=== PATIENT | male | born 1985 | race Caucasian/White ===

== ENCOUNTER 2017-04-07 08:00 | Outpatient (CLI) | payer MEDICAID ==
[2017-04-07 18:07] LABS: BASOPHILS # (AUTO) 0.1 10^3/uL (0.0-0.1); BASOPHILS % (AUTO) 0.5 %; EOSINOPHILS # (AUTO) 0.3 10^3/uL (0.0-0.7); EOSINOPHILS % (AUTO) 2.5 %; HGB - HEMOGLOBIN 16.8 g/dL (14.0-18.0); LYMPHOCYTES # (AUTO) 3.1 10^3/uL (1.5-3.5); LYMPHOCYTES % (AUTO) 25.5 %; MEAN CORPUSCULAR HEMOGLOBIN 28.8 pg (27.0-31.0); MEAN CORPUSCULAR VOLUME 87.4 fL (80.0-94.0); MEAN PLATELET VOLUME 7.9 fL (7.4-11.4); MONOCYTES % (AUTO) 7.8 %; NEUTROPHILS # (AUTO) 7.8 10^3/uL (1.5-6.6); NEUTROPHILS % (AUTO) 63.7 %; PLT - PLATELET COUNT 328 10^3/uL (130-450); RED BLOOD COUNT 5.82 10^6/uL (4.70-6.10); RED CELL DISTRIBUTION WIDTH 13.1 % (12.0-15.0); WHITE BLOOD COUNT 12.3 x10^3/uL (4.8-10.8)
[2017-04-07 18:35] LABS: ALBUMIN 4.6 g/dL (3.2-5.5); ALBUMIN/GLOBULIN RATIO 1.2 (1.0-2.2); BILIRUBIN,TOTAL 0.6 mg/dL (0.2-1.0); CALCIUM 9.5 mg/dL (8.5-10.3); CREATININE 0.8 mg/dL (0.6-1.2); TOTAL PROTEIN 8.4 g/dL (6.7-8.2)
== END 2017-04-07 08:01 | disposition home or self-care (01) ==
LOC: LAB.F 08:00
PROVIDERS: ATTEND Nurse Practitioner Family
DX: R06.02 Shortness of breath (principal)
CPT/HCPCS: 36415; 80053; 83540; 83880; 84466; 85025

== ENCOUNTER 2017-04-07 14:48 | Outpatient (CLI) | payer MEDICAID ==
--- NOTE | 2017-04-07 16:03 | XRAY Report ---
DATE OF SERVICE: 04/07/2017 TWO VIEW CHEST: 04/07/2017 CLINICAL INDICATION: Shortness of breath. COMPARISON: 12/24/2014. FINDINGS: Frontal and lateral views of the chest demonstrate a normal cardiac silhouette. The lungs are clear. No effusion or pneumothorax is present. IMPRESSION: NORMAL CHEST. TD: 04/07/2017 17:02
== END 2017-04-07 14:49 | disposition home or self-care (01) ==
LOC: DI.S 14:48
PROVIDERS: ATTEND Nurse Practitioner Family
DX: R06.02 Shortness of breath (principal)
CPT/HCPCS: 36415; 71046; 80053; 83540; 83880; 84466; 85025; 93005

== ENCOUNTER 2017-04-16 09:29 | Outpatient (CLI) | payer MEDICAID ==
[2017-04-16] MEDS ORDERED: ALBUTEROL NEB 2.5 MG/3 ML INH ONE (11:00)
== END 2017-04-16 09:30 | disposition home or self-care (01) ==
LOC: RT 09:29
PROVIDERS: ATTEND Nurse Practitioner Family
DX: R06.02 Shortness of breath (principal)
CPT/HCPCS: 94060; J7613

== ENCOUNTER 2017-04-17 14:15 | Outpatient (CLI) | payer MEDICAID ==
[2017-04-17 17:52] LABS: BASOPHILS # (AUTO) 0.1 10^3/uL (0.0-0.1); BASOPHILS % (AUTO) 0.6 %; EOSINOPHILS # (AUTO) 0.4 10^3/uL (0.0-0.7); EOSINOPHILS % (AUTO) 2.5 %; HGB - HEMOGLOBIN 16.2 g/dL (14.0-18.0); LYMPHOCYTES # (AUTO) 4.3 10^3/uL (1.5-3.5); LYMPHOCYTES % (AUTO) 29.7 %; MEAN CORPUSCULAR HEMOGLOBIN 28.9 pg (27.0-31.0); MEAN CORPUSCULAR HGB CONC 33.4 g/dL (32.0-36.0); MEAN CORPUSCULAR VOLUME 86.5 fL (80.0-94.0); MEAN PLATELET VOLUME 8.7 fL (7.4-11.4); MONOCYTES # (AUTO) 1.1 10^3/uL (0.0-1.0); MONOCYTES % (AUTO) 7.6 %; NEUTROPHILS # (AUTO) 8.6 10^3/uL (1.5-6.6); NEUTROPHILS % (AUTO) 59.6 %; PLT - PLATELET COUNT 308 10^3/uL (130-450); RED BLOOD COUNT 5.62 10^6/uL (4.70-6.10); RED CELL DISTRIBUTION WIDTH 13.1 % (12.0-15.0); WHITE BLOOD COUNT 14.5 x10^3/uL (4.8-10.8)
== END 2017-04-17 14:16 | disposition home or self-care (01) ==
LOC: LAB.S 14:15
PROVIDERS: ATTEND Nurse Practitioner Family
DX: R53.82 Chronic fatigue, unspecified (principal); R63.5 Abnormal weight gain
CPT/HCPCS: 36415; 84443; 85025

== ENCOUNTER 2018-04-03 15:22 | Observation (INO) | payer MEDICAID ==
[2018-04-03] MEDS ORDERED: MORPHINE 2 MG/ML CARPUJECT IVP STA ×2 (15:44→18:34)
[2018-04-03] MEDS ORDERED: ONDANSETRON 4 MG/2 ML VIAL IVP STA (15:44)
[2018-04-03] MEDS ORDERED: SODIUM CHLORIDE 0.9% 1,000 ML IV ONE ×2 (15:44→18:17)
[2018-04-03] MEDS ORDERED: ALBUTEROL NEB 2.5 MG/3 ML INH STA (15:45)
--- NOTE | 2018-04-03 15:48 | ED Physician Documentation ---
History of Present Illness - Stated complaint Stated Complaint: AB PX - Chief complaint Chief Complaint: Abd Pain - History obtained from History obtained from: Patient - History of Present Illness Timing: How many weeks ago (several) Pain level max: 8 Pain level now: 8 Improved by: nothing Worsened by: nothing - Additonal information Additional information: Patient is a 33-year-old male who presents to the emergency department with multiple medical problems. The first is increasing abdominal distention over the past several weeks. Also noted yellowing of the skin and eyes. He saw his PCP today who referred him here. The second is a rash to the groin that is been ongoing for several weeks. States it is worsening and he feels that there is pus draining between his legs. Patient does have a history of heavy alcohol use, but states he has cut back over the last year. No fevers. No vomiting, has had diarrhea. No blood. Patient states he is having difficulty urinating and dark urine as well. Review of Systems Ten Systems: 10 systems reviewed and negative Constitutional: denies: Fever, Chills Ears: denies: Ear pain Nose: denies: Rhinorrhea / runny nose, Congestion Throat: denies: Sore throat Cardiac: denies: Chest pain / pressure Respiratory: reports: Wheezing (out of his inhaler). denies: Dyspnea, Cough GI: denies: Nausea, Vomiting, Diarrhea : denies: Dysuria Skin: denies: Rash Musculoskeletal: denies: Neck pain, Back pain Neurologic: denies: Headache PD PAST MEDICAL HISTORY - Past Medical History Past Medical History: Yes Respiratory: Asthma Psych: Anxiety - Past Surgical History Past Surgical History: Yes - Present Medications Home Medications: Ambulatory Orders Medication Instructions Recorded Confirmed LORazepam [Ativan] 0.5 - 1 mg PO Q6H PRN #20 tablet 10/31/15 Nystatin 5 ml PO QID 10 Days ml 10/31/15 Nystatin Cream [Mycostatin Cream] 1 applic TOP BID #1 tube 10/31/15 Ondansetron Odt [Zofran] 4 mg TL Q6H PRN #10 tablet 10/31/15 - Allergies Allergies/Adverse Reactions: Allergies Allergy/AdvReac Type Severity Reaction Status Date / Time No Known Drug Allergies Allergy Verified 12/24/14 15:18 - Living Situation Living Situation: reports: With family Living Arrangement: reports: At home - Social History Does the pt smoke?: Yes Smoking Status: Current every day smoker Does the pt drink ETOH?: Yes Does the pt have substance abuse?: Yes - Immunizations Immunizations are current?: No PD ED PE NORMAL - Vitals Vital signs reviewed: Yes - General General: Alert and oriented X 3, No acute distress - HEENT HEENT: PERRL, Moist mucous membranes, Pharynx benign, Other (scleral icterus) - Neck Neck: Supple, no meningeal sign - Cardiac Cardiac: RRR - Respiratory Respiratory: No respiratory distress, Clear bilaterally - Abdomen Abdomen: Soft, Other (mild diffuse TTP. no peritoneal signs. 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[employer]), Other (erythema and pustules to the groin and perineum) - Back Back: No CVA TTP, No spinal TTP - Derm Derm: Warm and dry - Extremities Extremities: Other (1+ B LE edema) - Neuro Neuro: Alert and oriented X 3 - Psych Psych: Normal mood, Normal affect Results - Vitals Vitals: Vital Signs - 24 hr 04/03/18 04/03/18 04/03/18 15:24 16:01 17:18 Temperature 36.2 C L Heart Rate 118 H 108 H 87 Respiratory 18 11 L 11 L Rate Blood Pressure 161/104 H 166/102 H O2 Saturation 96 99 Oxygen O2 Source Room air - Labs Labs: Laboratory Tests 04/03/18 04/03/18 04/03/18 15:34 15:49 15:49 WBC 16.6 H RBC 3.76 L Hgb 13.7 L Hct 41.2 L MCV 109.7 H MCH 36.4 H MCHC 33.2 RDW 17.4 H Plt Count 352 MPV 7.5 Neut # (Auto) Not Reportable Lymph # (Auto) Not Reportable [place] # (Auto) Not Reportable Eos # (Auto) Not Reportable Baso # (Auto) Not Reportable Absolute Nucleated RBC Not Reportable Total Counted 100 Band Neuts % (Manual) 4 Abnorm Lymph % (Manual) 0 Nucleated RBC % Not Reportable Neutrophils # (Manual) 14.8 H Lymphocytes # (Manual) 1.2 L Monocytes # (Manual) 0.7 Eosinophils # (Manual) 0.0 Basophils # (Manual) 0.0 Differential Comment MANUAL DIFFERENTIAL Manual Slide Review Indicated WBC Morphology NORMAL APPEARANCE Platelet Estimate NORMAL (130-450,000) Platelet Morphology NORMAL APPEARANCE RBC Morph Micro Appear 1+ TARGET CELLS PT INR APTT Sodium 133 L Potassium 3.4 L Chloride 95 L Carbon Dioxide 23 Anion Gap 15.0 H BUN 5 L Creatinine 0.5 L Estimated GFR (MDRD) 189 Glucose 118 H Calcium 8.2 L Iron TIBC % Saturation Transferrin Total Bilirubin 9.6 H AST 311 H ALT 67 H Alkaline Phosphatase 239 H Total Protein 7.7 Albumin 3.0 L Globulin 4.7 H Albumin/Globulin Ratio 0.6 L Lipase 38 Urine Color ORANGE Urine Clarity TURBID Urine pH 6.5 Ur Specific [place] 1.025 Urine Protein 30 H Urine Glucose (UA) 100 H Urine Ketones >=80 H Urine Occult Blood NEGATIVE Urine Nitrite POSITIVE H Urine Bilirubin NEGATIVE Urine Urobilinogen 2 H Ur Leukocyte Esterase NEGATIVE Urine RBC 0-5 Urine WBC 0-3 Ur Squamous Epith Cells NONE SEEN Amorphous Sediment Marked Urine Bacteria None Seen Urine Mucus Marked Strands Ur Microscopic Review INDICATED Urine Culture Comments INDICATED 04/03/18 04/03/18 04/03/18 15:49 15:49 16:57 WBC RBC Hgb Hct MCV MCH MCHC RDW Plt Count MPV Neut # (Auto) Lymph # (Auto) [place] # (Auto) Eos # (Auto) Baso # (Auto) Absolute Nucleated RBC Total Counted Band Neuts % (Manual) Abnorm Lymph % (Manual) Nucleated RBC % Neutrophils # (Manual) Lymphocytes # (Manual) Monocytes # (Manual) Eosinophils # (Manual) Basophils # (Manual) Differential Comment Manual Slide Review WBC Morphology Platelet Estimate Platelet Morphology RBC Morph Micro Appear PT 16.8 H INR 1.5 H APTT 32.3 Sodium Potassium Chloride Carbon Dioxide Anion Gap BUN Creatinine Estimated GFR (MDRD) Glucose Calcium Iron 75 TIBC 193 L % Saturation 39 Transferrin 138 L Total Bilirubin AST ALT Alkaline Phosphatase Total Protein Albumin Globulin Albumin/Globulin Ratio Lipase Urine Color Urine Clarity Urine pH Ur Specific [place] Urine Protein Urine Glucose (UA) Urine Ketones Urine Occult Blood Urine Nitrite Urine Bilirubin Urine Urobilinogen Ur Leukocyte Esterase Urine RBC Urine WBC Ur Squamous Epith Cells Amorphous Sediment Urine Bacteria Urine Mucus Ur Microscopic Review Urine Culture Comments - Rads (name of study) CT abd/pelvis Radiology: Prelim report reviewed, EMP read contemporaneously, See rad report (There is severe hepatic steatosis. Small amount of ascites. No dilated or thick-walled bowel is seen. No evidence of bowel obstruction. No clear evidence of appendicitis. ) abd US Radiology: Prelim report reviewed, EMP read contemporaneously, See rad report (Diffuse hepatic steatosis. No acute sonographic abnormalities. ) PD MEDICAL DECISION MAKING - ED course Complexity details: reviewed results, re-evaluated patient, considered differential, d/w patient, d/w family, d/w health and safety consultant ED course: D/w Dr. Raad ULLOA who recommends supportive care overnight, recheck in am and if improved can follow up in clinic, if worsening, recontact GI for further care recommendations. Patient appears to have severe steatohepatitis on CT scan. Iron studies were sent for possible hematomacrosis. ceruloplasmin was sent for possible Anthony's disease. He also appears to have a significant fungal infection in his groin with secondary infection. Given IV antibiotics and nystatin powder. We will pl josiane the patient in observation for repeat laboratory testing in the morning. Patient is well-appearing, nontoxic. Discussed the case with Dr. Gonzalez, hospitalist who accepts This document was made in part using voice recognition software. While efforts are made to proofread this document, sound alike and grammatical errors may occur. Departure - Departure Disposition: ED Place in Observation Clinical Impression: Hyperbilirubinemia, Transaminitis, Steatohepatitis, Rosa infection of genital region, Secondary infection of skin Condition: Stable Discharge Date/Time: 04/03/18 19:25
[2018-04-03 16:05] LABS: BASOPHILS % (AUTO) 1.5 %; HGB - HEMOGLOBIN 13.7 g/dL (14.0-18.0); LYMPHOCYTES % (AUTO) 6.8 %; MEAN CORPUSCULAR HEMOGLOBIN 36.4 pg (27.0-31.0); MEAN CORPUSCULAR HGB CONC 33.2 g/dL (32.0-36.0); MEAN CORPUSCULAR VOLUME 109.7 fL (80.0-94.0); MEAN PLATELET VOLUME 7.5 fL (7.4-11.4); NEUTROPHILS % (AUTO) 84.7 %; PLT - PLATELET COUNT 352 10^3/uL (130-450); RED BLOOD COUNT 3.76 10^6/uL (4.70-6.10); RED CELL DISTRIBUTION WIDTH 17.4 % (12.0-15.0); WHITE BLOOD COUNT 16.6 x10^3/uL (4.8-10.8)
[2018-04-03] MEDS ORDERED: IOVERSOL 320 100 ML VIAL IVP ONE ×2 (16:05→16:35)
[2018-04-03 16:09] LABS: ABNORMAL LYMPHS % (MANUAL) 0 %
[2018-04-03 16:11] LABS: ALBUMIN/GLOBULIN RATIO 0.6 (1.0-2.2); BILIRUBIN,TOTAL 9.6 mg/dL (0.2-1.0); CALCIUM 8.2 mg/dL (8.5-10.3); CREATININE 0.5 mg/dL (0.6-1.2); TOTAL PROTEIN 7.7 g/dL (6.7-8.2)
[2018-04-03 16:24] LABS: GLUCOSE, URINE (UA) 100 mg/dL (NEGATIVE); KETONES,URINE (UA) >=80 mg/dL (NEGATIVE); LEUKOCYTE ESTERASE, URINE NEGATIVE (NEGATIVE); NITRITE,URINE POSITIVE (NEGATIVE); OCCULT BLOOD,URINE NEGATIVE (NEGATIVE); PH,URINE 6.5 PH (5.0-7.5); PROTEIN,URINE 30 mg/dL (NEGATIVE); UROBILINOGEN,URINE 2 E.U./dL (NORMAL)
[2018-04-03 16:31] LABS: INR 1.5 (0.8-1.2); PT - PROTHROMBIN TIME 16.8 secs (9.9-12.6)
[2018-04-03 16:32] LABS: AMORPHOUS SEDIMENT,UR Marked /LPF; BACTERIA,URINE None Seen /HPF (None Seen); BILIRUBIN,URINE NEGATIVE (NEGATIVE); CLARITY,URINE TURBID (CLEAR); ICTOTEST,URINE NEGATIVE; MUCUS,URINE Marked Strands; RBC,URINE 0-5 /HPF (0-5); SQUAMOUS EPITHELIAL CELL,UR NONE SEEN (<= Few)
[2018-04-03 16:37] LABS: BAND NEUTROPHILS % (MANUAL) 4 %; LYMPHOCYTES # (MANUAL) 1.2 10^3/uL (1.5-3.5); LYMPHOCYTES % (MANUAL) 7 %; MONOCYTES # (MANUAL) 0.7 10^3/uL (0.0-1.0); NEUTROPHILS # (MANUAL) 14.8 10^3/uL (1.5-6.6); NEUTROPHILS % (MANUAL) 85 %
[2018-04-03 16:38] LABS: DIFFERENTIAL COMMENT MANUAL DIFFERENTIAL; PLATELET ESTIMATE, MANUAL NORMAL (130-450,000) (NORMAL); PLATELET MORPHOLOGY NORMAL APPEARANCE (NORMAL)
--- NOTE | 2018-04-03 17:04 | CT Report ---
Reason: abd distention, jaundice, pain Procedure Date: 04/03/2018 Accession Number: [id number] / [id number] Procedure: CT - Abdomen/Pelvis W/ CPT Code: FULL RESULT: EXAM: CT ABDOMEN AND PELVIS EXAM DATE: 04/03/2018 04:23 PM. CLINICAL HISTORY: Abd distention, jaundice, pain. COMPARISONS: None. TECHNIQUE: Routine helical CT imaging was performed through the abdomen and pelvis. IV contrast: OPTIRAY 320 90mL. Enteric contrast: No. Reconstructions: Coronal and sagittal. In accordance with CT protocol optimization, one or more of the following dose reduction techniques were utilized for this exam: automated exposure control, adjustment of mA and/or KV based on patient size, or use of iterative reconstructive technique. FINDINGS: Lung Bases: Unremarkable. Liver: There is severe hepatic steatosis. No focal hepatic lesions are seen. Gallbladder/Bile Ducts: Unremarkable. Spleen: Normal. Pancreas: Normal. Adrenal Glands: Normal. Kidneys: Normal. No masses or hydronephrosis. Peritoneal Cavity/Bowel: No dilated or thick-walled bowel is seen. There are is a small amount of free fluid within the right lower quadrant and pelvis. No intraperitoneal free air. There are mildly enlarged fam hepatis lymph nodes. No enlarged retroperitoneal lymph nodes. The visualized appendix is within normal limits. The distal appendix is obscured by right lower quadrant fluid. Pelvic Organs: Normal. The bladder and visualized pelvic organs are within normal limits. Vasculature: No aneurysms or other significant abnormality. Bones: Patient has undergone internal fixation of right acetabular fracture. No acute bony abnormalities are seen. Other: None. IMPRESSION: 1. There is severe hepatic steatosis. 2. Small amount of ascites. 3. No dilated or thick-walled bowel is seen. No evidence of bowel obstruction. No clear evidence of appendicitis. RADIA
--- NOTE | 2018-04-03 17:18 | Ultrasound Report ---
Reason: abd distention, jaundice, pain Procedure Date: 04/03/2018 Accession Number: [id number] / [id number] Procedure: US - Abdomen Limited CPT Code: FULL RESULT: EXAM: ABDOMEN ULTRASOUND LIMITED, RUQ EXAM DATE: 04/03/2018 05:02 PM. CLINICAL HISTORY: Abd distention, jaundice, pain. COMPARISON: None. TECHNIQUE: Real-time scanning was performed with static images obtained. FINDINGS: Liver: Diffusely increased echogenicity 20.3 cm. Main portal vein flow: Hepatopetal. Gallbladder: No stones, wall thickening, or sonographic Smith's sign. Biliary System: CBD measures 4 mm. No intrahepatic or extrahepatic ductal dilatation. Other: Right kidney measures 10.4 cm without hydronephrosis. IMPRESSION: Diffuse hepatic steatosis. No acute sonographic abnormalities. RADIA
[2018-04-03 17:27] LABS: % IRON SATURATION 39 % (20-50); IRON 75 ug/dL (45-182); TOTAL IRON BINDING CAPACITY 193 ug/dL (250-450); TRANSFERRIN 138 mg/dL (180-329)
[2018-04-03] MEDS ORDERED: NYSTATIN POWDER 15 GM TOP STA (18:10)
[2018-04-03] MEDS ORDERED: AMPICILLIN/SULBACTAM 3 GM in SODIUM CHLORIDE 0.9% MINIBAG 100 ML IV STA (18:17)
[2018-04-03] MEDS ORDERED: ONDANSETRON ODT 4 MG TABLET TL PRN (18:40)
[2018-04-03] MEDS ORDERED: SODIUM CHLORIDE FLUSH 0.9% 10 ML SYRINGE IVP PRN (18:40)
[2018-04-03] MEDS ORDERED: PROCHLORPERAZINE 10 MG/2 ML VIAL IVP PRN (18:40)
[2018-04-03] MEDS ORDERED: ONDANSETRON 4 MG/2 ML VIAL IVP PRN (18:40)
[2018-04-03] MEDS ORDERED: IBUPROFEN 400 MG TABLET PO PRN (18:40)
--- NOTE | 2018-04-03 18:50 | HISTORY & PHYSICAL EXAMINATION ---
Chief Complaint - Chief Complaint Chief Complaint: Increasing abdominal pain, yellow stool, jaundice, and lower groin rash History of Present Illness - Admitted From Admitted From:: Home/ER - History Obtained From Records Reviewed: [facility] and [facility] History obtained from: Dr. Mcgowan, brad, and patient Exam Limitations: None - History of Present Illness HPI Comment/Other: This is a 33-year-old man who went to see his primary care provider today because he had a rash. The symptoms began 3 weeks ago and were over his lower abdomen and groin. He was also having decreased urine output and problems urinating. He said in the last week is probably urinated less than a cup of fluid. He also started vomiting, and he does not know why. He cannot remember when he started vomiting. His abdomen has become distended and painful. His testicles are enlarged. His stools are different and that he is noticing more more mucus and that they are yellow. He is a drinker and drank quite a bit around [place]. He did not go see his doctor because he was worried about legal issues. He does have a history of hepatitis C that was treated in 2007 Noted in his outpatient medical record. But he says he is never had hepatitis C. With Dr. Mcgowan's history he is told that the patient has increasing abdominal pain, increasing abdominal girth, jaundice, diarrhea. For the last 2 days he has not been able to urinate. In the emergency room he is hyponatremic, hypokalemic, a bili of 9.6, AST 311, ALT 67. Alk phos is 239. INR is 1.5. White blood count is elevated at 16.6. His white cell count has been elevated over the last year. His sister has been diagnosed with sarcoidosis. Dr. Mcgowan spoke to Dr. Shankar, [facility] gastroenterology. They would like the patient placed under observation to make sure his liver enzymes are getting any worse. They want him hydrated, and his labs repeated tomorrow. If his labs are worse to recontact them because he may need to be transferred. If his labs are better stable he is probably a candidate for going home and following up with his primary care provider. History - Past Medical History Cardiovascular: reports: None Respiratory: reports: Asthma (Pulmonary function studies done in 2018 FVC is 3.94, FEV1 is 2.94. Ratio is 74%. They are mildly reduced indicating airway obstruction. Following administration of bronchodilators there is no significant response. He has had a CT of the chest looking for sarcoidosis.) Neuro: reports: None Endocrine/Autoimmune: reports: None GI: reports: GERD, Hemorrhoids, Hepatitis (Hepatitis C is noted in his past medical record and the [facility] clinic chart. It said he was treated in 2007. But he denies ever having hepatitis C) : reports: None HEENT: reports: None Psych: reports: Anxiety, Other (social aversion) Musculoskeletal: reports: Fatigue, Other (chronic right hip pain) Derm: reports: None MRSA Hx?: No - Past Surgical History Ortho: reports: Other (Right acetabular fracture with repair in 2008) - Family & Social History Family History Comment/Other: Mother is alive and well and healthy with no major medical issues In her mid 70s. Dad is alive and well with no major medical issues In his mid 70s. He is 1 of 5 siblings. Sister has sarcoidosis. One brother of alcoholic liver disease. 3 children are healthy with no major medical illnesses Living arrangement: At home Living Situation: With family Social History Notes: smokes 1/2 ppd. Drinks a 750 mL bottle of vodka, half of it, once a week. Continue to drink through the holidays. He started drinking in the summer and is continued into the winter. He was off alcohol for a year. He denies any cocaine, heroin, LSD, methamphetamines. Right [facility] taking care of 3 kids. 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 - Substance History Use: Uses substance without health or social issues: Tobacco, Alcohol - POLST Patient has POLST: No Meds/Allgy - Home Medications Home Medications: Ambulatory Orders Medication Instructions Recorded Confirmed LORazepam [Ativan] 0.5 - 1 mg PO Q6H PRN #20 tablet 10/31/15 Ondansetron Odt [Zofran] 4 mg TL Q6H PRN #10 tablet 10/31/15 RX: Nystatin 5 ml PO QID 10 Days ml 10/31/15 RX: Nystatin Cream [Mycostatin 1 applic TOP BID #1 tube 10/31/15 Cream] - Allergies Allergies/Adverse Reactions: Allergies Allergy/AdvReac Type Severity Reaction Status Date / Time No Known Drug Allergies Allergy Verified 12/24/14 15:18 Review of Systems - Constitutional Constitutional: reports: Fatigue, Chills, Malaise, Weakness, Poor appetite, Weight gain. denies: Fever, Diaphoresis, Night sweats - Eyes Eyes: denies: Pain, Irritation, Amaurosis, Blurred vision, Dipolpia - Ears, Nose & Throat Ears, Nose & Throat: denies: Ear pain, Hearing loss, Hearing aids, Nasal congestion, Postnasal drainage - Cardiovascular Cariovascular: reports: Edema, Exertional dyspnea, Decr. exercise tolerance. denies: Irregular heart rate, Palpitations, Chest pain, Lightheadedness, Syncope - Respiratory Respiratory: reports: Wheezing (Uses [id number] Primatene Mist as needed done so in a few weeks). denies: Cough, Sputum production, Snoring, Hemoptysis, Orthopnea, SOB at rest - Gastrointestinal Gastrointestinal: reports: Abdominal pain, Abdominal distention, Diarrhea (Of yellow stool that started about a month and a half ago), Change in bowel habits, Nausea, Vomiting, Reflux/heartburn (Protonix for the last week has not helped), Bloating, Poor appetite. denies: Constipation, Rectal bleeding, Levar blood emesis, Coffee grounds emesis - Genitourinary Genitourinary: reports: Other (Has been urinating less and less over the last week). denies: Dysuria, Frequency, Urgency, Hematuria - Musculoskeletal Musculoskeletal: denies: Muscle pain, Back pain, Muscle aches, Stiffness - Integumentary Integumentary: reports: Rash (Lower abdomen and into perineum), Lesions - Neurological Neurological: reports: General weakness. denies: Focal weakness, Headache, Dizziness, Numbness, Memory problems, Pre-existing deficit, Abnormal gait - Psychiatric Psychiatric: denies: Depression, Anxiety, Suicidal - Endocrine Endocrine: denies: Polyuria, Polydypsia, Polyphagia - Hematologic/Lymphatic Hematologic/Lymphatic: denies: Anemia, Bruising, Petechiae Prior Level of Functionality: Up until a month ago he was completely independent with activities of daily living. He takes care of 3 kids at home. Very active children. Drives, pays bills, etc. Starting a month ago started to slow down, and spends most of his time in a chair right now because of abdominal discomfort, fatigue, and just not feeling well Exam - Vital Signs Reviewed Vital Signs: Yes Vital Signs: Vital Signs x48h Temp Pulse Resp BP Pulse Ox 04/03/18 17:18 87 11 L 04/03/18 16:01 108 H 11 L 166/102 H 99 04/03/18 15:24 36.2 C L 118 H 18 161/104 H 96 - Physical Exam General Appearance: positive: Alert, Mild distress Eyes Bilateral: positive: PERRL, EOMI, Other (Icterus bilaterally) ENT: positive: Dry mucous membranes Neck: positive: No JVD. negative: Stiff neck, Carotid bruit Respiratory: positive: Chest non-tender, Rhonchi. negative: Wheezes, Rales Cardiovascular: positive: Regular rate & rhythm, No murmur. negative: Gallop/S4, Friction rub Peripheral Pulses: positive: 1+ Abdomen: positive: Tenderness, Other (Huge distended abdomen, edematous over his lower abdomen into his testicles and perineum and upper thighs. Skin breakdown into intertriginous folds of groin, perineum is red and macerated. Testicles distended with fluid. Penis is almost disappeared into his folds.) Skin: positive: Warm Extremities: positive: Full ROM, Pedal edema Neurologic/Psychiatric: positive: Oriented x3, CN's nml (2-12), Motor nml, Weakness Conclusion/Plan - Problem List (1) Hepatitis Conclusion/Plan: This gentleman may have alcoholic hepatitis with liver failure.. Hepatitis from another cause such as autoimmune hepatitis, infectious hepatitis (A, B, C) disease. No one else is sick in the family. He is not in any employment that would expose him to toxins. He has been drinking quite a bit. Then there is the hepatitis C positive history and his old medical record that he does not remember. We will have to speak to his primary care provider. Per [facility] gastroenterology request, we have already done hepatitis panel. His abdominal ultrasound shows diffuse hepatic steatosis. Gallbladder is without stones or wall thickening or Smith sign. Common bile duct is 4 mm. Abdominal/pelvic CT has severe hepatic steatosis. No focal hepatic lesions. Gallbladder normal. Spleen is normal and no evidence of portal hypertension. There is a small amount of free fluid within the right lower quadrant and pelvis. No intraperitoneal free air. The urinary bladder and visualized pelvic organs are within normal limits. Small amount of ascites. Plan: Observation stay IV fluids for hydration Control of symptoms of nausea and vomiting with antiemetics Reassess in the morning and speak to [facility] to see if he is a candidate for transfer or to go home (2) Electrolyte and fluid disorder Conclusion/Plan: Hyponatremia, hypokalemia seen in the face of hepatitis. Plan: Simple IV fluids. Repeat BMP in the morning. (3) Alcohol abuse Conclusion/Plan: We will watch for signs of withdrawal. Give a banana bag. Will check urine tox screen to make sure there is no other substances he may not be so forthright about. (4) Cellulitis, perineum Conclusion/Plan: unsasyn day #2. also will add nystain power. - Lab Results Lab results reviewed: Yes Fish Bones: 04/04/18 05:10 04/04/18 05:10 Other Lab Results: Laboratory Tests 04/03/18 04/03/18 04/03/18 15:49 15:49 15:49 WBC 16.6 H Hgb 13.7 L Hct 41.2 L Plt Count 352 INR 1.5 H Sodium 133 L Potassium 3.4 L Chloride 95 L Anion Gap 15.0 H BUN 5 L Creatinine 0.5 L Glucose 118 H Total Bilirubin 9.6 H AST 311 H ALT 67 H Alkaline Phosphatase 239 H Lipase 38 - Diagnostic Imaging Results Diagnostic Imaging Results: positive: Final report reviewed Diagnostic Imaging Results Comments: ABDOMEN ULTRASOUND LIMITED, RUQ EXAM DATE: 04/03/2018 05:02 PM. CLINICAL HISTORY: Abd distention, jaundice, pain. COMPARISON: None. TECHNIQUE: Real-time scanning was performed with static images obtained. FINDINGS: Liver: Diffusely increased echogenicity 20.3 cm. Main portal vein flow: Hepatopetal. Gallbladder: No stones, wall thickening, or sonographic Smith's sign. Biliary System: CBD measures 4 mm. No intrahepatic or extrahepatic ductal dilatation. Other: Right kidney measures 10.4 cm without hydronephrosis. IMPRESSION: Diffuse hepatic steatosis. No acute sonographic abnormalities. CT ABDOMEN AND PELVIS EXAM DATE: 04/03/2018 04:23 PM. CLINICAL HISTORY: Abd distention, jaundice, pain. COMPARISONS: None. TECHNIQUE: Routine helical CT imaging was performed through the abdomen and pelvis. IV contrast: OPTIRAY 320 90mL. Enteric contrast: No. Reconstructions: Coronal and sagittal. In accordance with CT protocol optimization, one or more of the following dose reduction techniques were utilized for this exam: automated exposure control, adjustment of mA and/or KV based on patient size, or use of iterative reconstructive technique. FINDINGS: Lung Bases: Unremarkable. Liver: There is severe hepatic steatosis. No focal hepatic lesions are seen. Gallbladder/Bile Ducts: Unremarkable. Spleen: Normal. Pancreas: Normal. Adrenal Glands: Normal. Kidneys: Normal. No masses or hydronephrosis. Peritoneal Cavity/Bowel: No dilated or thick-walled bowel is seen. There are is a small amount of free fluid within the right lower quadrant and pelvis. No intraperitoneal free air. There are mildly enlarged fam hepatis lymph nodes. No enlarged retroperitoneal lymph nodes. The visualized appendix is within normal limits. The distal appendix is obscured by right lower quadrant fluid. Pelvic Organs: Normal. The bladder and visualized pelvic organs are within normal limits. Vasculature: No aneurysms or other significant abnormality. Bones: Patient has undergone internal fixation of right acetabular fracture. No acute bony abnormalities are seen. Other: None. IMPRESSION: 1. There is severe hepatic steatosis. 2. Small amount of ascites. 3. No dilated or thick-walled bowel is seen. No evidence of bowel obstruction. No clear evidence of appendicitis. Core Measures - Anticipated LOS I expect patient to be DC'd or transferred within 96 hours.: Yes - DVT/VTE - Prophylaxis VTE/DVT Device ordered at admit?: Yes
[2018-04-03] MEDS ORDERED: SODIUM CHLORIDE 0.9% 1,000 ML IV SCH (19:00)
[2018-04-03] MEDS: oxyCODONE 5 MG TABLET PO PRN (20:08)
[2018-04-03] MEDS ORDERED: hydrOXYzine PAMOATE 25 MG CAPSULE PO PRN (20:42)
[2018-04-03] MEDS ORDERED: ALBUTEROL NEB 2.5 MG/3 ML INH PRN (20:42)
[2018-04-03 21:12] LABS: MUDS CUTOFF CONCENTRATIONS CUTOFF CONC BELOW:
[2018-04-03 21:24] LABS: AMPHETAMINE SCREEN,URINE NEGATIVE (NEGATIVE); BENZODIAZEPINES SCREEN, URINE NEGATIVE (NEGATIVE); COCAINE SCREEN URINE NEGATIVE (NEGATIVE); METHADONE SCREEN, URINE NEGATIVE (NEGATIVE); METHAMPHETAMINES SCREEN, URINE NEGATIVE (NEGATIVE); OPIATE SCREEN, URINE POSITIVE (NEGATIVE); OXYCODONE SCREEN, URINE NEGATIVE (NEGATIVE); PROPOXYPHENE SCREEN, URINE NEGATIVE (NEGATIVE); TRICYCLIC ANTIDEPRESSANT,URINE NEGATIVE (NEGATIVE)
[2018-04-03] MEDS: MORPHINE 2 MG/ML CARPUJECT IVP PRN (21:28)
[2018-04-03] MEDS: guaiFENesin/DEXTROMETHORPHAN 10 ML UDC PO PRN (21:29)
[2018-04-04] MEDS ORDERED: SODIUM CHLORIDE 0.9% 1,000 ML IV SCH (01:01)
[2018-04-04] MEDS: SODIUM CHLORIDE FLUSH 0.9% 10 ML SYRINGE IVP SCH ×2 (01:13→09:32)
[2018-04-04] MEDS: guaiFENesin/DEXTROMETHORPHAN 10 ML UDC PO PRN (03:32)
[2018-04-04] MEDS: oxyCODONE 5 MG TABLET PO PRN ×2 (05:29→11:17)
[2018-04-04 05:41] LABS: BASOPHILS % (AUTO) 0.3 %; EOSINOPHILS % (AUTO) 0.4 %; HGB - HEMOGLOBIN 12.7 g/dL (14.0-18.0); LYMPHOCYTES # (AUTO) 1.7 10^3/uL (1.5-3.5); LYMPHOCYTES % (AUTO) 14.7 %; MEAN CORPUSCULAR HEMOGLOBIN 37.6 pg (27.0-31.0); MEAN CORPUSCULAR HGB CONC 33.9 g/dL (32.0-36.0); MEAN PLATELET VOLUME 7.4 fL (7.4-11.4); MONOCYTES # (AUTO) 0.8 10^3/uL (0.0-1.0); MONOCYTES % (AUTO) 6.8 %; NEUTROPHILS # (AUTO) 8.7 10^3/uL (1.5-6.6); NEUTROPHILS % (AUTO) 77.8 %; PLT - PLATELET COUNT 229 10^3/uL (130-450); RED BLOOD COUNT 3.39 10^6/uL (4.70-6.10); RED CELL DISTRIBUTION WIDTH 17.4 % (12.0-15.0); WHITE BLOOD COUNT 11.2 x10^3/uL (4.8-10.8)
[2018-04-04 05:44] LABS: INR 1.5 (0.8-1.2)
[2018-04-04 05:49] LABS: ALBUMIN 2.5 g/dL (3.2-5.5); ALBUMIN/GLOBULIN RATIO 0.6 (1.0-2.2); BILIRUBIN,TOTAL 9.9 mg/dL (0.2-1.0); CALCIUM 7.8 mg/dL (8.5-10.3); CREATININE 0.5 mg/dL (0.6-1.2); TOTAL PROTEIN 6.6 g/dL (6.7-8.2)
[2018-04-04 06:13] LABS: PLATELET ESTIMATE, MANUAL NORMAL (130-450,000) (NORMAL)
[2018-04-04] MEDS ORDERED: PANTOPRAZOLE 40 MG TABLET PO SCH (07:00)
[2018-04-04 07:32] VITALS: BP 129/85
[2018-04-04] MEDS: MORPHINE 2 MG/ML CARPUJECT IVP PRN (08:59)
[2018-04-04] MEDS ORDERED: MULTIVITAMIN 10 ML, THIAMINE INJ 100 MG, FOLIC ACID INJ 1 MG in SODIUM CHLORIDE 0.9% 1,... IV SCH (09:00)
[2018-04-04] MEDS ORDERED: POLYETHYLENE GLYCOL 3350 17 GM PACKET PO SCH (09:00)
--- NOTE | 2018-04-04 12:36 | Discharge Plan ---
Discharge Plan Disposition: Home, Self Care Condition: Stable Prescriptions: oxyCODONE [Roxicodone] 5 mg PO Q4HR PRN #30 tablet PRN Reason: Pain 5 to 7 Amoxicillin 500 mg PO TID #21 capsule Nystatin 1 each PO BID #1 bottle Nystatin Cream [Mycostatin Cream] 1 gm TOP BID #45 tube Diet: Low Sodium (low protein diet) Activity Restrictions: Activity as Tolerated Shower Restrictions: No Driving Restrictions: No Additional Instructions or Follow Up instructions: You were placed in observation in the hospital because you were having diffuse abdominal pain, yellow stools with diarrhea for the last month, had a rash on your perineum/lower abdomen and was just generally miserable. Your primary care provider saw you in the office and then sent you to our hospital. We found you to have liver failure. Liver failure can occur from either toxins (alcohol, medications, or herbs) to the liver, or infection, or inheritable autoimmune diseases. In listening to your history we think you have liver failure from alcohol abuse. A lot of blood tests have been sent off to figure out if there is any other causes of your liver failure. These will take over a week to get back. You did have an ultrasound and a CAT scan while you were in the hospital. The ultrasound and CAT scan both show a very enlarged, inflamed, fatty liver that may be either fatty liver with alcoholic hepatitis or early cirrhosis. In addition to the liver damage, the perineum or the skin between your rectum and testicles is quite inflamed. We think you have fungus as well as a secondary cellulitis. You need to keep this area clean and dry. You must take a bath every day. Dry the skin of this very carefully even if it means using a blow dryer to do it. Put nystatin cream and powder on the testicles and skin. And finished taking antibiotic for skin infection. In addition to the antibiotic and the creams and powders, he wanted something for pain. You felt that it warranted using opioids. As such were giving a small supply of medication. If you need a refill on pain medicine you will need to see your primary care provider for that. [facility] asked us to place you in observation. Give you IV fluids to see how you did overnight. Overnight your liver enzymes are better. Your bilirubin is a little bit higher but [facility] describes this as just "a lag time" before that starts to come down as well. They feel you are safe to go home. However you need to follow-up with them in the next 2-3 weeks. I will send a copy of your face sheet to them. But your primary care provider needs to make that referral[place] hours in the clinic they go to on the [place]. They will have access to all of your records. In the meantime, you are not to drink any alcohol whatsoever: Vodka, wine, beer, hard cider, or even low alcohol drinks. Do not take Tylenol. You should be on a low-sodium, low-protein diet. The [employer] foreman has given you information on that. It will take several weeks for your liver enzymes to get back to normal. But it takes 6 months for your liver to regenerate enough to heal. Please see your primary care provider in the next week. Make sure she refers you to [facility]. No Smoking: If you smoke, Please STOP! Call for help. Follow-up with: Mona Poole ARNP [Primary Care Provider] - Mag Shankar DO [Physician No Access] -
[2018-04-04 12:41] LABS: HEPATITIS A IGM NON-REACTIVE (NON-REACTIVE); HEPATITIS B CORE ANTIBODY IGM NON-REACTIVE (NON-REACTIVE); HEPATITIS B SURFACE ANTIGEN NON-REACTIVE (NON-REACTIVE); HEPATITIS C ANTIBODY NON-REACTIVE (NON-REACTIVE)
--- NOTE | 2018-04-05 19:52 | DISCHARGE SUMMARY ---
Physician: Marquita Gonzalez MD DATE OF ADMISSION: 04/03/2018 DATE OF DISCHARGE: 04/04/2018 DISCHARGE DIAGNOSES 1. Acute alcoholic hepatitis. 2. History of hepatitis C. 3. Electrolyte and fluid disorder. 4. Alcohol abuse. 5. Cellulitis, perineum. DISCHARGE MEDICATIONS 1. Ibuprofen 200 mg every 6 hours as needed for pain, fever, headache. 2. Multivitamin 1 tablet daily. 3. Omeprazole 20 mg daily. 4. Oxycodone 5 mg p.o. q.4 hours p.r.n. pain, #30, new prescription. 5. Amoxicillin 500 mg p.o. b.i.d. #21. 6. Nystatin cream b.i.d. to perineum after washing and drying carefully. 7. Nystatin powder on top of Nystatin cream b.i.d. PRINCIPAL PROCEDURES 1. Abdominal ultrasound with a diffusely increased echogenic liver that is 20 cm. The main portal v ein flow is hepatopetal. Gallbladder was benign. No Smith sign. 2. Abdomen/pelvis CT with severe hepatic steatosis. No focal hepatic lesions. A small amount of as cites. 3. Toxicology positive for opioids and cannabis. He had already received opioids in the ED when thi s became positive. 4. Hepatitis serology for A, B, C are negative. 5. INR is 1.5. 6. Urine culture negative at 24 hours. HOSPITAL COURSE: He is a 33-year-old morbidly obese male. He has a history of hepatitis C noted in the past histories of his medical chart. It says that he was treated in 2007. When asked about that , he says that he has no recollection of ever having hepatitis C or being treated for it. He has bee n drinking half a bottle of vodka over a year now. He had been dry for about a year, but went back t o drinking because of life stressors. He definitely drank too much around David time. Starting in February, he began having diffuse abdominal distention, aching in his right upper quadrant, epigas trium and right side of the belly. Stool started changing color to a less and less dark color to the point that it was yellow this last 2 weeks. He started having yellow diarrhea as well. He went to go see his primary care provider - not so much for these complaints, but because he had a rash in his lower abdomen that was going into his testicles and perineum that was painful and uncomfortable. He also had not urinated for a couple of days and was urinating less and less in spite of drinking more and more. He saw his primary care provider, who saw him and sent him to the ER. In the ER, he was found to hav e acute hepatitis, severe jaundice with a bili of 9. [facility] was contact ed, Dr. Shankar. She felt that he was stable enough to stay in our hospital overnight for observatio n. If he worsened over 24 hours, he would be a candidate for transfer to a higher level of care. If his liver enzymes stayed stable or got slightly better, he could probably be discharged to home. We started an initial workup to find out why he had the acute hepatitis, and we presume it is acute a lcoholic hepatitis. Hep C is negative. CT and ultrasound show severe steatohepatitis. I have expla ined to him that he cannot drink any alcohol at all, not even in cough medicine. No low alcohol beer . No vodka, whiskey, wine, etc. He had quite a bit of discomfort. His belly is quite large, protuberant and distended. Tender diffu sely, but normal bowel sounds. Because of his pain, he wanted to be discharged on opiates, and we di d give him oxycodone, 30 tablets. I explained that if he wants any more pain medicine, he would have to ask his primary care provider. As for the rash in his lower abdomen, he does have a probable fungal rash with punctate white patches over his testicles, perineum, and inner thighs that is superimposed over a thickened, red and swolle n, red skin that extends from the lower pannus into his intertriginous folds, into the testicles, per ineum, into around the anus. There is no necrotizing fasciitis without any fluctuance, tenderness. Just diffusely uncomfortable like "I scalded myself." That was treated with nystatin cream and powde r and IV antibiotics. He was transitioned to amoxicillin for perineal cellulitis in the outpatient s etting. He did receive a banana bag while here. He is encouraged to start a vitamin or at least vit pickard with B12 and folate in the outpatient setting. He is now discharged in stable condition, improved from last night, but still uncomfortable. Liver e nzymes are improved in that AST was 311, is now 227. ALT was 67, now down to 54. Dr. Raad enriquezd that she is not surprised about the bilirubin lagging. He was admitted at 9.6, now at 9.9. Iron was 75, TIBC 193, percent saturation 39, transferrin 138. Mild hyponatremia and hypokalemia noted. Sodium is 131, potassium 3.7. On discharge, his exam is 36.9, pulse 96, respirations 18, blood pressure 129/85, O2 sat 95% on room air. At discharge, his is in the room with two of his young children. They are delightful kids . He is fearful and anxious about going home because he does know what would happen if his liver got worse. He asked for signs and symptoms of what would happen if his liver got worse. I have explain ed to him at length that he could possibly recover from this, but will need to be on a strict low pro tein, low sodium diet. Nutrition Services is providing him with a low protein diet. PHYSICAL EXAMINATION: GENERAL: He is a large, morbidly obese white male. LUNGS: Diminished breath sounds at the bases, but clear, without tachypnea or respiratory distress. HEART: PMI is distant cardiac tones with a regular rate and rhythm, and no murmurs, rubs, or gallops . ABDOMEN: His abdomen is hugely protuberant, firm musculature, hypoactive bowel sounds, diffusely, bu t tender over right upper quadrant and right mid abdomen. No rebound or guarding. EXTREMITIES: The legs have trace edema; they are quite large because of his overall weight and body habitus. VITAL SIGNS: He is discharged at 117 kilograms, 5 feet, 8 inches tall. I have asked him to follow up with his primary care provider, Mona Poole. She will follow up wit h weight loss, counseling for alcohol abuse. His past medical history may need to be corrected as we ll, since it states that he had hepatitis C, treated in 2007, or will need verification where he got that diagnosis. TD: 04/05/2018 14:33
== END 2018-04-04 13:30 | disposition home or self-care (01) ==
LOC: ED 15:22 → OBS 18:40
PROVIDERS: ADMIT Specialist; ATTEND Specialist
DX: K70.11 Alcoholic hepatitis with ascites (principal); F10.10 Alcohol abuse, uncomplicated; Z86.19 Personal history of other infectious and parasitic diseases; L03.315 Cellulitis of perineum; E66.01 Morbid (severe) obesity due to excess calories; E87.1 Hypo-osmolality and hyponatremia; E87.6 Hypokalemia; F17.210 Nicotine dependence, cigarettes, uncomplicated; Z68.39 Body mass index [BMI] 39.0-39.9, adult; D72.829 Elevated white blood cell count, unspecified; R39.198 Other difficulties with micturition; K21.9 Gastro-esophageal reflux disease without esophagitis; F41.9 Anxiety disorder, unspecified; R19.4 Change in bowel habit; J45.909 Unspecified asthma, uncomplicated
CPT/HCPCS: 36415; 74177; 76705; 80053; 80074; 80306; 81001; 82390; 83540; 83690; 84466; 85025; 85610; 85730; 87086; 94640; 96361; 96365; 96367; 96375; 96376; 99283; 99284; A9270; G0378; J3411; Q9967; 81003

== ENCOUNTER 2018-05-18 08:11 | Outpatient (CLI) | payer MEDICAID | END 2018-05-18 08:12 | disposition short-term general hospital (02) | LOC: EMS 08:11 | PROVIDERS: ATTEND Surgery | DX: R10.9 Unspecified abdominal pain (principal) ==

== ENCOUNTER 2018-06-14 15:13 | Inpatient (IN) | payer MEDICAID ==
[2018-06-14] MEDS ORDERED: SODIUM CHLORIDE 0.9% 1,000 ML IV ONE ×2 (16:08→17:19)
[2018-06-14] MEDS ORDERED: AMPICILLIN/SULBACTAM 3 GM in SODIUM CHLORIDE 0.9% MINIBAG 100 ML IV STA (16:08)
[2018-06-14] MEDS ORDERED: CLINDAMYCIN 600 MG/50 ML 50 ML IV ONE (16:08)
--- NOTE | 2018-06-14 16:09 | ED Physician Documentation ---
History of Present Illness - Stated complaint Stated Complaint: SNET BY - Chief complaint Chief Complaint: General - Additonal information Additional information: 33-year-old male presents the emergency department with increasing leg redness, swelling and drainage. The patient has a history of chronic leg edema and recently has had increased redness, wound drainage and pain. The patient was sent by primary care for further evaluation. The patient denies any fevers or recent trauma. No relieving factors. Symptoms are described as severe Review of Systems Constitutional: reports: Fatigue. denies: Fever Eyes: denies: Decreased vision Ears: denies: Ear pain Nose: denies: Congestion Throat: denies: Sore throat Cardiac: reports: Pedal edema. denies: Chest pain / pressure Respiratory: denies: Cough GI: denies: Abdominal Pain : denies: Dysuria Skin: reports: Lesions Musculoskeletal: reports: Extremity swelling. denies: Back pain Neurologic: denies: Generalized weakness, Focal weakness PD PAST MEDICAL HISTORY - Past Medical History Past Medical History: Yes Cardiovascular: None Respiratory: Asthma Neuro: None Endocrine/Autoimmune: None GI: GERD, Hemorrhoids, Hepatitis : None HEENT: None Psych: Anxiety, Other Musculoskeletal: Fatigue, Other Derm: None - Past Surgical History Past Surgical History: Yes Ortho: Other - Present Medications Home Medications: Ambulatory Orders Medication Instructions Recorded Confirmed Amoxicillin 500 mg PO TID #21 capsule 04/04/18 Ibuprofen 200 mg PO Q6H PRN 04/04/18 04/04/18 Ibuprofen [Motrin] 400 mg PO Q4HR PRN tablet 04/04/18 Multivitamin [Multivitamins] 1 tab PO DAILY 04/04/18 04/04/18 Nystatin 1 each PO BID #1 bottle 04/04/18 Nystatin Cream [Mycostatin Cream] 1 gm TOP BID #45 tube 04/04/18 Omeprazole 20 mg PO DAILY PRN 04/04/18 04/04/18 oxyCODONE [Roxicodone] 5 mg PO Q4HR PRN #30 tablet 04/04/18 - Allergies Allergies/Adverse Reactions: Allergies Allergy/AdvReac Type Severity Reaction Status Date / Time acetaminophen Allergy Unknown Verified 06/14/18 15:51 NSAIDS (Non-Steroidal Allergy Unknown Verified 06/14/18 15:51 Anti-Inflamma - Social History Does the pt smoke?: Yes Smoking Status: Current every day smoker Does the pt drink ETOH?: Yes Does the pt have substance abuse?: Yes - Immunizations Immunizations are current?: No - POLST Patient has POLST: No PD ED PE NORMAL - General General: Alert and oriented X 3 - HEENT HEENT: Atraumatic, PERRL, EOMI, Ears normal - Cardiac Cardiac: RRR (Tachycardia), Strong equal pulses - Respiratory Respiratory: No respiratory distress, Clear bilaterally - Abdomen Abdomen: Soft, Non tender - Derm Derm: Other (The patient has acute cellulitis of bilateral lower extremities) - Extremities Extremities: Other (The patient has bilateral leg swelling, the patient has bilateral chronic skin changes, there is bilateral chronic ulcerations with oozing and acute superimposed cellulitis. Normal dorsalis pedis pulse) - Neuro Neuro: Alert and oriented X 3, Normal speech - Psych Psych: Normal affect Results - Vitals Vitals: Vital Signs - 24 hr 06/14/18 06/14/18 15:36 15:51 Temperature 37.1 C Heart Rate 105 H 103 H Respiratory 20 16 Rate Blood Pressure 157/82 H 157/82 H O2 Saturation 97 98 Oxygen O2 Source Room air - Labs Labs: Laboratory Tests 06/14/18 06/14/18 06/14/18 16:23 16:23 16:23 WBC 13.9 H RBC 3.85 L Hgb 12.2 L Hct 35.9 L MCV 93.2 MCH 31.6 H MCHC 33.9 RDW 14.1 Plt Count 157 MPV 7.6 Neut # (Auto) 10.7 H Lymph # (Auto) 1.7 [place] # (Auto) 1.1 H Eos # (Auto) 0.3 Baso # (Auto) 0.1 Absolute Nucleated RBC 0.01 Band Neuts % (Manual) Not Reportable Abnorm Lymph % (Manual) Not Reportable Nucleated RBC % 0.0 Neutrophils # (Manual) Not Reportable Lymphocytes # (Manual) Not Reportable Monocytes # (Manual) Not Reportable Eosinophils # (Manual) Not Reportable Basophils # (Manual) Not Reportable Differential Comment MANUAL=AUTO DIFF Manual Slide Review Indicated Platelet Estimate NORMAL (130-450,000) Platelet Morphology NORMAL APPEARANCE RBC Morph Micro Appear NORMAL APPEARANCE PT 15.8 H INR 1.4 H Sodium 134 L Potassium 3.6 Chloride 97 L Carbon Dioxide 26 Anion Gap 11.0 BUN 21 H Creatinine 1.1 Estimated GFR (MDRD) 76 L Glucose 141 H Lactic Acid Calcium 8.9 Total Bilirubin 2.3 H AST 81 H ALT 63 H Alkaline Phosphatase 171 H Total Creatine Kinase 76 Total Protein 6.8 Albumin 3.0 L Globulin 3.8 Albumin/Globulin Ratio 0.8 L Lipase 43 06/14/18 16:23 WBC RBC Hgb Hct MCV MCH MCHC RDW Plt Count MPV Neut # (Auto) Lymph # (Auto) [place] # (Auto) Eos # (Auto) Baso # (Auto) Absolute Nucleated RBC Band Neuts % (Manual) Abnorm Lymph % (Manual) Nucleated RBC % Neutrophils # (Manual) Lymphocytes # (Manual) Monocytes # (Manual) Eosinophils # (Manual) Basophils # (Manual) Differential Comment Manual Slide Review Platelet Estimate Platelet Morphology RBC Morph Micro Appear PT INR Sodium Potassium Chloride Carbon Dioxide Anion Gap BUN Creatinine Estimated GFR (MDRD) Glucose Lactic Acid 2.5 H Calcium Total Bilirubin AST ALT Alkaline Phosphatase Total Creatine Kinase Total Protein Albumin Globulin Albumin/Globulin Ratio Lipase - Rads (name of study) US duplex Radiology: Final report received, See rad report PD MEDICAL DECISION MAKING - ED course ED course: The patient has an acute bilateral lower leg cellulitis and will require adm ission to the hospital for further management of his acute symptoms. The findings and plan were discussed with the patient who understands and agrees. The case was discussed with the hospitalist Dr. Gonzalez who accepts the patient onto her service Departure - Departure Disposition: [facility] DC/Xfer Clinical Impression: Cellulitis Qualifiers: Site of cellulitis: other site Qualified Code(s): L03.818 - Cellulitis of other sites
[2018-06-14 16:30] LABS: BASOPHILS # (AUTO) 0.1 10^3/uL (0.0-0.1); BASOPHILS % (AUTO) 0.7 %; EOSINOPHILS # (AUTO) 0.3 10^3/uL (0.0-0.7); EOSINOPHILS % (AUTO) 1.9 %; HGB - HEMOGLOBIN 12.2 g/dL (14.0-18.0); LYMPHOCYTES # (AUTO) 1.7 10^3/uL (1.5-3.5); LYMPHOCYTES % (AUTO) 12.1 %; MEAN CORPUSCULAR HEMOGLOBIN 31.6 pg (27.0-31.0); MEAN CORPUSCULAR HGB CONC 33.9 g/dL (32.0-36.0); MEAN CORPUSCULAR VOLUME 93.2 fL (80.0-94.0); MEAN PLATELET VOLUME 7.6 fL (7.4-11.4); MONOCYTES # (AUTO) 1.1 10^3/uL (0.0-1.0); MONOCYTES % (AUTO) 8.1 %; NEUTROPHILS # (AUTO) 10.7 10^3/uL (1.5-6.6); NEUTROPHILS % (AUTO) 77.2 %; PLT - PLATELET COUNT 157 10^3/uL (130-450); RED BLOOD COUNT 3.85 10^6/uL (4.70-6.10); RED CELL DISTRIBUTION WIDTH 14.1 % (12.0-15.0); WHITE BLOOD COUNT 13.9 x10^3/uL (4.8-10.8)
[2018-06-14 16:45] LABS: ALBUMIN/GLOBULIN RATIO 0.8 (1.0-2.2); BILIRUBIN,TOTAL 2.3 mg/dL (0.2-1.0); CALCIUM 8.9 mg/dL (8.5-10.3); CREATININE 1.1 mg/dL (0.6-1.2); TOTAL PROTEIN 6.8 g/dL (6.7-8.2)
[2018-06-14 16:53] LABS: INR 1.4 (0.8-1.2); PT - PROTHROMBIN TIME 15.8 secs (9.9-12.6)
[2018-06-14 17:06] LABS: DIFFERENTIAL COMMENT MANUAL=AUTO DIFF; PLATELET ESTIMATE, MANUAL NORMAL (130-450,000) (NORMAL); PLATELET MORPHOLOGY NORMAL APPEARANCE (NORMAL); RBC MORPHOLOGY (MULTIPLE) NORMAL APPEARANCE (NORMAL)
[2018-06-14] MEDS ORDERED: oxyCODONE 5 MG TABLET PO PRN ×2 (17:31→18:19)
[2018-06-14] MEDS ORDERED: ONDANSETRON 4 MG/2 ML VIAL IVP PRN (17:31)
--- NOTE | 2018-06-14 17:58 | Ultrasound Report ---
Reason: b/l leg swelling Procedure Date: 06/14/2018 Accession Number: [id number] / [id number] Procedure: US - Duplex Ext Veins Bilateral CPT Code: FULL RESULT: EXAM: BILATERAL LOWER EXTREMITY VENOUS ULTRASOUND EXAM DATE: 06/14/2018 04:36 PM. CLINICAL HISTORY: Bilateral leg swelling. Possible DVT. COMPARISON: None. TECHNIQUE: Real-time sonographic vascular imaging was performed by the patient advocate through the lower extremities utilizing both color-flow and Doppler spectral analysis. Multiple employee's representative static images were saved for review. FINDINGS: Right: Common Femoral Vein (CFV): Normal. CFV-GSV Junction: Normal. Profunda Femoral Vein (PFV): Normal. Femoral Vein (FV) Prox: Normal. Femoral Vein (FV) Mid: Normal. Femoral Vein (FV) Dist: Normal. Popliteal Vein: Normal. Posterior Tibial Veins: Normal. Technically limited visibility. Peroneal Veins: Normal. Technically limited visibility. Left: Common Femoral Vein (CFV): Normal. CFV-GSV Junction: Normal. Profunda Femoral Vein (PFV): Normal. Femoral Vein (FV) Prox: Normal. Femoral Vein (FV) Mid: Normal. Femoral Vein (FV) Dist: Normal. Popliteal Vein: Normal. Posterior Tibial Veins: Normal. Technically limited visibility. Peroneal Veins: Normal. Technically limited visibility. Other: No Ramírez cyst. IMPRESSION: 1. No DVT demonstrated in either lower extremity. [facility]
--- NOTE | 2018-06-14 18:01 | HISTORY & PHYSICAL EXAMINATION ---
Chief Complaint - Chief Complaint Chief Complaint: BLE swelling History of Present Illness - Admitted From Admitted From:: [facility] ER - History Obtained From Records Reviewed: Yes History obtained from: Patient and EMR - History of Present Illness HPI Comment/Other: Timmy Castañeda is a 33 year old male who is a poor historian of his health con diNSC. His was present earlier in the ER, but has since left to go to work. He has a PMH significant for alcoholic hepatitis, h/o alcohol abuse, ?history of cirrhosis given the medications he is currently taking. Of note, he was admitted to [facility] 04/03/2018 for acute alcoholic hepa titis. In addition, the patient reports he was recently hospitalized at [facility], but he is unable to tell me why he was admitted, but he knows that it was not related to the problem he is presenting with today. The patient presented to his PCP today with complaints of lower leg edema, erythema and increased pain. His PCP advised him to be evaluated in the ER. He reports he has had bilateral lower extremity edema for the last 3 months. He reports his bilateral lower legs are 'leaking bilirubin' and cannot tell me when the weeping started. 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 He states the redness has been present for the last month and over the last week and a half the redness and pain has increased. He states walking across the room takes his 5x longer than the average person due to the pain. He describes the pain as burning, stabbing, and 'everything in between all at once'. The pain is present at rest and with movement. At home, he is on oxycontin and oxycodone and reports these are not controlling his pain currently. He also endorses swelling in his mouth, difficulty taking deep breaths, and new reddened areas on the palms of his hands with edema of his hands. He denies any new medications, recollections of being bit, or hitting them on anything. He denies CP, N/V/D or dizziness. He presents with sepsis (HR 105, WBC 13.9) with suspected source of infection BLE and lactic acid 2.5. He received IVF, clindamycin and unasyn in the ER. Bilateral duplex negative for DVT. He is being admitted to the hospital for treatment of his BLE cellulitis. Patient wishes to be a full code. History - Past Medical History Cardiovascular: reports: None Respiratory: reports: Asthma Neuro: reports: None Endocrine/Autoimmune: reports: None GI: reports: GERD, Hemorrhoids, Hepatitis : reports: None HEENT: reports: None Psych: reports: Anxiety, Other Musculoskeletal: reports: Fatigue, Other Derm: reports: None MRSA Hx?: No - Past Surgical History Ortho: reports: Other - Family & Social History Family History Comment/Other: Mother is alive and well and healthy with no major medical issues In her mid 70s. Dad is alive and well with no major medical issues In his mid 70s. He is 1 of 5 siblings. Sister has sarcoidosis. One brother of alcoholic liver disease. 3 children are healthy with no major medical illnesses. Has been for 4 years. Living arrangement: At home Living Situation: With family Social History Notes: Stopped smoking Mar 2018. He reports he no longer drinks alcohol and quit earlier this year. Denies marijuana use. 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 - Substance History Use: Uses substance without health or social issues: NONE - POLST Patient has POLST: No Meds/Allgy - Home Medications Home Medications: Ambulatory Orders Medication Instructions Recorded Confirmed Amoxicillin 500 mg PO TID #21 capsule 04/04/18 Ibuprofen 200 mg PO Q6H PRN 04/04/18 04/04/18 Ibuprofen [Motrin] 400 mg PO Q4HR PRN tablet 04/04/18 Multivitamin [Multivitamins] 1 tab PO DAILY 04/04/18 04/04/18 Nystatin 1 each PO BID #1 bottle 04/04/18 Nystatin Cream [Mycostatin Cream] 1 gm TOP BID #45 tube 04/04/18 Omeprazole 20 mg PO DAILY PRN 04/04/18 04/04/18 oxyCODONE [Roxicodone] 5 mg PO Q4HR PRN #30 tablet 04/04/18 - Allergies Allergies/Adverse Reactions: Allergies Allergy/AdvReac Type Severity Reaction Status Date / Time acetaminophen Allergy Unknown Verified 06/14/18 15:51 NSAIDS (Non-Steroidal Allergy Unknown Verified 06/14/18 15:51 Anti-Inflamma Review of Systems - Constitutional Constitutional: reports: Fever, Chills. denies: Diaphoresis - Ears, Nose & Throat Ears, Nose & Throat: reports: Sore throat - Cardiovascular Cariovascular: reports: Palpitations. denies: Chest pain - Respiratory Respiratory: reports: Cough. denies: Wheezing - Gastrointestinal Gastrointestinal: reports: Abdominal pain. denies: Diarrhea, Nausea, Vomiting - Genitourinary Genitourinary: denies: Dysuria, Frequency, Urgency - Musculoskeletal Musculoskeletal: reports: Back pain. denies: Muscle aches - Integumentary Integumentary: reports: Pruritis, Lesions, Pigment changes, Other (lower extremities have been edematous for many months, erythema started last month, and became worse over the last week and a half) - Neurological Neurological: reports: General weakness, Other (decreased sensation in BLE,) - Psychiatric Psychiatric: denies: Depression, Anxiety - All Other Systems All Other Systems: reports: Reviewed and negative Prior Level of Functionality: Ambulates with a walker and cane at home. Able to complete ADLs. Exam - Vital Signs Reviewed Vital Signs: Yes Vital Signs: Vital Signs x48h Temp Pulse Resp BP Pulse Ox 06/14/18 15:51 103 H 16 157/82 H 98 06/14/18 15:36 37.1 C 105 H 20 157/82 H 97 Vital Signs - 24 hr 06/14/18 06/14/18 15:36 15:51 Temperature 37.1 C Heart Rate 105 H 103 H Respiratory 20 16 Rate Blood Pressure 157/82 H 157/82 H O2 Saturation 97 98 - Physical Exam General Appearance: positive: No acute distress, Alert, Other (sitting up on the edge of the bed, able to talk in full sentences on room air.) Eyes Bilateral: positive: Normal inspection, PERRL, EOMI ENT: positive: ENT inspection nml, Pharynx nml, No signs of dehydration Neck: positive: Nml inspection, Trachea midline Respiratory: positive: Chest non-tender, No respiratory distress, Breath sounds nml. negative: Wheezes, Rales Cardiovascular: positive: Regular rate & rhythm, No murmur, No gallop, Tachycardia Peripheral Pulses: positive: 1+ Abdomen: positive: Non-tender, No organomegaly, Nml bowel sounds Skin: positive: Warm, Dry, Other (bilateral lower extremity cellulitis.) Sepsis Event Note (H) - Evaluation Current Stage of Sepsis: Sepsis Possible source of Sepsis: positive: Skin/soft tissue - Sepsis Criteria Sepsis Criteria: Recorded Heart Rate greater than 90 bpm, WBC count greater than 12,000 or less than 4000, Metabolic: lactate > 2 mmol/L Conclusion/Plan - Problem List (1) Sepsis Conclusion/Plan: Patient with tachycardia, elevated white blood cell count with suspected source of infection being his BLE cellulitis with a lactic acid of 2.5. He was given IVF, clindamycin and unasyn in the ER. Plan: - admit to inpatient - telemetry - obtain lactic acid at 2300 - given patient's previous hospitalizations this year will start empiric antibiotic therapy with vancomycin and zosyn - follow-up labs in the AM Qualifiers: Sepsis type: sepsis due to unspecified organism Qualified Code(s): A41.9 - Sepsis, unspecified organism (2) Cellulitis Conclusion/Plan: Bilateral lower extremity. Erythema has been present for the last month, increasing with open sores in at least the last week and a half. Patient denies taking any antibiotics specifically related to his lower extremities recently. Plan: - as per above - place wound care consult Qualifiers: Site of cellulitis: extremity Site of cellulitis of extremity: lower extremity Laterality: unspecified laterality Qualified Code(s): L03.119 - Cellulitis of unspecified part of limb (3) H/O cirrhosis Conclusion/Plan: Questionable history. Will continue home medications of lasix, spironolactone, lactulose - Lab Results Lab results reviewed: Yes Fish Bones: 06/14/18 16:23 06/14/18 16:23 - Diagnostic Imaging Results Diagnostic Imaging Results: positive: Final report reviewed Core Measures - Anticipated LOS I expect patient to be DC'd or transferred within 96 hours.: Yes - DVT/VTE - Prophylaxis VTE/DVT Device ordered at admit?: Yes
[2018-06-14] MEDS ORDERED: methylPREDNISolone SUCCINATE 125 MG/2 ML VIAL IVP SCH (19:00)
[2018-06-14] MEDS ORDERED: VANCOMYCIN INJ 2.5 GM in SODIUM CHLORIDE 0.9% 500 ML IV STA (19:14)
[2018-06-14] MEDS: oxyCODONE 5 MG TABLET PO PRN (19:14)
[2018-06-14] MEDS: SODIUM CHLORIDE FLUSH 0.9% 10 ML SYRINGE IVP SCH ×2 (19:16→23:55)
[2018-06-14] MEDS ORDERED: ceFAZolin 1 GM in SODIUM CHLORIDE 0.9% MINIBAG 100 ML IV SCH (20:00)
[2018-06-14] MEDS: oxyCODONE ER 10 MG TABLET PO SCH (20:23)
[2018-06-14] MEDS: LACTULOSE 10 GM/15 ML BOTTLE PO SCH (20:23)
[2018-06-14] MEDS: rifAXIMin 550 MG TABLET PO SCH (20:23)
[2018-06-14] MEDS ORDERED: VANCOMYCIN INJ 2 GM in SODIUM CHLORIDE 0.9% 500 ML IV SCH (21:00)
[2018-06-14] MEDS: PIPERACILLIN/TAZOBACTAM 3.375 GM in SODIUM CHLORIDE 0.9% MINIBAG 100 ML IV SCH (22:32)
[2018-06-14] MEDS: NYSTATIN POWDER 15 GM TOP SCH (23:39)
[2018-06-15] MEDS: ALBUTEROL NEB 2.5 MG/3 ML INH PRN (00:17)
[2018-06-15] MEDS: oxyCODONE 5 MG TABLET PO PRN ×2 (02:47→20:03)
[2018-06-15] MEDS: LACTULOSE 10 GM/15 ML BOTTLE PO SCH ×3 (06:39→21:22)
[2018-06-15] MEDS: SODIUM CHLORIDE FLUSH 0.9% 10 ML SYRINGE IVP PRN (06:40)
[2018-06-15] MEDS: PIPERACILLIN/TAZOBACTAM 3.375 GM in SODIUM CHLORIDE 0.9% MINIBAG 100 ML IV SCH ×3 (06:40→21:22)
[2018-06-15 07:00] LABS: ALBUMIN 2.9 g/dL (3.2-5.5); ALBUMIN/GLOBULIN RATIO 0.7 (1.0-2.2); BILIRUBIN,TOTAL 2.7 mg/dL (0.2-1.0); CALCIUM 8.7 mg/dL (8.5-10.3); CREATININE 1.2 mg/dL (0.6-1.2); TOTAL PROTEIN 6.8 g/dL (6.7-8.2)
[2018-06-15] MEDS ORDERED: SODIUM CHLORIDE 0.9% 1,000 ML IV ONE (07:38)
[2018-06-15 08:02] LABS: BASOPHILS % (AUTO) 0.6 %; HGB - HEMOGLOBIN 12.7 g/dL (14.0-18.0); LYMPHOCYTES % (AUTO) 4.7 %; MEAN CORPUSCULAR HEMOGLOBIN 32.1 pg (27.0-31.0); MEAN CORPUSCULAR HGB CONC 34.4 g/dL (32.0-36.0); MEAN CORPUSCULAR VOLUME 93.5 fL (80.0-94.0); MEAN PLATELET VOLUME 7.8 fL (7.4-11.4); MONOCYTES % (AUTO) 2.4 %; NEUTROPHILS % (AUTO) 92.3 %; PLT - PLATELET COUNT 152 10^3/uL (130-450); RED BLOOD COUNT 3.94 10^6/uL (4.70-6.10); RED CELL DISTRIBUTION WIDTH 14.7 % (12.0-15.0); WHITE BLOOD COUNT 13.8 x10^3/uL (4.8-10.8)
--- NOTE | 2018-06-15 08:12 | PROVIDER PROGRESS NOTE ---
Subjective - Prog Note Date Prog Note Date: 06/15/18 Prog Note Time: 08:00 - Subjective Subjective: Patient able to get some sleep last night Continues to report pain in lower extremities Lactic acid remains elevated WBC still 13, HR low 100s Current Medications - Current Medications Current Medications: Albuterol () 2.5 mg INH RTQ4H PRN PRN Reason: Wheezing Last Admin: 06/15/18 00:17 Dose: 2.5 mg Albuterol/Ipratropium (Duoneb) 3 ml INH RTQID PRN PRN Reason: Shortness of Air/Wheezing Enoxaparin Sodium (Lovenox) 40 mg SUBQ DAILY [facility] Last Admin: 06/15/18 08:20 Dose: 40 mg Furosemide (Lasix) 20 mg PO DAILY [facility] Last Admin: 06/15/18 08:20 Dose: 20 mg Hydromorphone HCl (Dilaudid Inj Carp) 1 mg IVP Q4H PRN PRN Reason: PAIN Last Admin: 06/15/18 09:43 Dose: 1 mg Piperacillin Sod/Tazobactam (Sod 3.375 gm/ Sodium Chloride) 100 mls @ 200 mls/hr IV Q8HR [facility] Last Infusion: 06/15/18 07:15 Dose: Infused Vancomycin HCl 1.75 gm/ Sodium (Chloride) 500 mls @ 250 mls/hr IV Q12H [facility] Last Admin: 06/15/18 10:53 Dose: 250 mls/hr Lactulose (Lactulose) 30 gm PO TID [facility] Last Admin: 06/15/18 06:39 Dose: 30 gm Magnesium Oxide (Mag Ox) 400 mg PO DAILYWM [facility] Last Admin: 06/15/18 08:20 Dose: 400 mg Nicotine (Nicoderm) 1 patch TOP DAILY [facility] Last Admin: 06/15/18 11:06 Dose: 1 patch Nystatin (Nystop) 1 applic TOP TID [facility] Last Admin: 06/15/18 08:21 Dose: 1 applic Ondansetron HCl (Zofran Inj) 4 mg IVP Q6HR PRN PRN Reason: Nausea / Vomiting Oxycodone HCl (Roxicodone) 10 mg PO Q8HR PRN PRN Reason: Pain 5 to 7 Last Admin: 06/15/18 02:47 Dose: 10 mg Oxycodone HCl (Oxycontin) 10 mg PO DAILY [facility] Last Admin: 06/15/18 08:20 Dose: 10 mg Polyethylene Glycol (Miralax) 17 gm PO DAILY [facility] Last Admin: 06/15/18 09:29 Dose: Not Given Potassium Chloride (Micro-K) 10 meq PO DAILYWM [facility] Last Admin: 06/15/18 08:20 Dose: 10 meq Rifaximin (Xifaxan) 550 mg PO BID [facility] Last Admin: 06/15/18 08:20 Dose: 550 mg Sodium Chloride (Normal Saline Flush 0.9%) 10 ml IVP PRN PRN PRN Reason: NEEDED PER PROVIDER ORDERS Last Admin: 06/15/18 06:40 Dose: 10 ml Sodium Chloride (Normal Saline Flush 0.9%) 10 ml IVP 0100,0900,1700 [facility] Last Admin: 06/15/18 08:21 Dose: Not Given Spironolactone (Aldactone) 50 mg PO DAILY [facility] Last Admin: 06/15/18 08:20 Dose: 50 mg Objective - Vital Signs/Intake & Output Reviewed Vital Signs: Yes Vital Signs: Vital Signs x48h Temp Pulse Pulse Resp BP BP Pulse Ox 06/15/18 08:02 36.7 C 103 H 20 123/66 95 06/15/18 03:26 36.6 C 108 H 22 113/57 L 96 06/15/18 00:18 122 H 18 Intake & Output: Intake & Output 06/12/18 06/13/18 06/14/18 06/15/18 23:59 23:59 23:59 23:59 Intake Total 1950 850 Balance 1950 850 - Objective Comments/Other: General Appearance: positive: No acute distress, Alert, Other (sitting up in the chair eating breakfast) Eyes Bilateral: positive: Normal inspection, PERRL, EOMI ENT: positive: ENT inspection nml, Pharynx nml, No signs of dehydration Neck: positive: Nml inspection, Trachea midline Respiratory: positive: Chest non-tender, No respiratory distress, Breath sounds nml. negative: Wheezes, Rales Cardiovascular: positive: Regular rate & rhythm, No murmur, No gallop, Tachycardia Peripheral Pulses: positive: 1+ Abdomen: positive: Non-tender,Nml bowel sounds Skin: positive: Warm, Dry, Other (bilateral lower extremity erythema has improved in the right leg. Continues to have weeping open areas of skin on both lower legs) - Lab Results Fish Bones: 06/15/18 06:40 06/15/18 06:40 Other Labs: Lab Results x24hrs 06/15/18 06/14/18 06/14/18 Range/Units 06:40 23:00 16:23 WBC (4.8-10.8) x10^3/uL RBC (4.70-6.10) 10^6/uL Hgb (14.0-18.0) g/dL Hct (42.0-52.0) % MCV (80.0-94.0) fL MCH (27.0-31.0) pg MCHC (32.0-36.0) g/dL RDW (12.0-15.0) % Plt Count (130-450) 10^3/uL MPV (7.4-11.4) fL Neut # (Auto) (1.5-6.6) 10^3/uL Lymph # (Auto) (1.5-3.5) 10^3/uL [place] # (Auto) (0.0-1.0) 10^3/uL Eos # (Auto) (0.0-0.7) 10^3/uL Baso # (Auto) (0.0-0.1) 10^3/uL Absolute Nucleated RBC x10^3/uL Band Neuts % (Manual) Abnorm Lymph % (Manual) Nucleated RBC % /100WBC Neutrophils # (Manual) Lymphocytes # (Manual) Monocytes # (Manual) Eosinophils # (Manual) Basophils # (Manual) Differential Comment Manual Slide Review Platelet Estimate (NORMAL) Platelet Morphology (NORMAL) RBC Morph Micro Appear (NORMAL) PT (9.9-12.6) secs INR (0.8-1.2) Sodium 131 L (135-145) mmol/L Potassium 3.9 (3.5-5.0) mmol/L Chloride 97 L (101-111) mmol/L Carbon Dioxide 22 (21-32) mmol/L Anion Gap 12.0 (6-13) BUN 19 (6-20) mg/dL Creatinine 1.2 (0.6-1.2) mg/dL Estimated GFR (MDRD) 69 L (>89) Glucose 292 H (70-100) mg/dL Lactic Acid 2.3 H 2.5 H (0.5-2.2) mmol/L Calcium 8.7 (8.5-10.3) mg/dL Total Bilirubin 2.7 H (0.2-1.0) mg/dL AST 75 H (10-42) IU/L ALT 59 (10-60) IU/L Alkaline Phosphatase 163 H (42-121) IU/L Total Creatine Kinase (22-269) IU/L Total Protein 6.8 (6.7-8.2) g/dL Albumin 2.9 L (3.2-5.5) g/dL Globulin 3.9 (2.1-4.2) g/dL Albumin/Globulin Ratio 0.7 L (1.0-2.2) Lipase (22-51) U/L 06/14/18 06/14/18 06/14/18 Range/Units 16:23 16:23 16:23 WBC 13.9 H (4.8-10.8) x10^3/uL RBC 3.85 L (4.70-6.10) 10^6/uL Hgb 12.2 L (14.0-18.0) g/dL Hct 35.9 L (42.0-52.0) % MCV 93.2 (80.0-94.0) fL MCH 31.6 H (27.0-31.0) pg MCHC 33.9 (32.0-36.0) g/dL RDW 14.1 (12.0-15.0) % Plt Count 157 (130-450) 10^3/uL MPV 7.6 (7.4-11.4) fL Neut # (Auto) 10.7 H (1.5-6.6) 10^3/uL Lymph # (Auto) 1.7 (1.5-3.5) 10^3/uL [place] # (Auto) 1.1 H (0.0-1.0) 10^3/uL Eos # (Auto) 0.3 (0.0-0.7) 10^3/uL Baso # (Auto) 0.1 (0.0-0.1) 10^3/uL Absolute Nucleated RBC 0.01 x10^3/uL Band Neuts % (Manual) Not Reportable Abnorm Lymph % (Manual) Not Reportable Nucleated RBC % 0.0 /100WBC Neutrophils # (Manual) Not Reportable Lymphocytes # (Manual) Not Reportable Monocytes # (Manual) Not Reportable Eosinophils # (Manual) Not Reportable Basophils # (Manual) Not Reportable Differential Comment MANUAL=AUTO DIFF Manual Slide Review Indicated Platelet Estimate NORMAL (130-450,000) (NORMAL) Platelet Morphology NORMAL APPEARANCE (NORMAL) RBC Morph Micro Appear NORMAL APPEARANCE (NORMAL) PT 15.8 H (9.9-12.6) secs INR 1.4 H (0.8-1.2) Sodium 134 L (135-145) mmol/L Potassium 3.6 (3.5-5.0) mmol/L Chloride 97 L (101-111) mmol/L Carbon Dioxide 26 (21-32) mmol/L Anion Gap 11.0 (6-13) BUN 21 H (6-20) mg/dL Creatinine 1.1 (0.6-1.2) mg/dL Estimated GFR (MDRD) 76 L (>89) Glucose 141 H (70-100) mg/dL Lactic Acid (0.5-2.2) mmol/L Calcium 8.9 (8.5-10.3) mg/dL Total Bilirubin 2.3 H (0.2-1.0) mg/dL AST 81 H (10-42) IU/L ALT 63 H (10-60) IU/L Alkaline Phosphatase 171 H (42-121) IU/L Total Creatine Kinase 76 (22-269) IU/L Total Protein 6.8 (6.7-8.2) g/dL Albumin 3.0 L (3.2-5.5) g/dL Globulin 3.8 (2.1-4.2) g/dL Albumin/Globulin Ratio 0.8 L (1.0-2.2) Lipase 43 (22-51) U/L Assessment/Plan - Problem List (1) Sepsis Impression: Patient with tachycardia, elevated white blood cell count with suspected source of infection being his BLE cellulitis with a lactic acid of 2.5. He was given IVF (unsure amount), clindamycin and unasyn in the ER. Follow-up lactic acid 3.4. He continue to be tachycardic in the low 100s with elevated WBC. Plan: - continue telemetry - 1L IVF bolus - repeat lactic acid at noon - continue vanc and zosyn Qualifiers: Sepsis type: sepsis due to unspecified organism Qualified Code(s): A41.9 - Sepsis, unspecified organism (2) Cellulitis Impression: Bilateral lower extremity. Erythema has been present for the last month, increasing with open sores in at least the last week and a half. Patient denies taking any antibiotics specifically related to his lower extremities recently. The erythema on his RLE has improved. He was able to get sleep last night, although still reports pain. Plan: - as per above - PRN IVP dilaudid in addition to home narcotics - wound care consult has been placed Qualifiers: Site of cellulitis: extremity Site of cellulitis of extremity: lower extremity Laterality: unspecified laterality Qualified Code(s): L03.119 - Cellulitis of unspecified part of limb (3) H/O cirrhosis/liver failure Impression: Questionable history. Will continue home medications of lasix, spironolactone, lactulose (4) Tobacco Use Disorder Impression: Patient requesting nicotine patch Plan: - order nicotine patch Qualifiers: Sepsis type: sepsis due to unspecified organism Qualified Code(s): A41.9 - Sepsis, unspecified organism
[2018-06-15] MEDS: oxyCODONE ER 10 MG TABLET PO SCH (08:20)
[2018-06-15] MEDS: POTASSIUM CHLORIDE 10 MEQ CAPSULE PO SCH (08:20)
[2018-06-15] MEDS: MAGNESIUM OXIDE 400 MG TABLET PO SCH (08:20)
[2018-06-15] MEDS: SPIRONOLACTONE 25 MG TABLET PO SCH (08:20)
[2018-06-15] MEDS: ENOXAPARIN 40 MG/0.4 ML SYRINGE SUBQ SCH (08:20)
[2018-06-15] MEDS: rifAXIMin 550 MG TABLET PO SCH ×2 (08:20→21:21)
[2018-06-15] MEDS: FUROSEMIDE 20 MG TABLET PO SCH (08:20)
[2018-06-15] MEDS: SODIUM CHLORIDE FLUSH 0.9% 10 ML SYRINGE IVP SCH ×3 (08:21→23:39)
[2018-06-15] MEDS: NYSTATIN POWDER 15 GM TOP SCH ×3 (08:21→21:23)
[2018-06-15] MEDS ORDERED: VANCOMYCIN INJ 1.75 GM in SODIUM CHLORIDE 0.9% 500 ML IV SCH (09:00)
[2018-06-15 09:09] LABS: ABNORMAL LYMPHS % (MANUAL) 0 %
[2018-06-15 09:10] LABS: BAND NEUTROPHILS % (MANUAL) 1 %; LYMPHOCYTES # (MANUAL) 0.6 10^3/uL (1.5-3.5); LYMPHOCYTES % (MANUAL) 3 %; MONOCYTES # (MANUAL) 0.1 10^3/uL (0.0-1.0); MYELOCYTES % (MANUAL) 1 %; NEUTROPHILS % (MANUAL) 93 %; PLATELET ESTIMATE, MANUAL NORMAL (130-450,000) (NORMAL); PLATELET MORPHOLOGY 1+ LARGE PLATELETS (NORMAL); RBC MORPHOLOGY (MULTIPLE) 1+ POLYCHROMASIA (NORMAL)
[2018-06-15 09:11] LABS: DIFFERENTIAL COMMENT MANUAL DIFFERENTIAL
[2018-06-15] MEDS: POLYETHYLENE GLYCOL 3350 17 GM PACKET PO SCH (09:29)
[2018-06-15] MEDS: HYDROmorphone 1 MG/ML CARPUJECT IVP PRN ×3 (09:43→22:17)
[2018-06-15] MEDS: VANCOMYCIN INJ 1.75 GM in SODIUM CHLORIDE 0.9% 500 ML IV SCH ×2 (10:53→22:15)
[2018-06-15] MEDS ORDERED: VANCOMYCIN 1 GM VIAL ONE (10:54)
[2018-06-15] MEDS: NICOTINE 14 MG PATCH TOP SCH (11:06)
[2018-06-15] MEDS ORDERED: SODIUM CHLORIDE 0.9% 1,000 ML IV SCH (14:00)
[2018-06-15] MEDS ORDERED: HYDROmorphone 1 MG/ML CARPUJECT IVP STA (16:55)
--- NOTE | 2018-06-15 18:20 | Ultrasound Report ---
Reason: BLE cellulitis Procedure Date: 06/15/2018 Accession Number: [id number] / [id number] Procedure: US - Ankle Brachial Index CPT Code: FULL RESULT: EXAM: BILATERAL ANKLE/BRACHIAL INDEX EXAM DATE: 06/15/2018 04:56 PM. CLINICAL HISTORY: Bilateral lower extremity cellulitis. COMPARISON: None. TECHNIQUE: A blood pressure cuff and pulse volume recording Doppler ultrasound was used to evaluate the arterial pressures in the arms and ankle. No images were acquired. FINDINGS: Brachial pressure: Right brachial artery: 124/71 mmHg. Left brachial artery: 132/53 mmHg. Ankle pressures: Right ankle: 132/53 mmHg. Left ankle: 130/45 mmHg. IMPRESSION: 1. Right ankle/brachial index: 1.06. 2. Left ankle/brachial index: 1.05. ANKLE/BRACHIAL INDEX REFERENCE STANDARDS 1.0-1.4: Normal 0.90-0.99: Borderline < 0.9: Abnormal w RADIA
[2018-06-15] MEDS ORDERED: oxyCODONE ER 10 MG TABLET PO SCH (18:45)
[2018-06-15] MEDS: guaiFENesin 600 MG TABLET PO SCH (20:03)
--- NOTE | 2018-06-15 21:30 | MISCELLANEOUS PROVIDER NOTE ---
Miscellaneous Provider Note - - Note: Subjective: Patient able to get some sleep last night, Continues to report pain in lower extremities, Lactic acid remains elevated, WBC still 13, Remains tachycardic, Slightly hypertensive Objective: Vital signs hemodynamically stable afebrile, heart rate of 117 bpm, blood pressure 146/89, respiratory 18, 100% O2 saturation on room air General Appearance: positive: No acute distress, Alert, Cooperative Eyes Bilateral: positive: Normal inspection, PERRL, EOMI ENT: positive: ENT inspection nml, Pharynx nml, No signs of dehydration Neck: positive: Nml inspection, Trachea midline Respiratory: positive: Chest non-tender, No respiratory distress, Breath sounds nml. negative: Wheezes, Rales Cardiovascular: positive: Regular rate & rhythm, No murmur, No gallop, Tachycardia Peripheral Pulses: positive: 1+ Abdomen: positive: Non-tender,Nml bowel sounds Skin: positive: Warm, Dry, Other (bilateral lower extremity erythema has improved in the right leg. Continues to have weeping open areas of skin on both lower legs) Labs: Reviewed lactic acid trending reveals latest lactic acid of 3.2 Assessment 1. Sepsis 2. Bilateral lower extremity cellulitis with open sores 3. Alcohol liver cirrhosis 4. Obesity Plan: Patient to continue with vancomycin and Zosyn however patient continues to be tachycardic with trending lactic acid levels despite IV antibiotics and medical management received 1 L NS bolus, On telemetry and currently receiving medications for liver cirrhosis to include Aldactone and diuretics. Will institute nadolol as this would improve portal hypertension as well as improving tachycardia as it pertains to patient's sepsis. Wound care consultation has been ordered and patient will be followed by the service to see if they may add additional services to improve patients Cellulitis with open sores. Would monitor for underlying causes of sepsis to include bacteremia however the 2 sets of blood cultures are negative growth to date after 1 day. Continue with lactic acid trending. May need transfer to ICU, If patient develops hypotension change in mental status or WBC levels began to rise further, Organ dysfunction ensues or septic shock develops.
[2018-06-15] MEDS: NADOLOL 20 MG TABLET PO SCH (22:26)
[2018-06-16] MEDS: HYDROmorphone 1 MG/ML CARPUJECT IVP PRN ×4 (02:18→17:33)
[2018-06-16] MEDS: SODIUM CHLORIDE FLUSH 0.9% 10 ML SYRINGE IVP PRN ×2 (02:18→06:17)
[2018-06-16] MEDS: IPRATROPIUM/ALBUTEROL 3 ML NEB INH PRN ×2 (02:37→14:59)
[2018-06-16] MEDS ORDERED: MAG HYDROX/AL HYDROX/SIMETH 30 ML UDC PO PRN (03:10)
[2018-06-16] MEDS: oxyCODONE 5 MG TABLET PO PRN ×3 (05:20→22:28)
[2018-06-16] MEDS: ALBUTEROL NEB 2.5 MG/3 ML INH PRN (05:57)
[2018-06-16] MEDS: LACTULOSE 10 GM/15 ML BOTTLE PO SCH ×3 (06:11→21:19)
[2018-06-16] MEDS: PIPERACILLIN/TAZOBACTAM 3.375 GM in SODIUM CHLORIDE 0.9% MINIBAG 100 ML IV SCH ×3 (06:14→21:18)
[2018-06-16] MEDS: NYSTATIN POWDER 15 GM TOP SCH ×3 (06:17→21:18)
[2018-06-16 08:02] LABS: BASOPHILS % (AUTO) 0.4 %; EOSINOPHILS % (AUTO) 0.2 %; HGB - HEMOGLOBIN 11.8 g/dL (14.0-18.0); LYMPHOCYTES % (AUTO) 7.1 %; MEAN CORPUSCULAR HEMOGLOBIN 31.8 pg (27.0-31.0); MEAN CORPUSCULAR HGB CONC 33.8 g/dL (32.0-36.0); MEAN PLATELET VOLUME 7.5 fL (7.4-11.4); MONOCYTES % (AUTO) 8.6 %; NEUTROPHILS % (AUTO) 83.7 %; PLT - PLATELET COUNT 205 10^3/uL (130-450); RED BLOOD COUNT 3.72 10^6/uL (4.70-6.10); RED CELL DISTRIBUTION WIDTH 14.5 % (12.0-15.0); WHITE BLOOD COUNT 20.4 x10^3/uL (4.8-10.8)
[2018-06-16 08:02] LABS: ALBUMIN 2.9 g/dL (3.2-5.5); ALBUMIN/GLOBULIN RATIO 0.8 (1.0-2.2); BILIRUBIN,TOTAL 2.1 mg/dL (0.2-1.0); CALCIUM 8.6 mg/dL (8.5-10.3); CREATININE 0.8 mg/dL (0.6-1.2); TOTAL PROTEIN 6.4 g/dL (6.7-8.2)
--- NOTE | 2018-06-16 08:47 | XRAY Report ---
Reason: sob Procedure Date: 06/16/2018 Accession Number: [id number] / [id number] Procedure: XR - Chest 1 View X-Ray CPT Code: 48518 FULL RESULT: EXAM: CHEST RADIOGRAPHY EXAM DATE: 06/16/2018 08:35 AM. CLINICAL HISTORY: Sob. COMPARISON: CHEST 2 VIEW 04/07/2017 3:02 PM. TECHNIQUE: 1 view. FINDINGS: Lungs/Pleura: No focal opacities evident. No pleural effusion. No pneumothorax. Mediastinum: Within exam limitations, the cardiomediastinal contour is normal. Other: None. IMPRESSION: Normal single view chest. RADIA
[2018-06-16 08:48] LABS: ABNORMAL LYMPHS % (MANUAL) 0 %
[2018-06-16 08:53] LABS: BAND NEUTROPHILS % (MANUAL) 3 %; LYMPHOCYTES # (MANUAL) 1.2 10^3/uL (1.5-3.5); LYMPHOCYTES % (MANUAL) 2 %; METAMYELOCYTES % (MANUAL) 1 %; MONOCYTES # (MANUAL) 0.8 10^3/uL (0.0-1.0); MYELOCYTES % (MANUAL) 2 %; NEUTROPHILS # (MANUAL) 17.7 10^3/uL (1.5-6.6); NEUTROPHILS % (MANUAL) 84 %
[2018-06-16 08:54] LABS: DIFFERENTIAL COMMENT MANUAL DIFFERENTIAL; RBC MORPHOLOGY (MULTIPLE) 3+ ANISOCYTOSIS (NORMAL)
[2018-06-16] MEDS ORDERED: SODIUM CHLORIDE 0.9% 1,000 ML IV SCH ×2 (09:00→12:01)
[2018-06-16] MEDS ORDERED: IOPAMIDOL-300 100 ML VIAL ONE ×2 (09:26→09:40)
[2018-06-16] MEDS: FUROSEMIDE 20 MG TABLET PO SCH (09:52)
[2018-06-16] MEDS: POTASSIUM CHLORIDE 10 MEQ CAPSULE PO SCH (09:52)
[2018-06-16] MEDS: MAGNESIUM OXIDE 400 MG TABLET PO SCH (09:52)
[2018-06-16] MEDS: guaiFENesin 600 MG TABLET PO SCH ×2 (09:52→21:18)
[2018-06-16] MEDS: NICOTINE 14 MG PATCH TOP SCH (09:53)
[2018-06-16] MEDS: FAMOTIDINE 20 MG TABLET PO SCH ×2 (09:53→21:25)
[2018-06-16] MEDS: SPIRONOLACTONE 25 MG TABLET PO SCH (09:53)
[2018-06-16] MEDS: oxyCODONE ER 10 MG TABLET PO SCH (09:53)
[2018-06-16] MEDS: CALCIUM CARBONATE CHEW 500 MG TABLET PO SCH ×2 (09:53→21:18)
[2018-06-16] MEDS: NADOLOL 20 MG TABLET PO SCH (09:53)
[2018-06-16] MEDS: POLYETHYLENE GLYCOL 3350 17 GM PACKET PO SCH (09:54)
[2018-06-16] MEDS: ENOXAPARIN 40 MG/0.4 ML SYRINGE SUBQ SCH (09:54)
[2018-06-16] MEDS: SODIUM CHLORIDE FLUSH 0.9% 10 ML SYRINGE IVP SCH ×2 (10:22→15:43)
[2018-06-16 10:53] LABS: BILIRUBIN,URINE NEGATIVE (NEGATIVE); GLUCOSE, URINE (UA) NEGATIVE (NEGATIVE); KETONES,URINE (UA) TRACE mg/dL (NEGATIVE); LEUKOCYTE ESTERASE, URINE NEGATIVE (NEGATIVE); NITRITE,URINE NEGATIVE (NEGATIVE); OCCULT BLOOD,URINE NEGATIVE (NEGATIVE); PROTEIN,URINE TRACE mg/dL (NEGATIVE); UROBILINOGEN,URINE 0.2 (NORMAL) E.U./dL (NORMAL)
[2018-06-16 10:54] LABS: CLARITY,URINE CLEAR (CLEAR)
[2018-06-16 10:58] LABS: VANCOMYCIN,TROUGH 23.4 ug/mL (10.0-20.0)
[2018-06-16 11:11] LABS: BACTERIA,URINE Rare /HPF (None Seen); CRYSTALS,URINE 3-5 Calcium Oxalate /LPF; RBC,URINE 0-5 /HPF (0-5); SQUAMOUS EPITHELIAL CELL,UR NONE SEEN (<= Few)
--- NOTE | 2018-06-16 12:00 | PROVIDER PROGRESS NOTE ---
Subjective - Prog Note Date Prog Note Date: 06/16/18 - Subjective Pt reports feeling: No change Subjective: pt walked to bathroom and had a bath. Pt reported his both leg had pain for couples of days but does not increase pain today. Pt denies fever, chill, chest pain, shortness of breath. pt denies abdominal pain, or tenderness. I called ID Dr. Arreaga. Dr. Arreaga state we did good job. He recommended continue Zosyn and vancomycin, continue monitor. if pt is hemodynamic unstable, or CT of leg reveals severe deep tissue infection or necrotizing fasciitis, then pt need to be transferred to high level of care. Current Medications - Current Medications Current Medications: Active Medications Al Hydroxide/Mg Hydroxide (Mylanta Plus) 30 ml PO Q4HR PRN PRN Reason: INDIGESTION Albuterol () 2.5 mg INH RTQ4H PRN PRN Reason: Wheezing Last Admin: 06/16/18 05:57 Dose: 2.5 mg Albuterol/Ipratropium (Duoneb) 3 ml INH RTQID PRN PRN Reason: Shortness of Air/Wheezing Last Admin: 06/16/18 14:59 Dose: 3 ml Calcium Carbonate/Glycine (Tums) 500 mg PO BID [facility] Last Admin: 06/16/18 09:53 Dose: 500 mg Enoxaparin Sodium (Lovenox) 40 mg SUBQ DAILY [facility] Last Admin: 06/16/18 09:54 Dose: 40 mg Famotidine (Pepcid) 20 mg PO BID [facility] Last Admin: 06/16/18 09:53 Dose: 20 mg Furosemide (Lasix) 20 mg PO DAILY [facility] Last Admin: 06/16/18 09:52 Dose: 20 mg Guaifenesin (Mucinex) 600 mg PO BID [facility] Last Admin: 06/16/18 09:52 Dose: 600 mg Hydromorphone HCl (Dilaudid Inj Carp) 1 mg IVP Q4H PRN PRN Reason: PAIN Last Admin: 06/16/18 12:21 Dose: 1 mg Piperacillin Sod/Tazobactam (Sod 3.375 gm/ Sodium Chloride) 100 mls @ 200 mls/hr IV Q8HR [facility] Last Infusion: 06/16/18 13:41 Dose: Infused Vancomycin HCl 1 gm/Vancomycin HCl 250 mg/ Sodium Chloride 250 mls @ 166.667 mls/hr IV Q12H [facility] Sodium Chloride (Normal Saline 0.9%) 1,000 mls @ 125 mls/hr IV .Q8H [facility] Stop: 06/16/18 20:00 Last Admin: 06/16/18 13:03 Dose: 125 mls/hr Lactulose (Lactulose) 30 gm PO TID [facility] Last Admin: 06/16/18 13:29 Dose: 30 gm Magnesium Oxide (Mag Ox) 400 mg PO DAILYWM [facility] Last Admin: 06/16/18 09:52 Dose: 400 mg Nadolol (Corgard) 20 mg PO DAILY [facility] Last Admin: 06/16/18 09:53 Dose: 20 mg Nicotine (Nicoderm) 1 patch TOP DAILY [facility] Last Admin: 06/16/18 09:53 Dose: 1 patch Nystatin (Nystop) 1 applic TOP TID [facility] Last Admin: 06/16/18 12:37 Dose: 1 applic Ondansetron HCl (Zofran Inj) 4 mg IVP Q6HR PRN PRN Reason: Nausea / Vomiting Oxycodone HCl (Roxicodone) 10 mg PO Q8HR PRN PRN Reason: Pain 5 to 7 Last Admin: 06/16/18 14:42 Dose: 10 mg Oxycodone HCl (Oxycontin) 10 mg PO DAILY [facility] Last Admin: 06/16/18 09:53 Dose: 10 mg Polyethylene Glycol (Miralax) 17 gm PO DAILY [facility] Last Admin: 06/16/18 09:54 Dose: 17 gm Potassium Chloride (Micro-K) 10 meq PO DAILYWM [facility] Last Admin: 06/16/18 09:52 Dose: 10 meq Sodium Chloride (Normal Saline Flush 0.9%) 10 ml IVP PRN PRN PRN Reason: NEEDED PER PROVIDER ORDERS Last Admin: 06/16/18 06:17 Dose: 10 ml Sodium Chloride (Normal Saline Flush 0.9%) 10 ml IVP 0100,0900,1700 [facility] Last Admin: 06/16/18 10:22 Dose: Not Given Spironolactone (Aldactone) 50 mg PO DAILY [facility] Last Admin: 06/16/18 09:53 Dose: 50 mg Omeprazole 20 mg PO DAILY PRN 04/04/18 Albuterol Sulfate [Albuterol Sulfate Hfa] 2 puffs INH Q4H PRN 06/15/18 Fluticasone 44 Mcg [Flovent] 2 puffs INH BID 06/15/18 Furosemide [Lasix] 20 mg PO DAILY 06/15/18 Lactulose [Constulose] 30 ml PO TID 06/15/18 Metoprolol Tartrate [Lopressor] 25 mg PO BID 06/15/18 Oxycodone HCl 10 mg PO TID PRN 06/15/18 Potassium Chloride [Klor-Con 10] 10 meq PO DAILY 06/15/18 Spironolactone [Aldactone] 50 mg PO DAILY 06/15/18 oxyCODONE ER [OxyCONTIN] 10 mg PO DAILY 06/15/18 Objective - Vital Signs/Intake & Output Reviewed Vital Signs: Yes Vital Signs: Vital Signs x48h Temp Pulse Pulse Resp BP BP Pulse Ox 06/16/18 10:18 36.6 C 114 H 18 117/65 98 06/16/18 09:00 36.4 C L 109 H 18 109/68 99 06/16/18 05:58 110 H 18 06/16/18 04:54 36.6 C 112 H 20 142/86 H 100 Intake & Output: Intake & Output 06/13/18 06/14/18 06/15/18 06/16/18 23:59 23:59 23:59 23:59 Intake Total 1950 3460 2660 Balance 1950 3460 2660 - Objective General Appearance: positive: No acute distress, Alert. negative: Lethargic Eyes Bilateral: positive: Normal inspection, PERRL, No lid inflammation, Conjunctivae nml ENT: positive: ENT inspection nml, Pharynx nml, No signs of dehydration. negative: Purulent nasal drainage, Pharyngeal erythema, Oral lesions Neck: positive: Nml inspection, Thyroid nml, No JVD, Trachea midline. negative: Thyromegaly, Lymphadenopathy (R), Lymphadenopathy (L), Stiff neck, Swelling/bruising, Tracheal deviation Respiratory: positive: Chest non-tender, No respiratory distress, Breath sounds nml. negative: Wheezes, Rales, Rhonchi Cardiovascular: positive: Regular rate & rhythm, No murmur, No gallop. negative: Irregularly irregular, Extrasystoles, Tachycardia, Bradycardia, JVD present, Systolic murmur, Diastolic murmur Peripheral Pulses: 2+ Radial (R), 2+ Radial (L), 2+ Dorsalis pedis (R), 2+ Dorsalis pedis (L) Abdomen: positive: Non-tender, No organomegaly, Nml bowel sounds, No distention. negative: Tenderness, Guarding, Rebound Back: positive: Nml inspection. negative: CVA tenderness (R), CVA tenderness (L) Skin: positive: Warm, Dry, Skin rash, Decubitus Extremities: positive: Pedal edema, Calf tenderness. negative: Non-tender, Nml appearance, Joint swelling, Aletha's sign/cords Neurologic/Psychiatric: positive: Oriented x3, Motor nml, Sensation nml, Mood/affect nml. negative: Weakness, Sensory loss, Facial droop, Slurred/abnml speech, Depressed mood/affect - Lab Results Fish Bones: 06/16/18 Unknown 06/16/18 07:40 Other Labs: Lab Results x24hrs 06/16/18 06/16/18 06/16/18 Range/Units Unknown 10:41 10:41 WBC 20.4 H (4.8-10.8) x10^3/uL RBC 3.72 L (4.70-6.10) 10^6/uL Hgb 11.8 L (14.0-18.0) g/dL Hct 35.0 L (42.0-52.0) % MCV 94.0 (80.0-94.0) fL MCH 31.8 H (27.0-31.0) pg MCHC 33.8 (32.0-36.0) g/dL RDW 14.5 (12.0-15.0) % Plt Count 205 (130-450) 10^3/uL MPV 7.5 (7.4-11.4) fL Neut # (Auto) Not Reportable Lymph # (Auto) Not Reportable [place] # (Auto) Not Reportable Eos # (Auto) Not Reportable Baso # (Auto) Not Reportable Absolute Nucleated RBC Not Reportable Total Counted 100 Band Neuts % (Manual) 3 (0 - 10) % Reactive Lymphs % (Man) 4 % Abnorm Lymph % (Manual) 0 % Metamyelocytes % 1 H ( - 0) % Myelocytes % 2 H ( - 0) % Nucleated RBC % Not Reportable Neutrophils # (Manual) 17.7 H (1.5-6.6) 10^3/uL Lymphocytes # (Manual) 1.2 L (1.5-3.5) 10^3/uL Monocytes # (Manual) 0.8 (0.0-1.0) 10^3/uL Eosinophils # (Manual) 0.0 (0-0.7) 10^3/uL Basophils # (Manual) 0.0 (0-0.1) 10^3/uL Differential Comment MANUAL DIFFERENTIAL Manual Slide Review Indicated RBC Morph Micro Appear 3+ ANISOCYTOSIS (NORMAL) Sodium (135-145) mmol/L Potassium (3.5-5.0) mmol/L Chloride (101-111) mmol/L Carbon Dioxide (21-32) mmol/L Anion Gap (6-13) BUN (6-20) mg/dL Creatinine (0.6-1.2) mg/dL Estimated GFR (MDRD) (>89) Glucose (70-100) mg/dL Lactic Acid 3.2 H* (0.5-2.2) mmol/L Calcium (8.5-10.3) mg/dL Total Bilirubin (0.2-1.0) mg/dL AST (10-42) IU/L ALT (10-60) IU/L Alkaline Phosphatase (42-121) IU/L Total Protein (6.7-8.2) g/dL Albumin (3.2-5.5) g/dL Globulin (2.1-4.2) g/dL Albumin/Globulin Ratio (1.0-2.2) Urine Color Urine Clarity (CLEAR) Urine pH (5.0-7.5) PH Ur Specific [place] (1.002-1.030) Urine Protein (NEGATIVE) mg/dL Urine Glucose (UA) (NEGATIVE) mg/dL Urine Ketones (NEGATIVE) mg/dL Urine Occult Blood (NEGATIVE) Urine Nitrite (NEGATIVE) Urine Bilirubin (NEGATIVE) Urine Urobilinogen (NORMAL) E.U./dL Ur Leukocyte Esterase (NEGATIVE) Urine RBC (0-5) /HPF Urine WBC (0-3) /HPF Ur Squamous Epith Cells (<= Few) Urine Crystals /LPF Urine Bacteria (None Seen) /HPF Urine Culture Comments Last Dose Date UNK Last Dose Time UNK Vancomycin Trough 23.4 H (10.0-20.0) ug/mL 06/16/18 06/16/18 06/16/18 Range/Units 10:38 07:40 07:40 WBC (4.8-10.8) x10^3/uL RBC (4.70-6.10) 10^6/uL Hgb (14.0-18.0) g/dL Hct (42.0-52.0) % MCV (80.0-94.0) fL MCH (27.0-31.0) pg MCHC (32.0-36.0) g/dL RDW (12.0-15.0) % Plt Count (130-450) 10^3/uL MPV (7.4-11.4) fL Neut # (Auto) Lymph # (Auto) [place] # (Auto) Eos # (Auto) Baso # (Auto) Absolute Nucleated RBC Total Counted Band Neuts % (Manual) (0 - 10) % Reactive Lymphs % (Man) % Abnorm Lymph % (Manual) % Metamyelocytes % ( - 0) % Myelocytes % ( - 0) % Nucleated RBC % Neutrophils # (Manual) (1.5-6.6) 10^3/uL Lymphocytes # (Manual) (1.5-3.5) 10^3/uL Monocytes # (Manual) (0.0-1.0) 10^3/uL Eosinophils # (Manual) (0-0.7) 10^3/uL Basophils # (Manual) (0-0.1) 10^3/uL Differential Comment Manual Slide Review RBC Morph Micro Appear (NORMAL) Sodium 134 L (135-145) mmol/L Potassium 3.8 (3.5-5.0) mmol/L Chloride 103 (101-111) mmol/L Carbon Dioxide 22 (21-32) mmol/L Anion Gap 9.0 (6-13) BUN 18 (6-20) mg/dL Creatinine 0.8 (0.6-1.2) mg/dL Estimated GFR (MDRD) 110 (>89) Glucose 186 H (70-100) mg/dL Lactic Acid 3.0 H* (0.5-2.2) mmol/L Calcium 8.6 (8.5-10.3) mg/dL Total Bilirubin 2.1 H (0.2-1.0) mg/dL AST 75 H (10-42) IU/L ALT 63 H (10-60) IU/L Alkaline Phosphatase 156 H (42-121) IU/L Total Protein 6.4 L (6.7-8.2) g/dL Albumin 2.9 L (3.2-5.5) g/dL Globulin 3.5 (2.1-4.2) g/dL Albumin/Globulin Ratio 0.8 L (1.0-2.2) Urine Color DARK YELLOW Urine Clarity CLEAR (CLEAR) Urine pH 6.0 (5.0-7.5) PH Ur Specific [place] >=1.030 H (1.002-1.030) Urine Protein TRACE (NEGATIVE) mg/dL Urine Glucose (UA) NEGATIVE (NEGATIVE) mg/dL Urine Ketones TRACE (NEGATIVE) mg/dL Urine Occult Blood NEGATIVE (NEGATIVE) Urine Nitrite NEGATIVE (NEGATIVE) Urine Bilirubin NEGATIVE (NEGATIVE) Urine Urobilinogen 0.2 (NORMAL) (NORMAL) E.U./dL Ur Leukocyte Esterase NEGATIVE (NEGATIVE) Urine RBC 0-5 (0-5) /HPF Urine WBC 0-3 (0-3) /HPF Ur Squamous Epith Cells NONE SEEN (<= Few) Urine Crystals 3-5 Calcium Oxalate /LPF Urine Bacteria Rare (None Seen) /HPF Urine Culture Comments NOT INDICATED Last Dose Date Last Dose Time Vancomycin Trough (10.0-20.0) ug/mL 06/16/18 06/15/18 06/15/18 Range/Units 00:50 20:12 13:00 WBC (4.8-10.8) x10^3/uL RBC (4.70-6.10) 10^6/uL Hgb (14.0-18.0) g/dL Hct (42.0-52.0) % MCV (80.0-94.0) fL MCH (27.0-31.0) pg MCHC (32.0-36.0) g/dL RDW (12.0-15.0) % Plt Count (130-450) 10^3/uL MPV (7.4-11.4) fL Neut # (Auto) Lymph # (Auto) [place] # (Auto) Eos # (Auto) Baso # (Auto) Absolute Nucleated RBC Total Counted Band Neuts % (Manual) (0 - 10) % Reactive Lymphs % (Man) % Abnorm Lymph % (Manual) % Metamyelocytes % ( - 0) % Myelocytes % ( - 0) % Nucleated RBC % Neutrophils # (Manual) (1.5-6.6) 10^3/uL Lymphocytes # (Manual) (1.5-3.5) 10^3/uL Monocytes # (Manual) (0.0-1.0) 10^3/uL Eosinophils # (Manual) (0-0.7) 10^3/uL Basophils # (Manual) (0-0.1) 10^3/uL Differential Comment Manual Slide Review RBC Morph Micro Appear (NORMAL) Sodium (135-145) mmol/L Potassium (3.5-5.0) mmol/L Chloride (101-111) mmol/L Carbon Dioxide (21-32) mmol/L Anion Gap (6-13) BUN (6-20) mg/dL Creatinine (0.6-1.2) mg/dL Estimated GFR (MDRD) (>89) Glucose (70-100) mg/dL Lactic Acid 3.1 H* 3.2 H* 2.5 H (0.5-2.2) mmol/L Calcium (8.5-10.3) mg/dL Total Bilirubin (0.2-1.0) mg/dL AST (10-42) IU/L ALT (10-60) IU/L Alkaline Phosphatase (42-121) IU/L Total Protein (6.7-8.2) g/dL Albumin (3.2-5.5) g/dL Globulin (2.1-4.2) g/dL Albumin/Globulin Ratio (1.0-2.2) Urine Color Urine Clarity (CLEAR) Urine pH (5.0-7.5) PH Ur Specific [place] (1.002-1.030) Urine Protein (NEGATIVE) mg/dL Urine Glucose (UA) (NEGATIVE) mg/dL Urine Ketones (NEGATIVE) mg/dL Urine Occult Blood (NEGATIVE) Urine Nitrite (NEGATIVE) Urine Bilirubin (NEGATIVE) Urine Urobilinogen (NORMAL) E.U./dL Ur Leukocyte Esterase (NEGATIVE) Urine RBC (0-5) /HPF Urine WBC (0-3) /HPF Ur Squamous Epith Cells (<= Few) Urine Crystals /LPF Urine Bacteria (None Seen) /HPF Urine Culture Comments Last Dose Date Last Dose Time Vancomycin Trough (10.0-20.0) ug/mL ABX Reporting Has patient been on IV antibiotics over the past 48 hours?: Yes Sepsis Event Note (H) - Evaluation Current Stage of Sepsis: Sepsis Possible source of Sepsis: positive: Skin/soft tissue - Sepsis Criteria Sepsis Criteria: Recorded Heart Rate greater than 90 bpm, WBC count greater than 12,000 or less than 4000, Metabolic: lactate > 2 mmol/L Assessment/Plan - Problem List (1) Cellulitis Impression: (1) Sepsis Impression: pt continue to have elevated lactic acid, and WBC elevated to 20.4. pt continue complaint of leg pain but denies dramatical increase of pain. pt denies fever, chill. pt state he had drainage at his lower extremities wound but now there is no drainage now. pt also state he did see improvement in his lower extremities infection. called ID at , followup recommends, and continue Zosyn and vancomyin order wound culture order of CT of lower extremities, r/o severe infection or necrotizing fasciitis continue lactic acid monitor appreciate IVF of NS continue pain control continue lab, increase vital monitor (2) Cellulitis Impression: - as per above order wound culture order of CT of lower extremities, r/o severe infection or necrotizing fasciitis continue lactic acid monitor appreciate IVF of NS continue pain control continue lab, increase vital monitor (3) H/O cirrhosis/liver failure Impression: Will continue home medications of lasix, spironolactone, lactulose (4) Tobacco Use Disorder Impression: advise pt quit tobacco smoking Plan: - order nicotine patch Qualifiers: Site of cellulitis: extremity Site of cellulitis of extremity: lower extremity Laterality: unspecified laterality Qualified Code(s): L03.119 - Cellulitis of unspecified part of limb
[2018-06-16] MEDS: IOPAMIDOL-300 100 ML VIAL IVP ONE (14:15)
--- NOTE | 2018-06-16 14:57 | CT Report ---
Reason: severe infection/necrotizing fasciitis/dvt Procedure Date: 06/16/2018 Accession Number: [id number] / [id number] Procedure: CT - LOWER EXTREMITY W - LT CPT Code: FULL RESULT: EXAM: CT ANGIOGRAM LEFT LOWER EXTREMITY WITH CONTRAST EXAM DATE: 06/16/2018 12:56 PM. CLINICAL HISTORY: Severe infection/necrotizing fasciitis/dvt. COMPARISONS: Doppler ultrasound 06/14/[address] abdomen and pelvis 04/03/2018. TECHNIQUE: Routine helical CT angiogram imaging was performed through the abdomen, pelvis, and lower extremity in the arterial phase. IV contrast: ISOVUE 300: 100 mL. Enteric contrast: No. Reconstructions: Coronal, sagittal, and 3D MIP reconstructions. In accordance with CT protocol optimization, one or more of the following dose reduction techniques were utilized for this exam: automated exposure control, adjustment of mA and/or KV based on patient size, or use of iterative reconstructive technique. FINDINGS: Vasculature: Normal. No aneurysm, dissection, or significant atherosclerotic disease of the abdominal aorta. The visualized mesenteric and solid organ vascular structures are also within normal limits. Three-vessel runoff to the level of the tibiotalar joints bilaterally. Lung Bases: Atelectasis or scar in the lung bases. A few small cystic foci/pneumatoceles. Abdominal Solid Organs: Hepatic steatosis. The spleen, pancreas, adrenal glands, gallbladder and kidneys are normal in size and demonstrate no masses or abnormal enhancement. Peritoneal Cavity: Stomach diffusely distended with ingested materials.. No free fluid, free air, or acute inflammatory process. Musculature: Moderate fatty atrophy in the right gluteus melvin muscle. Mild fatty atrophy in the bilateral gluteus minimus and medius muscles. Limited evaluation for muscle edema on CT. Bones: Streak artifact from fixation hardware at the right acetabulum. Subacute healing nondisplaced fracture of right posterior 10th rib. Mild to moderate degenerative disk and facet changes in the lumbar spine. Mild degenerative changes at the sacroiliac joints and bilateral hips. Small to moderate bilateral hip joint effusions. Minimal tri-compartmental degenerative changes at the bilateral knees. Minimal bilateral knee joint effusions. Subacute or old ununited fracture fragment at the dorsal and lateral aspect of the left anterior process of the calcaneus. Fracture margins are sclerotic. Other: Mild to moderate subcutaneous edema over the posterior and lateral aspects of the abdomen and pelvis, more prominent on the left. Mild to moderate circumferential subcutaneous edema in the bilateral lower legs and feet with skin thickening. No focal drainable fluid collection visualized. No evidence of subcutaneous emphysema. IMPRESSION: 1. Mild to moderate subcutaneous edema versus cellulitis at the bilateral lower extremities and feet. 2. No evidence of focal fluid collection/abscess. 3. No evidence of subcutaneous emphysema. 4. Normal CT appearance of the arterial vasculature from the abdominal aorta through the three-vessel runoffs in the bilateral lower extremities. 5. Hepatic steatosis. 6. Healing subacute to chronic right posterior 10th rib fracture. 7. Degenerative changes in the lower lumbar spine, bony pelvis, and to a lesser extent knees . [facility]
--- NOTE | 2018-06-16 14:59 | CT Report ---
Reason: severe infection/necrotizing fasciitis/dvt Procedure Date: 06/16/2018 Accession Number: [id number] / [id number] Procedure: CT - LOWER EXTREMITY W - RT CPT Code: FULL RESULT: EXAM: CT ANGIOGRAM LEFT LOWER EXTREMITY WITH CONTRAST EXAM DATE: 06/16/2018 12:56 PM. CLINICAL HISTORY: Severe infection/necrotizing fasciitis/dvt. COMPARISONS: Doppler ultrasound 06/14/[address] abdomen and pelvis 04/03/2018. TECHNIQUE: Routine helical CT angiogram imaging was performed through the abdomen, pelvis, and lower extremity in the arterial phase. IV contrast: ISOVUE 300 100mL. Enteric contrast: No. Reconstructions: Coronal, sagittal, and 3D MIP reconstructions. In accordance with CT protocol optimization, one or more of the following dose reduction techniques were utilized for this exam: automated exposure control, adjustment of mA and/or KV based on patient size, or use of iterative reconstructive technique. FINDINGS: Vasculature: Normal. No aneurysm, dissection, or significant atherosclerotic disease of the abdominal aorta. The visualized mesenteric and solid organ vascular structures are also within normal limits. 3 vessel runoff to the level of the tibiotalar joints bilaterally. Lung Bases: Atelectasis or scar in the lung bases. A few small cystic foci/pneumatoceles. Abdominal Solid Organs: Hepatic steatosis. The Spleen, pancreas, adrenal glands, gallbladder and kidneys are normal in size and demonstrate no masses or abnormal enhancement. Peritoneal Cavity: Stomach diffusely distended with ingested materials.. No free fluid, free air, or acute inflammatory process. Musculature: Moderate fatty atrophy in the right gluteus melvin muscle. Mild fatty atrophy in the bilateral gluteus minimus and medius muscles. Limited evaluation for muscle edema on CT. Bones: Streak artifact from fixation hardware at the right acetabulum. Subacute healing nondisplaced fracture right posterior 10th rib. Mild to moderate degenerative disk and facet changes in the lumbar spine. Mild degenerative changes at the sacroiliac joints and bilateral hips. Small to moderate bilateral hip joint effusions. Minimal tri-compartment degenerative changes of the bilateral knees. Minimal bilateral knee joint effusions. Subacute or old ununited fracture fragment at the dorsal and lateral aspect left anterior process of the calcaneus. Fracture margins are sclerotic. Other: Mild to moderate subcutaneous edema over the posterior and lateral aspects abdomen and pelvis, more prominent on the left. Mild to moderate circumferential subcutaneous edema in the bilateral lower legs and feet with skin thickening. No focal drainable fluid collection visualized. No evidence of subcutaneous emphysema. IMPRESSION: 1. Mild to moderate subcutaneous edema versus cellulitis at the bilateral lower extremities and feet. 2. No evidence of focal fluid collection/abscess. 3. No evidence of subcutaneous emphysema. 4. Normal CT appearance of the arterial vasculature from the abdominal aorta through the three-vessel runoffs in the bilateral lower extremities. 5. Hepatic steatosis. 6. Healing subacute to chronic right posterior 10th rib fracture. 7. Degenerative changes lower lumbar spine, bony pelvis, and to lesser extent knees. [facility]
[2018-06-16] MEDS: VANCOMYCIN INJ 1 GM, VANCOMYCIN INJ 250 MG in SODIUM CHLORIDE 0.9% 250 ML IV SCH (15:42)
[2018-06-17] MEDS: CYCLOBENZAPRINE 10 MG TABLET PO PRN ×2 (00:18→11:19)
[2018-06-17] MEDS: SODIUM CHLORIDE FLUSH 0.9% 10 ML SYRINGE IVP SCH ×3 (00:34→17:30)
[2018-06-17] MEDS: SODIUM CHLORIDE FLUSH 0.9% 10 ML SYRINGE IVP PRN ×2 (03:44→16:00)
[2018-06-17] MEDS: HYDROmorphone 1 MG/ML CARPUJECT IVP PRN ×3 (03:44→21:08)
[2018-06-17] MEDS: VANCOMYCIN INJ 1 GM, VANCOMYCIN INJ 250 MG in SODIUM CHLORIDE 0.9% 250 ML IV SCH (04:04)
[2018-06-17] MEDS: ALBUTEROL NEB 2.5 MG/3 ML INH PRN (04:05)
[2018-06-17 05:48] LABS: BASOPHILS # (AUTO) 0.2 10^3/uL (0.0-0.1); BASOPHILS % (AUTO) 1.3 %; EOSINOPHILS # (AUTO) 0.2 10^3/uL (0.0-0.7); EOSINOPHILS % (AUTO) 1.3 %; LYMPHOCYTES % (AUTO) 21.7 %; MEAN CORPUSCULAR HEMOGLOBIN 31.5 pg (27.0-31.0); MEAN CORPUSCULAR HGB CONC 32.4 g/dL (32.0-36.0); MEAN CORPUSCULAR VOLUME 97.2 fL (80.0-94.0); MEAN PLATELET VOLUME 7.3 fL (7.4-11.4); MONOCYTES # (AUTO) 1.4 10^3/uL (0.0-1.0); NEUTROPHILS # (AUTO) 9.1 10^3/uL (1.5-6.6); NEUTROPHILS % (AUTO) 65.7 %; PLT - PLATELET COUNT 191 10^3/uL (130-450); RED CELL DISTRIBUTION WIDTH 14.6 % (12.0-15.0); WHITE BLOOD COUNT 13.9 x10^3/uL (4.8-10.8)
[2018-06-17 06:00] LABS: ALBUMIN 2.6 g/dL (3.2-5.5); ALBUMIN/GLOBULIN RATIO 0.8 (1.0-2.2); BILIRUBIN,TOTAL 1.6 mg/dL (0.2-1.0); CALCIUM 8.4 mg/dL (8.5-10.3); CREATININE 0.9 mg/dL (0.6-1.2); TOTAL PROTEIN 5.9 g/dL (6.7-8.2)
[2018-06-17] MEDS: PIPERACILLIN/TAZOBACTAM 3.375 GM in SODIUM CHLORIDE 0.9% MINIBAG 100 ML IV SCH ×3 (06:22→21:14)
[2018-06-17] MEDS: LACTULOSE 10 GM/15 ML BOTTLE PO SCH ×3 (06:24→21:03)
[2018-06-17] MEDS: NYSTATIN POWDER 15 GM TOP SCH ×3 (06:27→21:06)
[2018-06-17] MEDS: oxyCODONE 5 MG TABLET PO PRN ×2 (06:49→18:37)
[2018-06-17] MEDS: POLYETHYLENE GLYCOL 3350 17 GM PACKET PO SCH (07:40)
[2018-06-17] MEDS ORDERED: POTASSIUM CHLORIDE 20 MEQ TABLET PO ONE (07:54)
[2018-06-17] MEDS: POTASSIUM CHLORIDE 10 MEQ CAPSULE PO SCH (08:22)
[2018-06-17] MEDS: SPIRONOLACTONE 25 MG TABLET PO SCH (08:22)
[2018-06-17] MEDS: NADOLOL 20 MG TABLET PO SCH (08:22)
[2018-06-17] MEDS: guaiFENesin 600 MG TABLET PO SCH ×2 (08:22→21:03)
[2018-06-17] MEDS: FAMOTIDINE 20 MG TABLET PO SCH ×2 (08:22→21:03)
[2018-06-17] MEDS: CALCIUM CARBONATE CHEW 500 MG TABLET PO SCH ×2 (08:22→21:03)
[2018-06-17] MEDS: oxyCODONE ER 10 MG TABLET PO SCH (08:22)
[2018-06-17] MEDS: ENOXAPARIN 40 MG/0.4 ML SYRINGE SUBQ SCH (08:23)
[2018-06-17] MEDS: FUROSEMIDE 20 MG TABLET PO SCH (08:23)
[2018-06-17] MEDS: MAGNESIUM OXIDE 400 MG TABLET PO SCH (08:23)
[2018-06-17] MEDS: NICOTINE 14 MG PATCH TOP SCH (08:23)
[2018-06-17] MEDS ORDERED: MIN OIL/DIMETHICON/COCONUT OIL 92 GM TUBE TOP PRN (10:48)
--- NOTE | 2018-06-17 11:44 | PROVIDER PROGRESS NOTE ---
Subjective - Prog Note Date Prog Note Date: 06/17/18 - Subjective Pt reports feeling: Improved Subjective: pt report he had a good sleep on last night and felt better. He report his leg pain is reduced. Swelling and erythema also reduced. Pt denies fever, chill, CP. Current Medications - Current Medications Current Medications: Active Medications Al Hydroxide/Mg Hydroxide (Mylanta Plus) 30 ml PO Q4HR PRN PRN Reason: INDIGESTION Albuterol () 2.5 mg INH RTQ4H PRN PRN Reason: Wheezing Last Admin: 06/17/18 04:05 Dose: 2.5 mg Albuterol/Ipratropium (Duoneb) 3 ml INH RTQID PRN PRN Reason: Shortness of Air/Wheezing Last Admin: 06/16/18 14:59 Dose: 3 ml Calcium Carbonate/Glycine (Tums) 500 mg PO BID [facility] Last Admin: 06/17/18 08:22 Dose: 500 mg Cyclobenzaprine HCl (Flexeril) 10 mg PO TID PRN PRN Reason: Spasms Last Admin: 06/17/18 11:19 Dose: 10 mg Enoxaparin Sodium (Lovenox) 40 mg SUBQ DAILY [facility] Last Admin: 06/17/18 08:23 Dose: 40 mg Famotidine (Pepcid) 20 mg PO BID [facility] Last Admin: 06/17/18 08:22 Dose: 20 mg Furosemide (Lasix) 20 mg PO DAILY [facility] Last Admin: 06/17/18 08:23 Dose: 20 mg Guaifenesin (Mucinex) 600 mg PO BID [facility] Last Admin: 06/17/18 08:22 Dose: 600 mg Hydromorphone HCl (Dilaudid Inj Carp) 1 mg IVP Q4H PRN PRN Reason: PAIN Last Admin: 06/17/18 03:44 Dose: 1 mg Piperacillin Sod/Tazobactam (Sod 3.375 gm/ Sodium Chloride) 100 mls @ 200 mls/hr IV Q8HR [facility] Last Infusion: 06/17/18 07:31 Dose: Infused Vancomycin HCl 1 gm/Vancomycin HCl 250 mg/ Sodium Chloride 250 mls @ 166.667 mls/hr IV Q12H [facility] Last Infusion: 06/17/18 05:56 Dose: Infused Lactulose (Lactulose) 30 gm PO TID [facility] Last Admin: 06/17/18 06:24 Dose: 30 gm Magnesium Oxide (Mag Ox) 400 mg PO DAILYWM [facility] Last Admin: 06/17/18 08:23 Dose: 400 mg Mineral Oil (Cavilon) 1 applic TOP PRN PRN PRN Reason: Skin Care Nadolol (Corgard) 20 mg PO DAILY [facility] Last Admin: 06/17/18 08:22 Dose: 20 mg Nicotine (Nicoderm) 1 patch TOP DAILY [facility] Last Admin: 06/17/18 08:23 Dose: 1 patch Nystatin (Nystop) 1 applic TOP TID [facility] Last Admin: 06/17/18 06:27 Dose: 1 applic Ondansetron HCl (Zofran Inj) 4 mg IVP Q6HR PRN PRN Reason: Nausea / Vomiting Oxycodone HCl (Roxicodone) 10 mg PO Q8HR PRN PRN Reason: Pain 5 to 7 Last Admin: 06/17/18 06:49 Dose: 10 mg Oxycodone HCl (Oxycontin) 10 mg PO DAILY [facility] Last Admin: 06/17/18 08:22 Dose: 10 mg Polyethylene Glycol (Miralax) 17 gm PO DAILY [facility] Last Admin: 06/17/18 07:40 Dose: Not Given Potassium Chloride (Micro-K) 10 meq PO DAILYWM [facility] Last Admin: 06/17/18 08:22 Dose: 10 meq Sodium Chloride (Normal Saline Flush 0.9%) 10 ml IVP PRN PRN PRN Reason: NEEDED PER PROVIDER ORDERS Last Admin: 06/17/18 03:44 Dose: 10 ml Sodium Chloride (Normal Saline Flush 0.9%) 10 ml IVP 0100,0900,1700 [facility] Last Admin: 06/17/18 07:40 Dose: 10 ml Spironolactone (Aldactone) 50 mg PO DAILY [facility] Last Admin: 06/17/18 08:22 Dose: 50 mg Omeprazole 20 mg PO DAILY PRN 04/04/18 Albuterol Sulfate [Albuterol Sulfate Hfa] 2 puffs INH Q4H PRN 06/15/18 Fluticasone 44 Mcg [Flovent] 2 puffs INH BID 06/15/18 Furosemide [Lasix] 20 mg PO DAILY 06/15/18 Lactulose [Constulose] 30 ml PO TID 06/15/18 Metoprolol Tartrate [Lopressor] 25 mg PO BID 06/15/18 Oxycodone HCl 10 mg PO TID PRN 06/15/18 Potassium Chloride [Klor-Con 10] 10 meq PO DAILY 06/15/18 Spironolactone [Aldactone] 50 mg PO DAILY 06/15/18 oxyCODONE ER [OxyCONTIN] 10 mg PO DAILY 06/15/18 Objective - Vital Signs/Intake & Output Reviewed Vital Signs: Yes Vital Signs: Vital Signs x48h Temp Pulse Pulse Resp BP BP Pulse Ox 06/17/18 08:30 36.7 C 96 22 114/62 98 06/17/18 04:06 107 H 18 06/17/18 04:05 36.8 C 106 H 24 136/84 H 98 Intake & Output: Intake & Output 06/14/18 06/15/18 06/16/18 06/17/18 23:59 23:59 23:59 23:59 Intake Total 1950 3460 5550.000 1450 Output Total 2075 325 Balance 1950 3460 3475.000 1125 - Objective General Appearance: positive: No acute distress, Alert. negative: Lethargic Eyes Bilateral: positive: Normal inspection, PERRL, No lid inflammation, Conjunctivae nml ENT: positive: ENT inspection nml, Pharynx nml, No signs of dehydration. neg ative: Purulent nasal drainage, Pharyngeal erythema, Oral lesions Neck: positive: Nml inspection, Thyroid nml, No JVD, Trachea midline. negative: Thyromegaly, Lymphadenopathy (R), Lymphadenopathy (L), Stiff neck, Swelling/bruising, Tracheal deviation Respiratory: positive: Chest non-tender, No respiratory distress, Breath sounds nml. negative: Wheezes, Rales, Rhonchi Cardiovascular: positive: Regular rate & rhythm, No murmur, No gallop. negative: Irregularly irregular, Extrasystoles, Tachycardia, Bradycardia, JVD present, Systolic murmur, Diastolic murmur Peripheral Pulses: 2+ Radial (R), 2+ Radial (L), 2+ Dorsalis pedis (R), 2+ Dorsalis pedis (L) Abdomen: positive: Non-tender, No organomegaly, Nml bowel sounds, No distention. negative: Tenderness, Guarding, Rebound Back: positive: Nml inspection. negative: CVA tenderness (R), CVA tenderness (L) Skin: positive: Warm, Dry, Skin rash, Decubitus. negative: Cyanosis, Diaphoresis, Pallor Extremities: positive: Full ROM. negative: Calf tenderness, Joint swelling, Aletha's sign/cords Neurologic/Psychiatric: positive: Oriented x3, Motor nml, Sensation nml, Mood/affect nml. negative: Weakness, Sensory loss, Facial droop, Slurred/abnml speech, Depressed mood/affect - Lab Results Fish Bones: 06/17/18 05:40 06/17/18 05:40 Other Labs: Lab Results x24hrs 06/17/18 06/17/18 06/17/18 Range/Units 08:10 05:40 05:40 WBC 13.9 H (4.8-10.8) x10^3/uL RBC 3.80 L (4.70-6.10) 10^6/uL Hgb 12.0 L (14.0-18.0) g/dL Hct 36.9 L (42.0-52.0) % MCV 97.2 H (80.0-94.0) fL MCH 31.5 H (27.0-31.0) pg MCHC 32.4 (32.0-36.0) g/dL RDW 14.6 (12.0-15.0) % Plt Count 191 (130-450) 10^3/uL MPV 7.3 L (7.4-11.4) fL Neut # (Auto) 9.1 H (1.5-6.6) 10^3/uL Lymph # (Auto) 3.0 (1.5-3.5) 10^3/uL Perry # (Auto) 1.4 H (0.0-1.0) 10^3/uL Eos # (Auto) 0.2 (0.0-0.7) 10^3/uL Baso # (Auto) 0.2 H (0.0-0.1) 10^3/uL Absolute Nucleated RBC 0.00 x10^3/uL Nucleated RBC % 0.0 /100WBC D-Dimer (200.0-255.0) ng/mL Sodium 137 (135-145) mmol/L Potassium 3.3 L (3.5-5.0) mmol/L Chloride 105 (101-111) mmol/L Carbon Dioxide 23 (21-32) mmol/L Anion Gap 9.0 (6-13) BUN 12 (6-20) mg/dL Creatinine 0.9 (0.6-1.2) mg/dL Estimated GFR (MDRD) 96 (>89) Glucose 168 H (70-100) mg/dL Lactic Acid 1.4 (0.5-2.2) mmol/L Calcium 8.4 L (8.5-10.3) mg/dL Total Bilirubin 1.6 H (0.2-1.0) mg/dL AST 90 H (10-42) IU/L ALT 71 H (10-60) IU/L Alkaline Phosphatase 152 H (42-121) IU/L Total Protein 5.9 L (6.7-8.2) g/dL Albumin 2.6 L (3.2-5.5) g/dL Globulin 3.3 (2.1-4.2) g/dL Albumin/Globulin Ratio 0.8 L (1.0-2.2) 06/16/18 06/16/18 Range/Units 14:50 11:34 WBC (4.8-10.8) x10^3/uL RBC (4.70-6.10) 10^6/uL Hgb (14.0-18.0) g/dL Hct (42.0-52.0) % MCV (80.0-94.0) fL MCH (27.0-31.0) pg MCHC (32.0-36.0) g/dL RDW (12.0-15.0) % Plt Count (130-450) 10^3/uL MPV (7.4-11.4) fL Neut # (Auto) (1.5-6.6) 10^3/uL Lymph # (Auto) (1.5-3.5) 10^3/uL Perry # (Auto) (0.0-1.0) 10^3/uL Eos # (Auto) (0.0-0.7) 10^3/uL Baso # (Auto) (0.0-0.1) 10^3/uL Absolute Nucleated RBC x10^3/uL Nucleated RBC % /100WBC D-Dimer 592.9 H (200.0-255.0) ng/mL Sodium (135-145) mmol/L Potassium (3.5-5.0) mmol/L Chloride (101-111) mmol/L Carbon Dioxide (21-32) mmol/L Anion Gap (6-13) BUN (6-20) mg/dL Creatinine (0.6-1.2) mg/dL Estimated GFR (MDRD) (>89) Glucose (70-100) mg/dL Lactic Acid 1.7 (0.5-2.2) mmol/L Calcium (8.5-10.3) mg/dL Total Bilirubin (0.2-1.0) mg/dL AST (10-42) IU/L ALT (10-60) IU/L Alkaline Phosphatase (42-121) IU/L Total Protein (6.7-8.2) g/dL Albumin (3.2-5.5) g/dL Globulin (2.1-4.2) g/dL Albumin/Globulin Ratio (1.0-2.2) ABX Reporting Has patient been on IV antibiotics over the past 48 hours?: Yes Sepsis Event Note (H) - Evaluation Current Stage of Sepsis: Sepsis Possible source of Sepsis: positive: Skin/soft tissue - Sepsis Criteria Sepsis Criteria: Recorded Heart Rate greater than 90 bpm, WBC count greater than 12,000 or less than 4000, Metabolic: lactate > 2 mmol/L Assessment/Plan - Problem List (1) Sepsis Impression: 06/17 great improved. lactic acid continue down to the normal 1.4, WBC is significantly down to 13.9 from 20.4. pt's pain is reduced, erythema and sw elling are also reduced. continue Zosyn and Vancomycin continue lab and vital monitor continue pain control pt continue to have elevated lactic acid, and WBC elevated to 20.4. pt continue complaint of leg pain but denies dramatical increase of pain. pt denies fever, chill. pt state he had drainage at his lower extremities wound but now there is no drainage now. pt also state he did see improvement in his lower extremities infection. called ID at , followup recommends, and continue Zosyn and vancomyin order wound culture order of CT of lower extremities, r/o severe infection or necrotizing fasciitis continue lactic acid monitor appreciate IVF of NS continue pain control continue lab, increase vital monitor (2) Cellulitis Impression: 06/17, great improved, continue above treatment - as per above order wound culture order of CT of lower extremities, r/o severe infection or necrotizing fasciitis continue lactic acid monitor appreciate IVF of NS continue pain control continue lab, increase vital monitor (3) H/O cirrhosis/liver failure Impression: 06/17 stable, continue home meds Lasix and Spironolactone, Lactulose Will continue home medications of lasix, spironolactone, lactulose (4) Tobacco Use Disorder Impression: advise pt quit tobacco smoking Plan: - order nicotine patch Qualifiers: Sepsis type: sepsis due to unspecified organism Qualified Code(s): A41.9 - Sepsis, unspecified organism
[2018-06-17] MEDS ORDERED: VANCOMYCIN INJ 1 GM, VANCOMYCIN INJ 250 MG in SODIUM CHLORIDE 0.9% 250 ML IV SCH (23:00)
[2018-06-18] MEDS: SODIUM CHLORIDE FLUSH 0.9% 10 ML SYRINGE IVP SCH ×3 (01:46→16:50)
[2018-06-18] MEDS: HYDROmorphone 1 MG/ML CARPUJECT IVP PRN (03:08)
[2018-06-18] MEDS: SODIUM CHLORIDE FLUSH 0.9% 10 ML SYRINGE IVP PRN (03:08)
[2018-06-18] MEDS: oxyCODONE 5 MG TABLET PO PRN ×3 (05:20→22:40)
[2018-06-18] MEDS: LACTULOSE 10 GM/15 ML BOTTLE PO SCH (05:25)
[2018-06-18] MEDS: NYSTATIN POWDER 15 GM TOP SCH ×3 (05:40→21:46)
[2018-06-18] MEDS: PIPERACILLIN/TAZOBACTAM 3.375 GM in SODIUM CHLORIDE 0.9% MINIBAG 100 ML IV SCH ×3 (05:40→21:44)
[2018-06-18 05:47] LABS: BASOPHILS # (AUTO) 0.1 10^3/uL (0.0-0.1); BASOPHILS % (AUTO) 0.7 %; EOSINOPHILS # (AUTO) 0.4 10^3/uL (0.0-0.7); EOSINOPHILS % (AUTO) 2.5 %; HGB - HEMOGLOBIN 12.5 g/dL (14.0-18.0); LYMPHOCYTES # (AUTO) 2.7 10^3/uL (1.5-3.5); LYMPHOCYTES % (AUTO) 19.2 %; MEAN CORPUSCULAR HEMOGLOBIN 32.1 pg (27.0-31.0); MEAN CORPUSCULAR VOLUME 94.3 fL (80.0-94.0); MEAN PLATELET VOLUME 7.2 fL (7.4-11.4); MONOCYTES # (AUTO) 1.4 10^3/uL (0.0-1.0); NEUTROPHILS # (AUTO) 9.7 10^3/uL (1.5-6.6); NEUTROPHILS % (AUTO) 67.6 %; PLT - PLATELET COUNT 201 10^3/uL (130-450); RED BLOOD COUNT 3.89 10^6/uL (4.70-6.10); RED CELL DISTRIBUTION WIDTH 14.6 % (12.0-15.0); WHITE BLOOD COUNT 14.3 x10^3/uL (4.8-10.8)
[2018-06-18 05:58] LABS: ALBUMIN 2.8 g/dL (3.2-5.5); ALBUMIN/GLOBULIN RATIO 0.8 (1.0-2.2); BILIRUBIN,TOTAL 1.9 mg/dL (0.2-1.0); CALCIUM 8.9 mg/dL (8.5-10.3); CREATININE 1.1 mg/dL (0.6-1.2); MAGNESIUM 1.3 mg/dL (1.7-2.8); TOTAL PROTEIN 6.3 g/dL (6.7-8.2)
[2018-06-18] MEDS ORDERED: SODIUM CHLORIDE 0.9% 1,000 ML IV SCH (08:00)
[2018-06-18] MEDS: POLYETHYLENE GLYCOL 3350 17 GM PACKET PO SCH (08:15)
[2018-06-18] MEDS: MAGNESIUM OXIDE 400 MG TABLET PO SCH (08:37)
[2018-06-18] MEDS: SPIRONOLACTONE 25 MG TABLET PO SCH (08:37)
[2018-06-18] MEDS: CYCLOBENZAPRINE 10 MG TABLET PO PRN ×2 (08:38→17:15)
[2018-06-18] MEDS: guaiFENesin 600 MG TABLET PO SCH ×2 (08:38→20:43)
[2018-06-18] MEDS: oxyCODONE ER 10 MG TABLET PO SCH (08:38)
[2018-06-18] MEDS: CALCIUM CARBONATE CHEW 500 MG TABLET PO SCH ×2 (08:38→20:43)
[2018-06-18] MEDS: POTASSIUM CHLORIDE 10 MEQ CAPSULE PO SCH (08:38)
[2018-06-18] MEDS: FAMOTIDINE 20 MG TABLET PO SCH ×2 (08:39→20:43)
[2018-06-18] MEDS: NADOLOL 20 MG TABLET PO SCH (08:39)
[2018-06-18] MEDS: ENOXAPARIN 40 MG/0.4 ML SYRINGE SUBQ SCH (08:39)
[2018-06-18] MEDS: NICOTINE 14 MG PATCH TOP SCH (08:40)
[2018-06-18] MEDS: VANCOMYCIN INJ 1 GM, VANCOMYCIN INJ 250 MG in SODIUM CHLORIDE 0.9% 250 ML IV SCH (10:13)
--- NOTE | 2018-06-18 13:00 | PROVIDER PROGRESS NOTE ---
Subjective - Prog Note Date Prog Note Date: 06/18/18 - Subjective Pt reports feeling: Worse Subjective: pt report he did not think he is worsening. he report the leg pain is better. But erythema is more than yesterday, still tenderness and warm. pt's WBC e levated slightly. Current Medications - Current Medications Current Medications: Active Medications Al Hydroxide/Mg Hydroxide (Mylanta Plus) 30 ml PO Q4HR PRN PRN Reason: INDIGESTION Albuterol () 2.5 mg INH RTQ4H PRN PRN Reason: Wheezing Last Admin: 06/17/18 04:05 Dose: 2.5 mg Albuterol/Ipratropium (Duoneb) 3 ml INH RTQID PRN PRN Reason: Shortness of Air/Wheezing Last Admin: 06/16/18 14:59 Dose: 3 ml Calcium Carbonate/Glycine (Tums) 500 mg PO BID [facility] Last Admin: 06/18/18 08:38 Dose: 500 mg Cyclobenzaprine HCl (Flexeril) 10 mg PO TID PRN PRN Reason: Spasms Last Admin: 06/18/18 08:38 Dose: 10 mg Enoxaparin Sodium (Lovenox) 40 mg SUBQ DAILY [facility] Last Admin: 06/18/18 08:39 Dose: 40 mg Famotidine (Pepcid) 20 mg PO BID [facility] Last Admin: 06/18/18 08:39 Dose: 20 mg Guaifenesin (Mucinex) 600 mg PO BID [facility] Last Admin: 06/18/18 08:38 Dose: 600 mg Hydromorphone HCl (Dilaudid Inj Carp) 1 mg IVP Q4H PRN PRN Reason: PAIN Last Admin: 06/18/18 03:08 Dose: 1 mg Piperacillin Sod/Tazobactam (Sod 3.375 gm/ Sodium Chloride) 100 mls @ 25 mls/hr IV Q8HR [facility] Last Infusion: 06/18/18 07:03 Dose: 0 mls/hr Sodium Chloride (Normal Saline 0.9%) 1,000 mls @ 100 mls/hr IV .Q10H [facility] Stop: 06/18/18 17:59 Last Admin: 06/18/18 08:15 Dose: 100 mls/hr Daptomycin 1,000 mg/ Sodium (Chloride) 100 mls @ 200 mls/hr IV DAILY [facility] Last Admin: 06/18/18 13:36 Dose: 200 mls/hr Lactulose (Lactulose) 30 gm PO TID [facility] Last Admin: 06/18/18 05:25 Dose: 30 gm Magnesium Oxide (Mag Ox) 400 mg PO DAILYWM [facility] Last Admin: 06/18/18 08:37 Dose: 400 mg Mineral Oil (Cavilon) 1 applic TOP PRN PRN PRN Reason: Skin Care Nadolol (Corgard) 20 mg PO DAILY [facility] Last Admin: 06/18/18 08:39 Dose: 20 mg Nicotine (Nicoderm) 1 patch TOP DAILY [facility] Last Admin: 06/18/18 08:40 Dose: 1 patch Nystatin (Nystop) 1 applic TOP TID [facility] Last Admin: 06/18/18 05:40 Dose: 1 applic Ondansetron HCl (Zofran Inj) 4 mg IVP Q6HR PRN PRN Reason: Nausea / Vomiting Oxycodone HCl (Roxicodone) 10 mg PO Q8HR PRN PRN Reason: Pain 5 to 7 Last Admin: 06/18/18 05:20 Dose: 10 mg Oxycodone HCl (Oxycontin) 10 mg PO DAILY [facility] Last Admin: 06/18/18 08:38 Dose: 10 mg Polyethylene Glycol (Miralax) 17 gm PO DAILY [facility] Last Admin: 06/18/18 08:15 Dose: Not Given Potassium Chloride (Micro-K) 10 meq PO DAILYWM [facility] Last Admin: 06/18/18 08:38 Dose: 10 meq Sodium Chloride (Normal Saline Flush 0.9%) 10 ml IVP PRN PRN PRN Reason: NEEDED PER PROVIDER ORDERS Last Admin: 06/18/18 03:08 Dose: 10 ml Sodium Chloride (Normal Saline Flush 0.9%) 10 ml IVP 0100,0900,1700 [facility] Last Admin: 06/18/18 10:04 Dose: Not Given Spironolactone (Aldactone) 50 mg PO DAILY [facility] Last Admin: 06/18/18 08:37 Dose: 50 mg Omeprazole 20 mg PO DAILY PRN 04/04/18 Albuterol Sulfate [Albuterol Sulfate Hfa] 2 puffs INH Q4H PRN 06/15/18 Fluticasone 44 Mcg [Flovent] 2 puffs INH BID 06/15/18 Furosemide [Lasix] 20 mg PO DAILY 06/15/18 Lactulose [Constulose] 30 ml PO TID 06/15/18 Metoprolol Tartrate [Lopressor] 25 mg PO BID 06/15/18 Oxycodone HCl 10 mg PO TID PRN 06/15/18 Potassium Chloride [Klor-Con 10] 10 meq PO DAILY 06/15/18 Spironolactone [Aldactone] 50 mg PO DAILY 06/15/18 oxyCODONE ER [OxyCONTIN] 10 mg PO DAILY 06/15/18 Objective - Vital Signs/Intake & Output Reviewed Vital Signs: Yes Vital Signs: Vital Signs x48h Temp Pulse Resp BP Pulse Ox 06/18/18 08:10 36.9 C 99 18 122/73 99 Intake & Output: Intake & Output 06/15/18 06/16/18 06/17/18 06/18/18 23:59 23:59 23:59 23:59 Intake Total 3460 5550.000 2500 1023.333 Output Total 2075 3375 Balance 3460 3475.000 -875 1023.333 - Objective General Appearance: positive: No acute distress, Alert. negative: Lethargic Eyes Bilateral: positive: Normal inspection, PERRL, No lid inflammation, Conjunctivae nml ENT: positive: ENT inspection nml, Pharynx nml, No signs of dehydration. negative: Purulent nasal drainage, Pharyngeal erythema, Oral lesions Neck: positive: Nml inspection, Thyroid nml, No JVD, Trachea midline. negative: Thyromegaly, Lymphadenopathy (R), Lymphadenopathy (L), Stiff neck, Swelling/bruising, Tracheal deviation Respiratory: positive: Chest non-tender, No respiratory distress, Breath sounds nml. negative: Wheezes, Rales, Rhonchi Cardiovascular: positive: Regular rate & rhythm, No murmur, No gallop. negative: Irregularly irregular, Extrasystoles, Tachycardia, Bradycardia, JVD present, Systolic murmur, Diastolic murmur Peripheral Pulses: 2+ Radial (R), 2+ Radial (L), 2+ Dorsalis pedis (R), 2+ Dorsalis pedis (L) Abdomen: positive: Non-tender, No organomegaly, Nml bowel sounds, No distention. negative: Tenderness, Guarding, Rebound Back: positive: Nml inspection. negative: CVA tenderness (R), CVA tenderness (L) Skin: positive: Warm, Dry, Skin rash. negative: Cyanosis, Diaphoresis, Pallor Extremities: negative: Calf tenderness, Joint swelling, Aletha's sign/cords Neurologic/Psychiatric: positive: Oriented x3, Sensation nml, Mood/affect nml. negative: Weakness, Sensory loss, Facial droop, Slurred/abnml speech, Depressed mood/affect - Lab Results Fish Bones: 06/18/18 05:30 06/18/18 05:30 Other Labs: Lab Results x24hrs 06/18/18 06/18/18 06/17/18 Range/Units 05:30 05:30 16:40 WBC 14.3 H (4.8-10.8) x10^3/uL RBC 3.89 L (4.70-6.10) 10^6/uL Hgb 12.5 L (14.0-18.0) g/dL Hct 36.6 L (42.0-52.0) % MCV 94.3 H (80.0-94.0) fL MCH 32.1 H (27.0-31.0) pg MCHC 34.0 (32.0-36.0) g/dL RDW 14.6 (12.0-15.0) % Plt Count 201 (130-450) 10^3/uL MPV 7.2 L (7.4-11.4) fL Neut # (Auto) 9.7 H (1.5-6.6) 10^3/uL Lymph # (Auto) 2.7 (1.5-3.5) 10^3/uL R[place]els # (Auto) 1.4 H (0.0-1.0) 10^3/uL Eos # (Auto) 0.4 (0.0-0.7) 10^3/uL Baso # (Auto) 0.1 (0.0-0.1) 10^3/uL Absolute Nucleated RBC 0.02 x10^3/uL Nucleated RBC % 0.1 /100WBC Sodium 133 L (135-145) mmol/L Potassium 3.9 (3.5-5.0) mmol/L Chloride 100 L (101-111) mmol/L Carbon Dioxide 24 (21-32) mmol/L Anion Gap 9.0 (6-13) BUN 10 (6-20) mg/dL Creatinine 1.1 (0.6-1.2) mg/dL Estimated GFR (MDRD) 76 L (>89) Glucose 98 (70-100) mg/dL Calcium 8.9 (8.5-10.3) mg/dL Magnesium 1.3 L (1.7-2.8) mg/dL Total Bilirubin 1.9 H (0.2-1.0) mg/dL AST 83 H (10-42) IU/L ALT 69 H (10-60) IU/L Alkaline Phosphatase 156 H (42-121) IU/L Total Protein 6.3 L (6.7-8.2) g/dL Albumin 2.8 L (3.2-5.5) g/dL Globulin 3.5 (2.1-4.2) g/dL Albumin/Globulin Ratio 0.8 L (1.0-2.2) Last Dose Date 06/17/18 Last Dose Time 0556 Vancomycin Trough 23.0 H (10.0-20.0) ug/mL ABX Reporting Has patient been on IV antibiotics over the past 48 hours?: Yes Sepsis Event Note (H) - Evaluation Current Stage of Sepsis: Sepsis Possible source of Sepsis: positive: Skin/soft tissue - Sepsis Criteria Sepsis Criteria: Recorded Heart Rate greater than 90 bpm, WBC count greater than 12,000 or less than 4000, Metabolic: lactate > 2 mmol/L Assessment/Plan - Problem List (1) Sepsis Impression: 06/18 clinically pt is not improved comparing with yesterday. Pharmacy report Vancomycin did not give pt because slight elevated therapeutic Vancomycin through. Pharmacy recommend Daptomycin now instead of Vancomycin continue zosyne wound culture is pending 06/17 great improved. lactic acid continue down to the normal 1.4, WBC is signif icantly down to 13.9 from 20.4. pt's pain is reduced, erythema and swelling are also reduced. continue Zosyn and Vancomycin continue lab and vital monitor continue pain control pt continue to have elevated lactic acid, and WBC elevated to 20.4. pt continue complaint of leg pain but denies dramatical increase of pain. pt denies fever, chill. pt state he had drainage at his lower extremities wound but now there is no drainage now. pt also state he did see improvement in his lower extremities infection. called ID at , followup recommends, and continue Zosyn and vancomyin order wound culture order of CT of lower extremities, r/o severe infection or necrotizing fasciitis continue lactic acid monitor appreciate IVF of NS continue pain control continue lab, increase vital monitor (2) Cellulitis Impression: 06/18 start Daptomycin and continue Zosyn to treat pt 06/17, great improved, continue above treatment - as per above order wound culture order of CT of lower extremities, r/o severe infection or necrotizing fasciitis continue lactic acid monitor appreciate IVF of NS continue pain control continue lab, increase vital monitor (3) H/O cirrhosis/liver failure Impression: 06/17 stable, continue home meds Lasix and Spironolactone, Lactulose Will continue home medications of lasix, spironolactone, lactulose (4) Tobacco Use Disorder Impression: advise pt quit tobacco smoking Plan: - order nicotine patch Qualifiers: Sepsis type: sepsis due to unspecified organism Qualified Code(s): A41.9 - Sepsis, unspecified organism
[2018-06-18] MEDS: DAPTOMYCIN IV SCH (13:36)
[2018-06-18] MEDS: SODIUM CHLORIDE 0.9% IV SCH (13:36)
[2018-06-18] MEDS ORDERED: LACTULOSE 10 GM /15 ML UDC PO SCH (14:45)
[2018-06-18 16:20] LABS: VANCOMYCIN,TROUGH 34.4 ug/mL (10.0-20.0)
[2018-06-18] MEDS: IPRATROPIUM/ALBUTEROL 3 ML NEB INH PRN (16:24)
[2018-06-18] MEDS: MULTIVITAMIN W/MINERALS TABLET PO SCH (17:15)
[2018-06-18] MEDS: LACTULOSE 10 GM /15 ML UDC PO SCH (21:42)
[2018-06-19] MEDS: SODIUM CHLORIDE FLUSH 0.9% 10 ML SYRINGE IVP SCH ×3 (01:47→19:02)
[2018-06-19] MEDS: ALBUTEROL NEB 2.5 MG/3 ML INH PRN (02:15)
[2018-06-19] MEDS: PIPERACILLIN/TAZOBACTAM 3.375 GM in SODIUM CHLORIDE 0.9% MINIBAG 100 ML IV SCH (05:34)
[2018-06-19] MEDS: BENZOCAINE/MENTHOL LOZENGE MM PRN ×2 (05:52→08:41)
[2018-06-19] MEDS: LACTULOSE 10 GM /15 ML UDC PO SCH (05:52)
[2018-06-19] MEDS: NYSTATIN POWDER 15 GM TOP SCH (05:57)
[2018-06-19 06:14] LABS: ALBUMIN 2.6 g/dL (3.2-5.5); ALBUMIN/GLOBULIN RATIO 0.8 (1.0-2.2); BILIRUBIN,TOTAL 1.7 mg/dL (0.2-1.0); CALCIUM 8.4 mg/dL (8.5-10.3); TOTAL PROTEIN 5.9 g/dL (6.7-8.2)
[2018-06-19 06:20] LABS: BASOPHILS # (AUTO) 0.2 10^3/uL (0.0-0.1); BASOPHILS % (AUTO) 1.2 %; EOSINOPHILS # (AUTO) 0.4 10^3/uL (0.0-0.7); HGB - HEMOGLOBIN 12.8 g/dL (14.0-18.0); LYMPHOCYTES # (AUTO) 2.4 10^3/uL (1.5-3.5); MEAN CORPUSCULAR HEMOGLOBIN 31.6 pg (27.0-31.0); MEAN CORPUSCULAR HGB CONC 34.1 g/dL (32.0-36.0); MEAN CORPUSCULAR VOLUME 92.5 fL (80.0-94.0); MEAN PLATELET VOLUME 7.5 fL (7.4-11.4); MONOCYTES # (AUTO) 1.7 10^3/uL (0.0-1.0); MONOCYTES % (AUTO) 11.5 %; NEUTROPHILS # (AUTO) 9.7 10^3/uL (1.5-6.6); NEUTROPHILS % (AUTO) 67.3 %; PLT - PLATELET COUNT 187 10^3/uL (130-450); RED BLOOD COUNT 4.05 10^6/uL (4.70-6.10); RED CELL DISTRIBUTION WIDTH 14.7 % (12.0-15.0); WHITE BLOOD COUNT 14.4 x10^3/uL (4.8-10.8)
[2018-06-19] MEDS: oxyCODONE 5 MG TABLET PO PRN ×2 (06:40→16:04)
[2018-06-19] MEDS: POLYETHYLENE GLYCOL 3350 17 GM PACKET PO SCH (07:50)
[2018-06-19] MEDS ORDERED: MAGNESIUM SULFATE 2 GRAM 2 GM/50 ML BAG IV ONE (08:00)
[2018-06-19] MEDS ORDERED: SODIUM CHLORIDE 0.9% 100ML 100 ML IV ONE (08:39)
[2018-06-19] MEDS: SPIRONOLACTONE 25 MG TABLET PO SCH (08:41)
[2018-06-19] MEDS: oxyCODONE ER 10 MG TABLET PO SCH (08:42)
[2018-06-19] MEDS: NADOLOL 20 MG TABLET PO SCH (08:42)
[2018-06-19] MEDS: NICOTINE 14 MG PATCH TOP SCH (08:42)
[2018-06-19] MEDS: CALCIUM CARBONATE CHEW 500 MG TABLET PO SCH ×2 (08:42→21:10)
[2018-06-19] MEDS: MAGNESIUM OXIDE 400 MG TABLET PO SCH (08:42)
[2018-06-19] MEDS: MULTIVITAMIN W/MINERALS TABLET PO SCH (08:42)
[2018-06-19] MEDS: ENOXAPARIN 40 MG/0.4 ML SYRINGE SUBQ SCH (08:42)
[2018-06-19] MEDS: guaiFENesin 600 MG TABLET PO SCH ×2 (08:42→21:10)
[2018-06-19] MEDS: FAMOTIDINE 20 MG TABLET PO SCH ×2 (08:42→21:10)
[2018-06-19] MEDS: ASCORBIC ACID CHEW 500 MG TABLET PO SCH (08:42)
[2018-06-19] MEDS: SODIUM CHLORIDE 0.9% 500 ML IV PRN (08:43)
[2018-06-19] MEDS: POTASSIUM CHLORIDE 10 MEQ CAPSULE PO SCH (08:46)
[2018-06-19] MEDS: CYCLOBENZAPRINE 10 MG TABLET PO PRN ×3 (10:09→21:10)
[2018-06-19] MEDS: DAPTOMYCIN IV SCH (10:09)
[2018-06-19] MEDS: SODIUM CHLORIDE 0.9% IV SCH (10:09)
--- NOTE | 2018-06-19 11:39 | PROVIDER PROGRESS NOTE ---
Subjective - Prog Note Date Prog Note Date: 06/19/18 - Subjective Pt reports feeling: Improved Subjective: today clinically pt is slightly improving, erythema is reduced, swelling is slight reduced. pt denies fever, chill, chest pain, and shortness of breath. Current Medications - Current Medications Current Medications: Active Medications Al Hydroxide/Mg Hydroxide (Mylanta Plus) 30 ml PO Q4HR PRN PRN Reason: INDIGESTION Albuterol () 2.5 mg INH RTQ4H PRN PRN Reason: Wheezing Last Admin: 06/19/18 02:15 Dose: 2.5 mg Albuterol/Ipratropium (Duoneb) 3 ml INH RTQID PRN PRN Reason: Shortness of Air/Wheezing Last Admin: 06/18/18 16:24 Dose: 3 ml Ascorbic Acid (Vitamin C) 500 mg PO DAILY [facility] Last Admin: 06/19/18 08:42 Dose: 500 mg Calcium Carbonate/Glycine (Tums) 500 mg PO BID [facility] Last Admin: 06/19/18 08:42 Dose: 500 mg Cyclobenzaprine HCl (Flexeril) 10 mg PO TID PRN PRN Reason: Spasms Last Admin: 06/19/18 10:09 Dose: 10 mg Enoxaparin Sodium (Lovenox) 40 mg SUBQ DAILY [facility] Last Admin: 06/19/18 08:42 Dose: 40 mg Famotidine (Pepcid) 20 mg PO BID [facility] Last Admin: 06/19/18 08:42 Dose: 20 mg Guaifenesin (Mucinex) 600 mg PO BID [facility] Last Admin: 06/19/18 08:42 Dose: 600 mg Hydromorphone HCl (Dilaudid Inj Carp) 1 mg IVP Q4H PRN PRN Reason: PAIN Last Admin: 06/18/18 03:08 Dose: 1 mg Daptomycin 1,000 mg/ Sodium (Chloride) 100 mls @ 200 mls/hr IV DAILY [facility] Last Infusion: 06/19/18 10:39 Dose: Infused Sodium Chloride (Normal Saline 0.9%) 500 mls @ 0 mls/hr IV Q24H PRN PRN Reason: TKO RATE Last Admin: 06/19/18 08:43 Dose: 25 mls/hr Piperacillin Sod/Tazobactam (Sod 4.5 gm/ Sodium Chloride) 100 mls @ 200 mls/hr IV Q6H [facility] Lactulose (Enulose) 30 gm PO TID [facility] Last Admin: 06/19/18 05:52 Dose: 30 gm Magnesium Oxide (Mag Ox) 400 mg PO DAILYWM [facility] Last Admin: 06/19/18 08:42 Dose: 400 mg Mineral Oil (Cavilon) 1 applic TOP PRN PRN PRN Reason: Skin Care Multivitamins/Minerals (Theragran M) 1 tab PO DAILYWM [facility] Last Admin: 06/19/18 08:42 Dose: 1 tab Nadolol (Corgard) 20 mg PO DAILY [facility] Last Admin: 06/19/18 08:42 Dose: 20 mg Nicotine (Nicoderm) 1 patch TOP DAILY [facility] Last Admin: 06/19/18 08:42 Dose: 1 patch Nystatin (Nystop) 1 applic TOP TID [facility] Last Admin: 06/19/18 05:57 Dose: 1 applic Ondansetron HCl (Zofran Inj) 4 mg IVP Q6HR PRN PRN Reason: Nausea / Vomiting Oxycodone HCl (Roxicodone) 10 mg PO Q8HR PRN PRN Reason: Pain 5 to 7 Last Admin: 06/19/18 06:40 Dose: 10 mg Oxycodone HCl (Oxycontin) 10 mg PO DAILY [facility] Last Admin: 06/19/18 08:42 Dose: 10 mg Polyethylene Glycol (Miralax) 17 gm PO DAILY [facility] Last Admin: 06/19/18 07:50 Dose: Not Given Potassium Chloride (Micro-K) 10 meq PO DAILYWM [facility] Last Admin: 06/19/18 08:46 Dose: 10 meq Sodium Chloride (Normal Saline Flush 0.9%) 10 ml IVP PRN PRN PRN Reason: NEEDED PER PROVIDER ORDERS Last Admin: 06/18/18 03:08 Dose: 10 ml Sodium Chloride (Normal Saline Flush 0.9%) 10 ml IVP 0100,0900,1700 [facility] Last Admin: 06/19/18 08:43 Dose: 10 ml Spironolactone (Aldactone) 50 mg PO DAILY [facility] Last Admin: 06/19/18 08:41 Dose: 50 mg Throat Lozenges (Cepacol) 1 lozenge MM Q2HR PRN PRN Reason: Throat pain Last Admin: 06/19/18 08:41 Dose: 1 lozenge Zinc Sulfate () 220 mg PO DAILY [facility] Omeprazole 20 mg PO DAILY PRN 04/04/18 Albuterol Sulfate [Albuterol Sulfate Hfa] 2 puffs INH Q4H PRN 06/15/18 Fluticasone 44 Mcg [Flovent] 2 puffs INH BID 06/15/18 Furosemide [Lasix] 20 mg PO DAILY 06/15/18 Lactulose [Constulose] 30 ml PO TID 06/15/18 Metoprolol Tartrate [Lopressor] 25 mg PO BID 06/15/18 Oxycodone HCl 10 mg PO TID PRN 06/15/18 Potassium Chloride [Klor-Con 10] 10 meq PO DAILY 06/15/18 Spironolactone [Aldactone] 50 mg PO DAILY 06/15/18 oxyCODONE ER [OxyCONTIN] 10 mg PO DAILY 06/15/18 Objective - Vital Signs/Intake & Output Reviewed Vital Signs: Yes Vital Signs: Vital Signs x48h Temp Pulse Resp BP Pulse Ox 06/19/18 07:54 37.2 C 101 H 16 129/73 96 Intake & Output: Intake & Output 06/16/18 06/17/18 06/18/18 06/19/18 23:59 23:59 23:59 23:59 Intake Total 5550.000 2500 3043.333 2350 Output Total 2075 3375 Balance 3475.000 -875 3043.333 2350 - Objective General Appearance: positive: No acute distress, Alert. negative: Lethargic Eyes Bilateral: positive: Normal inspection, PERRL, No lid inflammation, Conjunctivae nml ENT: positive: ENT inspection nml, Pharynx nml, No signs of dehydration. negative: Purulent nasal drainage, Pharyngeal erythema, Oral lesions Neck: positive: Nml inspection, Thyroid nml, No JVD, Trachea midline. negative: Thyromegaly, Lymphadenopathy (R), Lymphadenopathy (L), Stiff neck, Swelling/bruising, Tracheal deviation Respiratory: positive: Chest non-tender, No respiratory distress, Breath sounds nml. negative: Wheezes, Rales, Rhonchi Cardiovascular: positive: Regular rate & rhythm, No murmur, No gallop. negative: Irregularly irregular, Extrasystoles, Tachycardia, Bradycardia, JVD present, Systolic murmur, Diastolic murmur Peripheral Pulses: 2+ Radial (R), 2+ Radial (L), 2+ Dorsalis pedis (R), 2+ Dorsalis pedis (L) Abdomen: positive: Non-tender, No organomegaly, Nml bowel sounds, No distention. negative: Tenderness, Guarding, Rebound Back: positive: Nml inspection. negative: CVA tenderness (R), CVA tenderness (L) Skin: positive: Warm, Dry, Skin rash. negative: Cyanosis, Diaphoresis, Pallor Extremities: negative: Calf tenderness, Joint swelling, Aletha's sign/cords Neurologic/Psychiatric: positive: Oriented x3, Sensation nml, Mood/affect nml. negative: Weakness, Sensory loss, Facial droop, Slurred/abnml speech, Depressed mood/affect - Lab Results Fish Bones: 06/19/18 05:38 06/19/18 05:38 Other Labs: Lab Results x24hrs 06/19/18 06/19/18 06/18/18 Range/Units 05:38 05:38 15:35 WBC 14.4 H (4.8-10.8) x10^3/uL RBC 4.05 L (4.70-6.10) 10^6/uL Hgb 12.8 L (14.0-18.0) g/dL Hct 37.5 L (42.0-52.0) % MCV 92.5 (80.0-94.0) fL MCH 31.6 H (27.0-31.0) pg MCHC 34.1 (32.0-36.0) g/dL RDW 14.7 (12.0-15.0) % Plt Count 187 (130-450) 10^3/uL MPV 7.5 (7.4-11.4) fL Neut # (Auto) 9.7 H (1.5-6.6) 10^3/uL Lymph # (Auto) 2.4 (1.5-3.5) 10^3/uL [place] # (Auto) 1.7 H (0.0-1.0) 10^3/uL Eos # (Auto) 0.4 (0.0-0.7) 10^3/uL Baso # (Auto) 0.2 H (0.0-0.1) 10^3/uL Absolute Nucleated RBC 0.02 x10^3/uL Nucleated RBC % 0.1 /100WBC Sodium 135 (135-145) mmol/L Potassium 4.0 (3.5-5.0) mmol/L Chloride 102 (101-111) mmol/L Carbon Dioxide 23 (21-32) mmol/L Anion Gap 10.0 (6-13) BUN 12 (6-20) mg/dL Creatinine 1.0 (0.6-1.2) mg/dL Estimated GFR (MDRD) 85 L (>89) Glucose 88 (70-100) mg/dL Calcium 8.4 L (8.5-10.3) mg/dL Total Bilirubin 1.7 H (0.2-1.0) mg/dL AST 66 H (10-42) IU/L ALT 50 (10-60) IU/L Alkaline Phosphatase 132 H (42-121) IU/L Total Protein 5.9 L (6.7-8.2) g/dL Albumin 2.6 L (3.2-5.5) g/dL Globulin 3.3 (2.1-4.2) g/dL Albumin/Globulin Ratio 0.8 L (1.0-2.2) Last Dose Date 06/18/18 Last Dose Time 1159 Vancomycin Trough 34.4 H* (10.0-20.0) ug/mL ABX Reporting Has patient been on IV antibiotics over the past 48 hours?: Yes Sepsis Event Note (H) - Evaluation Current Stage of Sepsis: Sepsis Possible source of Sepsis: positive: Skin/soft tissue - Sepsis Criteria Sepsis Criteria: Recorded Heart Rate greater than 90 bpm, WBC count greater than 12,000 or less than 4000, Metabolic: lactate > 2 mmol/L Assessment/Plan - Problem List (1) Sepsis Impression: 06/19 pt's WBC is still at 14, but clinically pt has some improvement. pt has no fever, chill. blood culture was negative continue treatment for underline infection with antibiotics 06/18 clinically pt is not improved comparing with yesterday. Pharmacy report Vancomycin did not give pt because slight elevated therapeutic Vancomycin through. Pharmacy recommend Daptomycin now instead of Vancomycin continue zosyne wound culture is pending 06/17 great improved. lactic acid continue down to the normal 1.4, WBC is significantly down to 13.9 from 20.4. pt's pain is reduced, erythema and swelling are also reduced. continue Zosyn and Vancomycin continue lab and vital monitor continue pain control pt continue to have elevated lactic acid, and WBC elevated to 20.4. pt continue complaint of leg pain but denies dramatical increase of pain. pt denies fever, chill. pt state he had drainage at his lower extremities wound but now there is no drainage now. pt also state he did see improvement in his lower extremities infection. called ID at , followup recommends, and continue Zosyn and vancomyin order wound culture order of CT of lower extremities, r/o severe infection or necrotizing fasciitis continue lactic acid monitor appreciate IVF of NS continue pain control continue lab, increase vital monitor (2) Cellulitis Impression: 06/19 wound culture reveals MRSA, and lots of yeast. Sensitive study reviewed continue Zosyn and cubicin, check CK for side effect of Cubicin Nystatin TOP for yeast Wound care and consult, followup 06/18 start Daptomycin and continue Zosyn to treat pt 06/17, great improved, continue above treatment - as per above order wound culture order of CT of lower extremities, r/o severe infection or necrotizing fasciitis continue lactic acid monitor appreciate IVF of NS continue pain control continue lab, increase vital monitor (3) H/O cirrhosis/liver failure Impression: 06/17 stable, continue home meds Lasix and Spironolactone, Lactulose Will continue home medications of lasix, spironolactone, lactulose (4) Tobacco Use Disorder Impression: advise pt quit tobacco smoking Plan: - order nicotine patch Qualifiers: Sepsis type: sepsis due to unspecified organism Qualified Code(s): A41.9 - Sepsis, unspecified organism
[2018-06-19] MEDS: PIPERACILLIN/TAZOBACTAM 4.5 GM in SODIUM CHLORIDE 0.9% MINIBAG 100 ML IV SCH ×2 (12:43→19:02)
[2018-06-19] MEDS: LACTULOSE 10 GM/15 ML BOTTLE PO SCH ×2 (13:32→21:11)
[2018-06-19] MEDS: ZINC SULFATE 220 MG CAPSULE PO SCH (19:03)
[2018-06-19] MEDS: NYSTATIN CREAM 15 GM TUBE TOP SCH (21:09)
[2018-06-20] MEDS: PIPERACILLIN/TAZOBACTAM 4.5 GM in SODIUM CHLORIDE 0.9% MINIBAG 100 ML IV SCH ×4 (00:28→18:00)
[2018-06-20] MEDS: BENZOCAINE/MENTHOL LOZENGE MM PRN ×2 (00:28→05:39)
[2018-06-20] MEDS: oxyCODONE 5 MG TABLET PO PRN ×3 (00:29→21:13)
[2018-06-20] MEDS: SODIUM CHLORIDE FLUSH 0.9% 10 ML SYRINGE IVP SCH ×3 (00:32→18:01)
[2018-06-20] MEDS: ALBUTEROL NEB 2.5 MG/3 ML INH PRN (04:50)
[2018-06-20] MEDS: SODIUM CHLORIDE 0.9% 500 ML IV PRN (05:36)
[2018-06-20] MEDS: LACTULOSE 10 GM/15 ML BOTTLE PO SCH ×3 (05:39→21:16)
[2018-06-20 05:48] LABS: BASOPHILS # (AUTO) 0.1 10^3/uL (0.0-0.1); BASOPHILS % (AUTO) 0.9 %; EOSINOPHILS # (AUTO) 0.4 10^3/uL (0.0-0.7); EOSINOPHILS % (AUTO) 2.9 %; HGB - HEMOGLOBIN 13.8 g/dL (14.0-18.0); LYMPHOCYTES # (AUTO) 2.3 10^3/uL (1.5-3.5); LYMPHOCYTES % (AUTO) 16.7 %; MEAN CORPUSCULAR HEMOGLOBIN 31.6 pg (27.0-31.0); MEAN CORPUSCULAR HGB CONC 33.5 g/dL (32.0-36.0); MEAN CORPUSCULAR VOLUME 94.5 fL (80.0-94.0); MONOCYTES # (AUTO) 1.6 10^3/uL (0.0-1.0); MONOCYTES % (AUTO) 11.4 %; NEUTROPHILS # (AUTO) 9.5 10^3/uL (1.5-6.6); NEUTROPHILS % (AUTO) 68.1 %; PLT - PLATELET COUNT 216 10^3/uL (130-450); RED BLOOD COUNT 4.35 10^6/uL (4.70-6.10); RED CELL DISTRIBUTION WIDTH 14.7 % (12.0-15.0)
[2018-06-20 05:54] LABS: ALBUMIN 2.9 g/dL (3.2-5.5); ALBUMIN/GLOBULIN RATIO 0.8 (1.0-2.2); BILIRUBIN,TOTAL 1.8 mg/dL (0.2-1.0); CALCIUM 9.1 mg/dL (8.5-10.3); CREATININE 1.1 mg/dL (0.6-1.2); MAGNESIUM 1.9 mg/dL (1.7-2.8); TOTAL PROTEIN 6.6 g/dL (6.7-8.2)
[2018-06-20] MEDS: POLYETHYLENE GLYCOL 3350 17 GM PACKET PO SCH (07:38)
[2018-06-20] MEDS ORDERED: SODIUM CHLORIDE 0.9% 1,000 ML IV SCH (08:00)
[2018-06-20] MEDS: SODIUM CHLORIDE 0.9% IV SCH (09:30)
[2018-06-20] MEDS: DAPTOMYCIN IV SCH (09:30)
[2018-06-20] MEDS: NADOLOL 20 MG TABLET PO SCH (09:31)
[2018-06-20] MEDS: MAGNESIUM OXIDE 400 MG TABLET PO SCH (09:31)
[2018-06-20] MEDS: CALCIUM CARBONATE CHEW 500 MG TABLET PO SCH ×2 (09:31→21:12)
[2018-06-20] MEDS: NICOTINE 14 MG PATCH TOP SCH (09:31)
[2018-06-20] MEDS: oxyCODONE ER 10 MG TABLET PO SCH (09:31)
[2018-06-20] MEDS: POTASSIUM CHLORIDE 10 MEQ CAPSULE PO SCH (09:31)
[2018-06-20] MEDS: SPIRONOLACTONE 25 MG TABLET PO SCH (09:31)
[2018-06-20] MEDS: ENOXAPARIN 40 MG/0.4 ML SYRINGE SUBQ SCH (09:31)
[2018-06-20] MEDS: FAMOTIDINE 20 MG TABLET PO SCH ×2 (09:32→21:12)
[2018-06-20] MEDS: MULTIVITAMIN W/MINERALS TABLET PO SCH (09:32)
[2018-06-20] MEDS: guaiFENesin 600 MG TABLET PO SCH ×2 (09:32→21:13)
[2018-06-20] MEDS: ASCORBIC ACID CHEW 500 MG TABLET PO SCH (09:32)
[2018-06-20] MEDS: NYSTATIN CREAM 15 GM TUBE TOP SCH ×2 (09:32→21:13)
[2018-06-20] MEDS: ZINC SULFATE 220 MG CAPSULE PO SCH (09:32)
[2018-06-20] MEDS: CYCLOBENZAPRINE 10 MG TABLET PO PRN (16:12)
--- NOTE | 2018-06-20 16:28 | PROVIDER PROGRESS NOTE ---
Subjective - Prog Note Date Prog Note Date: 06/20/18 - Subjective Pt reports feeling: No change Subjective: I called [facility] ID Dr Choi. she recommend, according to wound culture study and sensitivity study, pt can be d/c with oral Clindamycin for two weeks, and follow with wound care. pt told me today he had infection on his bilateral lower extremities for more than 6 months. [employer] reveals [place] [id number] from 03/2017. pt had a chronic lower extremities infection. Current Medications - Current Medications Current Medications: Active Medications Al Hydroxide/Mg Hydroxide (Mylanta Plus) 30 ml PO Q4HR PRN PRN Reason: INDIGESTION Albuterol () 2.5 mg INH RTQ4H PRN PRN Reason: Wheezing Last Admin: 06/20/18 04:50 Dose: 2.5 mg Albuterol/Ipratropium (Duoneb) 3 ml INH RTQID PRN PRN Reason: Shortness of Air/Wheezing Last Admin: 06/18/18 16:24 Dose: 3 ml Ascorbic Acid (Vitamin C) 500 mg PO DAILY [facility] Last Admin: 06/20/18 09:32 Dose: 500 mg Calcium Carbonate/Glycine (Tums) 500 mg PO BID [facility] Last Admin: 06/20/18 09:31 Dose: 500 mg Cyclobenzaprine HCl (Flexeril) 10 mg PO TID PRN PRN Reason: Spasms Last Admin: 06/20/18 16:12 Dose: 10 mg Enoxaparin Sodium (Lovenox) 40 mg SUBQ DAILY [facility] Last Admin: 06/20/18 09:31 Dose: 40 mg Famotidine (Pepcid) 20 mg PO BID [facility] Last Admin: 06/20/18 09:32 Dose: 20 mg Guaifenesin (Mucinex) 600 mg PO BID [facility] Last Admin: 06/20/18 09:32 Dose: 600 mg Hydromorphone HCl (Dilaudid Inj Carp) 1 mg IVP Q4H PRN PRN Reason: PAIN Last Admin: 06/18/18 03:08 Dose: 1 mg Daptomycin 1,000 mg/ Sodium (Chloride) 100 mls @ 200 mls/hr IV DAILY [facility] Last Infusion: 06/20/18 10:38 Dose: Infused Sodium Chloride (Normal Saline 0.9%) 500 mls @ 0 mls/hr IV Q24H PRN PRN Reason: TKO RATE Last Infusion: 06/20/18 10:57 Dose: Infused Piperacillin Sod/Tazobactam (Sod 4.5 gm/ Sodium Chloride) 100 mls @ 200 mls/hr IV Q6H [facility] Last Infusion: 06/20/18 12:42 Dose: Infused Sodium Chloride (Normal Saline 0.9%) 1,000 mls @ 100 mls/hr IV .Q10H [facility] Stop: 06/20/18 17:59 Last Admin: 06/20/18 09:31 Dose: 100 mls/hr Lactulose (Lactulose) 30 gm PO TID [facility] Last Admin: 06/20/18 13:18 Dose: 30 gm Magnesium Oxide (Mag Ox) 400 mg PO DAILYWM [facility] Last Admin: 06/20/18 09:31 Dose: 400 mg Mineral Oil (Cavilon) 1 applic TOP PRN PRN PRN Reason: Skin Care Multivitamins/Minerals (Theragran M) 1 tab PO DAILYWM [facility] Last Admin: 06/20/18 09:32 Dose: 1 tab Nadolol (Corgard) 20 mg PO DAILY [facility] Last Admin: 06/20/18 09:31 Dose: 20 mg Nicotine (Nicoderm) 1 patch TOP DAILY [facility] Last Admin: 06/20/18 09:31 Dose: 1 patch Nystatin (Mycostatin Cream) 1 applic TOP BID [facility] Last Admin: 06/20/18 09:32 Dose: 1 applic Ondansetron HCl (Zofran Inj) 4 mg IVP Q6HR PRN PRN Reason: Nausea / Vomiting Oxycodone HCl (Roxicodone) 10 mg PO Q8HR PRN PRN Reason: Pain 5 to 7 Last Admin: 06/20/18 11:58 Dose: 10 mg Oxycodone HCl (Oxycontin) 10 mg PO DAILY [facility] Last Admin: 06/20/18 09:31 Dose: 10 mg Polyethylene Glycol (Miralax) 17 gm PO DAILY [facility] Last Admin: 06/20/18 07:38 Dose: Not Given Potassium Chloride (Micro-K) 10 meq PO DAILYWM [facility] Last Admin: 06/20/18 09:31 Dose: 10 meq Sodium Chloride (Normal Saline Flush 0.9%) 10 ml IVP PRN PRN PRN Reason: NEEDED PER PROVIDER ORDERS Last Admin: 06/18/18 03:08 Dose: 10 ml Sodium Chloride (Normal Saline Flush 0.9%) 10 ml IVP 0100,0900,1700 [facility] Last Admin: 06/20/18 09:32 Dose: 10 ml Spironolactone (Aldactone) 50 mg PO DAILY [facility] Last Admin: 06/20/18 09:31 Dose: 50 mg Throat Lozenges (Cepacol) 1 lozenge MM Q2HR PRN PRN Reason: Throat pain Last Admin: 06/20/18 05:39 Dose: 1 lozenge Zinc Sulfate () 220 mg PO DAILY [facility] Last Admin: 06/20/18 09:32 Dose: 220 mg Omeprazole 20 mg PO DAILY PRN 04/04/18 Albuterol Sulfate [Albuterol Sulfate Hfa] 2 puffs INH Q4H PRN 06/15/18 Fluticasone 44 Mcg [Flovent] 2 puffs INH BID 06/15/18 Furosemide [Lasix] 20 mg PO DAILY 06/15/18 Lactulose [Constulose] 30 ml PO TID 06/15/18 Metoprolol Tartrate [Lopressor] 25 mg PO BID 06/15/18 Oxycodone HCl 10 mg PO TID PRN 06/15/18 Potassium Chloride [Klor-Con 10] 10 meq PO DAILY 06/15/18 Spironolactone [Aldactone] 50 mg PO DAILY 06/15/18 oxyCODONE ER [OxyCONTIN] 10 mg PO DAILY 06/15/18 Objective - Vital Signs/Intake & Output Reviewed Vital Signs: Yes Vital Signs: Vital Signs x48h Temp Pulse Pulse Resp BP Pulse Ox 06/20/18 15:36 36.9 C 94 18 105/63 96 06/20/18 12:50 102 H 18 Intake & Output: Intake & Output 06/17/18 06/18/18 06/19/18 06/20/18 23:59 23:59 23:59 23:59 Intake Total 2500 3043.333 3627.917 1755.083 Output Total 3375 Balance -875 3043.333 3627.917 1755.083 - Objective General Appearance: positive: No acute distress, Alert. negative: Lethargic Eyes Bilateral: positive: Normal inspection, PERRL, No lid inflammation, Conjunctivae nml ENT: positive: ENT inspection nml, Pharynx nml. negative: Purulent nasal drainage, Pharyngeal erythema Neck: positive: Nml inspection, Thyroid nml, No JVD, Trachea midline. negative: Thyromegaly, Lymphadenopathy (R), Lymphadenopathy (L), Stiff neck, Swelling/bruising, Tracheal deviation Respiratory: positive: Chest non-tender, No respiratory distress, Breath sounds nml. negative: Wheezes, Rales, Rhonchi Cardiovascular: positive: Regular rate & rhythm, No murmur, No gallop. negative: Irregularly irregular, Extrasystoles, Tachycardia, Bradycardia, JVD present, Systolic murmur, Diastolic murmur Peripheral Pulses: 2+ Radial (R), 2+ Radial (L), 2+ Dorsalis pedis (R), 2+ Dorsalis pedis (L) Abdomen: positive: Non-tender, No organomegaly, Nml bowel sounds, No distention. negative: Tenderness, Guarding, Rebound Back: positive: Nml inspection. negative: CVA tenderness (R), CVA tenderness (L) Skin: positive: Warm, Dry, Skin rash. negative: Cyanosis, Diaphoresis, Pallor Extremities: positive: Non-tender. negative: Calf tenderness, Aletha's sign/cords Neurologic/Psychiatric: positive: Oriented x3, Motor nml, Sensation nml, Mood/affect nml. negative: Weakness, Sensory loss, Facial droop, Slurred/abnml speech, Depressed mood/affect - Lab Results Fish Bones: 06/20/18 05:00 06/20/18 05:00 Other Labs: Lab Results x24hrs 06/20/18 06/20/18 06/20/18 Range/Units 05:00 05:00 05:00 WBC (4.8-10.8) x10^3/uL RBC (4.70-6.10) 10^6/uL Hgb (14.0-18.0) g/dL Hct (42.0-52.0) % MCV (80.0-94.0) fL MCH (27.0-31.0) pg MCHC (32.0-36.0) g/dL RDW (12.0-15.0) % Plt Count (130-450) 10^3/uL MPV (7.4-11.4) fL Neut # (Auto) (1.5-6.6) 10^3/uL Lymph # (Auto) (1.5-3.5) 10^3/uL [place] # (Auto) (0.0-1.0) 10^3/uL Eos # (Auto) (0.0-0.7) 10^3/uL Baso # (Auto) (0.0-0.1) 10^3/uL Absolute Nucleated RBC x10^3/uL Nucleated RBC % /100WBC ESR 57 H (0-15) mm/Hr Sodium (135-145) mmol/L Potassium (3.5-5.0) mmol/L Chloride (101-111) mmol/L Carbon Dioxide (21-32) mmol/L Anion Gap (6-13) BUN (6-20) mg/dL Creatinine (0.6-1.2) mg/dL Estimated GFR (MDRD) (>89) Glucose (70-100) mg/dL Calcium (8.5-10.3) mg/dL Magnesium (1.7-2.8) mg/dL Total Bilirubin (0.2-1.0) mg/dL AST (10-42) IU/L ALT (10-60) IU/L Alkaline Phosphatase (42-121) IU/L Total Creatine Kinase 20 L (22-269) IU/L C-Reactive Protein 4.7 H (0-1.0) mg/dL Total Protein (6.7-8.2) g/dL Albumin (3.2-5.5) g/dL Globulin (2.1-4.2) g/dL Albumin/Globulin Ratio (1.0-2.2) 06/20/18 06/20/18 Range/Units 05:00 05:00 WBC 14.0 H (4.8-10.8) x10^3/uL RBC 4.35 L (4.70-6.10) 10^6/uL Hgb 13.8 L (14.0-18.0) g/dL Hct 41.1 L (42.0-52.0) % MCV 94.5 H (80.0-94.0) fL MCH 31.6 H (27.0-31.0) pg MCHC 33.5 (32.0-36.0) g/dL RDW 14.7 (12.0-15.0) % Plt Count 216 (130-450) 10^3/uL MPV 7.0 L (7.4-11.4) fL Neut # (Auto) 9.5 H (1.5-6.6) 10^3/uL Lymph # (Auto) 2.3 (1.5-3.5) 10^3/uL [place] # (Auto) 1.6 H (0.0-1.0) 10^3/uL Eos # (Auto) 0.4 (0.0-0.7) 10^3/uL Baso # (Auto) 0.1 (0.0-0.1) 10^3/uL Absolute Nucleated RBC 0.03 x10^3/uL Nucleated RBC % 0.2 /100WBC ESR (0-15) mm/Hr Sodium 136 (135-145) mmol/L Potassium 4.4 (3.5-5.0) mmol/L Chloride 101 (101-111) mmol/L Carbon Dioxide 25 (21-32) mmol/L Anion Gap 10.0 (6-13) BUN 13 (6-20) mg/dL Creatinine 1.1 (0.6-1.2) mg/dL Estimated GFR (MDRD) 76 L (>89) Glucose 96 (70-100) mg/dL Calcium 9.1 (8.5-10.3) mg/dL Magnesium 1.9 (1.7-2.8) mg/dL Total Bilirubin 1.8 H (0.2-1.0) mg/dL AST 68 H (10-42) IU/L ALT 46 (10-60) IU/L Alkaline Phosphatase 154 H (42-121) IU/L Total Creatine Kinase (22-269) IU/L C-Reactive Protein (0-1.0) mg/dL Total Protein 6.6 L (6.7-8.2) g/dL Albumin 2.9 L (3.2-5.5) g/dL Globulin 3.7 (2.1-4.2) g/dL Albumin/Globulin Ratio 0.8 L (1.0-2.2) ABX Reporting Has patient been on IV antibiotics over the past 48 hours?: Yes Sepsis Event Note (H) - Evaluation Current Stage of Sepsis: Sepsis Possible source of Sepsis: positive: Skin/soft tissue - Sepsis Criteria Sepsis Criteria: Recorded Heart Rate greater than 90 bpm, WBC count greater than 12,000 or less than 4000, Metabolic: lactate > 2 mmol/L Assessment/Plan - Problem List (1) Sepsis Impression: 06/20 pt has no fever, chill, pt's blood culture is negative. pt's wound culture and sensitivity study was reviewed. I called ID of , Dr. Choi, she recommend pt can be switch to oral Clindamycin to home on tomorrow, followup wound care. pt had chronic lower extremities infection 06/19 pt's WBC is still at 14, but clinically pt has some improvement. pt has no fever, chill. blood culture was negative continue treatment for underline infection with antibiotics 06/18 clinically pt is not improved comparing with yesterday. Pharmacy report Vancomycin did not give pt because slight elevated therapeutic Vancomycin through. Pharmacy recommend Daptomycin now instead of Vancomycin continue zosyne wound culture is pending 06/17 great improved. lactic acid continue down to the normal 1.4, WBC is significantly down to 13.9 from 20.4. pt's pain is reduced, erythema and swellin g are also reduced. continue Zosyn and Vancomycin continue lab and vital monitor continue pain control pt continue to have elevated lactic acid, and WBC elevated to 20.4. pt continue complaint of leg pain but denies dramatical increase of pain. pt denies fever, chill. pt state he had drainage at his lower extremities wound but now there is no drainage now. pt also state he did see improvement in his lower extremities infection. called ID at , followup recommends, and continue Zosyn and vancomyin order wound culture order of CT of lower extremities, r/o severe infection or necrotizing fasciitis continue lactic acid monitor appreciate IVF of NS continue pain control continue lab, increase vital monitor (2) Cellulitis Impression: 06/20 will switch oral Clindamycin for d/c and followup [facility] wound clinic care 06/19 wound culture reveals MRSA, and lots of yeast. Sensitive study reviewed continue Zosyn and cubicin, check CK for side effect of Cubicin Nystatin TOP for yeast Wound care and consult, followup 06/18 start Daptomycin and continue Zosyn to treat pt 06/17, great improved, continue above treatment - as per above order wound culture order of CT of lower extremities, r/o severe infection or necrotizing fasciitis continue lactic acid monitor appreciate IVF of NS continue pain control continue lab, increase vital monitor (3) venous stasis pt can walk easily. it is great improvement. pt clinic present bilateral erythema, swelling, warm. it was chronic and more than 6 months per pt report. VISHAL of both lower extremities is around 1. Rise legs to help venous blood return pt can walk easily. it is great improvement. and encourage pt walk (4) H/O cirrhosis/liver failure Impression: 06/17 stable, continue home meds Lasix and Spironolactone, Lactulose Will continue home medications of lasix, spironolactone, lactulose (5) Tobacco Use Disorder Impression: advise pt quit tobacco smoking Plan: - order nicotine patch Qualifiers: Sepsis type: sepsis due to unspecified organism Qualified Code(s): A41.9 - Sepsis, unspecified organism
[2018-06-21] MEDS: PIPERACILLIN/TAZOBACTAM 4.5 GM in SODIUM CHLORIDE 0.9% MINIBAG 100 ML IV SCH ×2 (00:03→06:09)
[2018-06-21] MEDS: CYCLOBENZAPRINE 10 MG TABLET PO PRN (00:55)
[2018-06-21] MEDS: BENZOCAINE/MENTHOL LOZENGE MM PRN (01:02)
[2018-06-21] MEDS: ALBUTEROL NEB 2.5 MG/3 ML INH PRN (01:07)
[2018-06-21] MEDS: SODIUM CHLORIDE FLUSH 0.9% 10 ML SYRINGE IVP SCH ×2 (01:21→07:25)
[2018-06-21] MEDS: LACTULOSE 10 GM/15 ML BOTTLE PO SCH (06:10)
[2018-06-21] MEDS: oxyCODONE 5 MG TABLET PO PRN (06:25)
[2018-06-21 06:26] LABS: BASOPHILS # (AUTO) 0.2 10^3/uL (0.0-0.1); BASOPHILS % (AUTO) 1.4 %; EOSINOPHILS # (AUTO) 0.5 10^3/uL (0.0-0.7); EOSINOPHILS % (AUTO) 3.5 %; HGB - HEMOGLOBIN 13.3 g/dL (14.0-18.0); LYMPHOCYTES # (AUTO) 2.3 10^3/uL (1.5-3.5); LYMPHOCYTES % (AUTO) 17.2 %; MEAN CORPUSCULAR HEMOGLOBIN 31.4 pg (27.0-31.0); MEAN CORPUSCULAR HGB CONC 32.8 g/dL (32.0-36.0); MEAN CORPUSCULAR VOLUME 95.9 fL (80.0-94.0); MEAN PLATELET VOLUME 7.4 fL (7.4-11.4); MONOCYTES # (AUTO) 1.9 10^3/uL (0.0-1.0); MONOCYTES % (AUTO) 13.6 %; NEUTROPHILS # (AUTO) 8.8 10^3/uL (1.5-6.6); NEUTROPHILS % (AUTO) 64.3 %; PLT - PLATELET COUNT 216 10^3/uL (130-450); RED BLOOD COUNT 4.23 10^6/uL (4.70-6.10); RED CELL DISTRIBUTION WIDTH 14.9 % (12.0-15.0); WHITE BLOOD COUNT 13.7 x10^3/uL (4.8-10.8)
[2018-06-21 06:41] LABS: ALBUMIN 2.8 g/dL (3.2-5.5); ALBUMIN/GLOBULIN RATIO 0.8 (1.0-2.2); CALCIUM 8.8 mg/dL (8.5-10.3); CREATININE 1.1 mg/dL (0.6-1.2); TOTAL PROTEIN 6.5 g/dL (6.7-8.2)
[2018-06-21] MEDS: POLYETHYLENE GLYCOL 3350 17 GM PACKET PO SCH (07:24)
[2018-06-21 07:31] LABS: HB2 TOTAL 14.4 g/dL; HEMOGLOBIN A1C 0.57 g/dL; HEMOGLOBIN A1C % 5.8 % (4.6-6.2)
[2018-06-21] MEDS ORDERED: CLINDAMYCIN 150 MG CAPSULE PO SCH (08:00)
[2018-06-21 08:59] VITALS: BP 123/71
[2018-06-21] MEDS: NICOTINE 14 MG PATCH TOP SCH (09:20)
[2018-06-21] MEDS: NADOLOL 20 MG TABLET PO SCH (09:20)
[2018-06-21] MEDS: ENOXAPARIN 40 MG/0.4 ML SYRINGE SUBQ SCH (09:20)
[2018-06-21] MEDS: MULTIVITAMIN W/MINERALS TABLET PO SCH (09:20)
[2018-06-21] MEDS: MAGNESIUM OXIDE 400 MG TABLET PO SCH (09:20)
[2018-06-21] MEDS: oxyCODONE ER 10 MG TABLET PO SCH (09:20)
[2018-06-21] MEDS: FAMOTIDINE 20 MG TABLET PO SCH (09:20)
[2018-06-21] MEDS: POTASSIUM CHLORIDE 10 MEQ CAPSULE PO SCH (09:21)
[2018-06-21] MEDS: ZINC SULFATE 220 MG CAPSULE PO SCH (09:21)
[2018-06-21] MEDS: guaiFENesin 600 MG TABLET PO SCH (09:21)
[2018-06-21] MEDS: CALCIUM CARBONATE CHEW 500 MG TABLET PO SCH (09:21)
[2018-06-21] MEDS: NYSTATIN CREAM 15 GM TUBE TOP SCH (09:21)
[2018-06-21] MEDS: SPIRONOLACTONE 25 MG TABLET PO SCH (09:21)
[2018-06-21] MEDS: ASCORBIC ACID CHEW 500 MG TABLET PO SCH (09:21)
[2018-06-21] MEDS: SODIUM CHLORIDE 0.9% IV SCH (10:18)
[2018-06-21] MEDS: DAPTOMYCIN IV SCH (10:18)
--- NOTE | 2018-06-21 10:59 | Discharge Plan ---
Discharge Plan Disposition: Home, Self Care Condition: Poor Prescriptions: Clindamycin [Cleocin] 450 mg PO Q6HR #168 capsule Nystatin Cream [Mycostatin Cream] 1 gm TOP ONCE #1 tube Saccharomyces Boulardii [Florastor] 250 mg PO BID #28 capsule Diet: Regular Activity Restrictions: Activity as Tolerated Shower Restrictions: No (fall precaution) Instruction Topics: MRSA Infec, Clindamycin capsules, Nystatin skin cream or ointment, Chronic Venous Insufficiency Ulcer Additional Instructions or Follow Up instructions: You may followup your PCP in one week, followup infection disease physician as out-pt, followup [facility] for wound care. Should your symptoms return or worsen, you may present ER, call 911 or your PCP for help. Follow-Up Care: [facility] - Wound/Ostomy No Smoking: If you smoke, Please STOP! Call for help. Follow-up with: Ayde Estrada DNP [Primary Care Provider] -
--- NOTE | 2018-06-21 11:04 | DISCHARGE SUMMARY ---
Discharge Summary Discharge Date: 06/21/18 Discharging Provider: JOHNSON Primary Care Provider: Dr. Arriaga Condition at Discharge: Poor Discharge Disposition: 01 Home, Self Care Discharge Facility Name: home - DIAGNOSES Admission Diagnoses: (1) Sepsis (2) Cellulitis (3) H/O cirrhosis Discharge Diagnoses with Status of Each Condition: (1) Sepsis (2) Cellulitis (3) venous stasis (4) H/O cirrhosis/liver failure (5) Tobacco Use Disorder - HPI History of Present Illness: refer from Ms. Tarango's HPI on 06/14/18 for pt as the following: Timmy Castañeda is a 33 year old male who is a poor historian of his health conditions. His was present earlier in the ER, but has since left to go to work. He has a PMH significant for alcoholic hepatitis, h/o alcohol abuse, ?history of cirrhosis given the medications he is currently taking. Of note, he was admitted to [facility] 04/03/2018 for acute alcoholic hepatitis. In addition, the patient reports he was recently hospitalized at [place], but he is unable to tell me why he was admitted, but he knows that it was not related to the problem he is presenting with today. The patient presented to his PCP today with complaints of lower leg edema, erythema and increased pain. His PCP advised him to be evaluated in the ER. He reports he has had bilateral lower extremity edema for the last 3 months. He reports his bilateral lower legs are 'leaking bilirubin' and cannot tell me when the weeping started. 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 He states the redness has been present for the last month and over the last week and a half the redness and pain has increased. He states walking across the room takes his 5x longer than the average person due to the pain. He describes the pain as burning, stabbing, and 'everything in between all at once'. The pain is present at rest and with movement. At home, he is on oxycontin and oxycodone and reports these are not controlling his pain currently. He also endorses swelling in his mouth, difficulty taking deep breaths, and new reddened areas on the palms of his hands with edema of his hands. He denies any new medications, recollections of being bit, or hitting them on anything. He denies CP, N/V/D or dizziness. He presents with sepsis (HR 105, WBC 13.9) with suspected source of infection BLE and lactic acid 2.5. He received IVF, clindamycin and unasyn in the ER. Bilateral duplex negative for DVT. He is being admitted to the hospital for treatment of his BLE cellulitis. Patient wishes to be a full code. - HOSPITAL COURSE Hospital Course: (1) Sepsis resolved. Pt has hx of slight elevated WBC. lactic acid is normal, p has no fever. pt has no pain on his leg. pt state he can walk without pain. Pt state he has great improvement. ID in was consulted and agreed to d/c pt with Clindamy rodriguez. followup [facility] for wound care (2) Cellulitis stable, documented as the above. continue finish the antibiotics course, followup [facility] for wound care (3) venous stasis stable, followup [facility] for wound care (4) H/O cirrhosis/liver failure stable (5) Tobacco Use Disorder consult with pt to quit tobacco - ALLERGIES Allergies/Adverse Reactions: Allergies Allergy/AdvReac Type Severity Reaction Status Date / Time acetaminophen Allergy Unknown Verified 06/14/18 15:51 NSAIDS (Non-Steroidal Allergy Unknown Verified 06/14/18 15:51 Anti-Inflamma - MEDICATIONS Home Medications: Ambulatory Orders Medication Instructions Recorded Confirmed Omeprazole 20 mg PO DAILY PRN 04/04/18 06/15/18 Albuterol Sulfate [Albuterol 2 puffs INH Q4H PRN 06/15/18 06/15/18 Sulfate Hfa] Fluticasone 44 Mcg [Flovent] 2 puffs INH BID 06/15/18 06/15/18 Furosemide [Lasix] 20 mg PO DAILY 06/15/18 06/15/18 Lactulose [Constulose] 30 ml PO TID 06/15/18 06/15/18 Metoprolol Tartrate [Lopressor] 25 mg PO BID 06/15/18 06/15/18 Oxycodone HCl 10 mg PO TID PRN 06/15/18 06/15/18 Potassium Chloride [Klor-Con 10] 10 meq PO DAILY 06/15/18 06/15/18 Spironolactone [Aldactone] 50 mg PO DAILY 06/15/18 06/15/18 oxyCODONE ER [OxyCONTIN] 10 mg PO DAILY 06/15/18 06/15/18 Clindamycin [Cleocin] 450 mg PO Q6HR #168 capsule 06/21/18 Nystatin Cream [Mycostatin Cream] 1 gm TOP ONCE #1 tube 06/21/18 Saccharomyces Boulardii [Florastor] 250 mg PO BID #28 capsule 06/21/18 - PHYSICAL EXAM AT DISCHARGE General Appearance: positive: No acute distress, Alert. negative: Lethargic Eyes Bilateral: positive: Normal inspection, PERRL, No lid inflammation, Conjunctivae nml ENT: positive: ENT inspection nml, Pharynx nml. negative: Purulent nasal drainage, Pharyngeal erythema, Oral lesions Neck: positive: Nml inspection, Thyroid nml, No JVD, Trachea midline. negative: Thyromegaly, Lymphadenopathy (R), Lymphadenopathy (L), Stiff neck, Swelling/bruising, Tracheal deviation Respiratory: positive: Chest non-tender, No respiratory distress, Breath sounds nml. negative: Wheezes, Rales, Rhonchi Cardiovascular: positive: Regular rate & rhythm, No murmur, No gallop, Irregularly irregular. negative: Extrasystoles, Tachycardia, Bradycardia, JVD present, Systolic murmur, Diastolic murmur Peripheral Pulses: positive: 2+ Abdomen: positive: Non-tender, No organomegaly, Nml bowel sounds, No distention. negative: Tenderness, Guarding, Rebound Back: positive: Nml inspection. negative: CVA tenderness (R), CVA tenderness (L) Skin: positive: Warm, Dry, Skin rash. negative: Cyanosis, Diaphoresis, Pallor Extremities: positive: Non-tender, Full ROM. negative: Calf tenderness, Aletha's sign/cords Neurologic/Psychiatric: positive: Oriented x3, Motor nml, Sensation nml, Mood/affect nml. negative: Weakness, Sensory loss, Facial droop, Slurred/abnml speech, Depressed mood/affect - LABS Result Diagrams: 06/21/18 05:10 06/21/18 05:05 - SEPSIS Current Stage of Sepsis: Sepsis Possible source of Sepsis: Skin/soft tissue Sepsis Criteria: Recorded Heart Rate greater than 90 bpm, WBC count greater than 12,000 or less than 4000, Metabolic: lactate > 2 mmol/L - FOLLOW UP Follow Up: You may followup your PCP in one week, followup infection disease physician as out-pt, followup [facility] for wound care. Should your symptoms return or worsen, you may present ER, call 911 or your PCP for help. - TIME SPENT Time Spent in Discharge (Minutes): 55
== END 2018-06-21 12:46 | disposition home or self-care (01) | DRG 872 ==
LOC: ED 15:13 → MS2 17:31
PROVIDERS: ADMIT Nurse Practitioner; ATTEND Nurse Practitioner Gerontology
DX: A41.02 Sepsis due to Methicillin resistant Staphylococcus aureus (principal); L03.116 Cellulitis of left lower limb; L03.115 Cellulitis of right lower limb; E87.2 Acidosis; L97.222 Non-pressure chronic ulcer of left calf with fat layer exposed; L97.212 Non-pressure chronic ulcer of right calf with fat layer exposed; B37.7 Candidal sepsis; K70.10 Alcoholic hepatitis without ascites; K70.30 Alcoholic cirrhosis of liver without ascites; F10.10 Alcohol abuse, uncomplicated; I87.2 Venous insufficiency (chronic) (peripheral); F17.200 Nicotine dependence, unspecified, uncomplicated; J45.909 Unspecified asthma, uncomplicated; K21.9 Gastro-esophageal reflux disease without esophagitis; R53.83 Other fatigue; E66.9 Obesity, unspecified; Z68.38 Body mass index [BMI] 38.0-38.9, adult; Z79.1 Long term (current) use of non-steroidal anti-inflammatories (NSAID); Z79.891 Long term (current) use of opiate analgesic
CPT/HCPCS: 36415; 71045; 73701; 80053; 80202; 81001; 82550; 83036; 83605; 83690; 83735; 85025; 85379; 85610; 85651; 86140; 87040; 93922; 93970; 94640; 96365; 99283; A6250; A9270; J0878; J1170; J1650; J3370; J8499; Q9967; 80048; 87070; 87086; 87205

== ENCOUNTER 2018-07-11 09:14 | Outpatient (CLI) | payer MEDICAID ==
[2018-07-11 18:05] LABS: HGB - HEMOGLOBIN 13.5 g/dL (14.0-18.0); MEAN CORPUSCULAR HEMOGLOBIN 30.9 pg (27.0-31.0); MEAN CORPUSCULAR HGB CONC 33.3 g/dL (32.0-36.0); MEAN CORPUSCULAR VOLUME 92.6 fL (80.0-94.0); MEAN PLATELET VOLUME 7.5 fL (7.4-11.4); RED BLOOD COUNT 4.37 10^6/uL (4.70-6.10); RED CELL DISTRIBUTION WIDTH 14.6 % (12.0-15.0); WHITE BLOOD COUNT 9.7 x10^3/uL (4.8-10.8)
[2018-07-11 18:08] LABS: ALBUMIN 3.7 g/dL (3.2-5.5); ALBUMIN/GLOBULIN RATIO 0.9 (1.0-2.2); BILIRUBIN,TOTAL 1.2 mg/dL (0.2-1.0); CALCIUM 9.7 mg/dL (8.5-10.3); CREATININE 1.1 mg/dL (0.6-1.2); PHOSPHORUS 4.9 mg/dL (2.5-4.6); TOTAL PROTEIN 7.9 g/dL (6.7-8.2)
[2018-07-11 18:10] LABS: PROTEIN/CREATININE RATIO,URINE 0.1 (<=0.2)
== END 2018-07-11 09:15 | disposition home or self-care (01) ==
LOC: LAB.F 09:14
PROVIDERS: ATTEND Internal Medicine Nephrology
DX: N18.3 Chronic kidney disease, stage 3 (moderate) (principal)
CPT/HCPCS: 36415; 80053; 80069; 82570; 84156; 85027

== ENCOUNTER 2018-08-30 09:20 | Outpatient (CLI) | payer MEDICAID ==
[2018-08-30 17:33] LABS: BASOPHILS # (AUTO) 0.1 10^3/uL (0.0-0.1); BASOPHILS % (AUTO) 0.7 %; EOSINOPHILS # (AUTO) 0.2 10^3/uL (0.0-0.7); EOSINOPHILS % (AUTO) 2.7 %; HGB - HEMOGLOBIN 14.6 g/dL (14.0-18.0); LYMPHOCYTES # (AUTO) 1.6 10^3/uL (1.5-3.5); LYMPHOCYTES % (AUTO) 21.3 %; MEAN CORPUSCULAR HEMOGLOBIN 29.4 pg (27.0-31.0); MEAN CORPUSCULAR HGB CONC 33.7 g/dL (32.0-36.0); MEAN CORPUSCULAR VOLUME 87.3 fL (80.0-94.0); MEAN PLATELET VOLUME 8.3 fL (7.4-11.4); MONOCYTES # (AUTO) 0.6 10^3/uL (0.0-1.0); MONOCYTES % (AUTO) 8.5 %; NEUTROPHILS # (AUTO) 5.1 10^3/uL (1.5-6.6); NEUTROPHILS % (AUTO) 66.8 %; PLT - PLATELET COUNT 226 10^3/uL (130-450); RED BLOOD COUNT 4.96 10^6/uL (4.70-6.10); RED CELL DISTRIBUTION WIDTH 13.7 % (12.0-15.0); WHITE BLOOD COUNT 7.6 x10^3/uL (4.8-10.8)
[2018-08-30 17:44] LABS: ALBUMIN 4.1 g/dL (3.2-5.5); CALCIUM 9.9 mg/dL (8.5-10.3); CREATININE 1.1 mg/dL (0.6-1.2); TOTAL PROTEIN 8.1 g/dL (6.7-8.2)
== END 2018-08-30 09:21 | disposition home or self-care (01) ==
LOC: LAB.F 09:20
PROVIDERS: ATTEND Nurse Practitioner
DX: K70.31 Alcoholic cirrhosis of liver with ascites (principal); N18.9 Chronic kidney disease, unspecified
CPT/HCPCS: 36415; 80053; 85025

== ENCOUNTER 2018-12-18 08:33 | Outpatient (CLI) | payer MEDICAID ==
[2018-12-18 17:28] LABS: HGB - HEMOGLOBIN 15.3 g/dL (14.0-18.0); MEAN CORPUSCULAR HEMOGLOBIN 29.6 pg (27.0-31.0); MEAN CORPUSCULAR HGB CONC 32.4 g/dL (32.0-36.0); MEAN CORPUSCULAR VOLUME 91.3 fL (80.0-94.0); MEAN PLATELET VOLUME 10.3 fL (7.4-11.4); RED BLOOD COUNT 5.17 10^6/uL (4.70-6.10); RED CELL DISTRIBUTION WIDTH 14.8 % (12.0-15.0); WHITE BLOOD COUNT 12.2 x10^3/uL (4.8-10.8)
[2018-12-18 17:54] LABS: CALCIUM 9.7 mg/dL (8.5-10.3)
[2018-12-18 18:16] LABS: CREATININE,URINE 143.9 mg/dL; PROTEIN/CREATININE RATIO,URINE 0.1 (<=0.2)
== END 2018-12-18 08:34 | disposition home or self-care (01) ==
LOC: LAB.S 08:33
PROVIDERS: ATTEND Internal Medicine Nephrology
DX: N05.9 Unspecified nephritic syndrome with unspecified morphologic changes (principal); D70.9 Neutropenia, unspecified; R80.9 Proteinuria, unspecified
CPT/HCPCS: 36415; 80048; 82570; 84156; 85027

== ENCOUNTER 2019-01-07 13:53 | Outpatient (CLI) | payer MEDICAID ==
[2019-01-07 17:26] LABS: BASOPHILS # (AUTO) 0.1 10^3/uL (0.0-0.1); BASOPHILS % (AUTO) 0.8 %; EOSINOPHILS # (AUTO) 0.3 10^3/uL (0.0-0.7); EOSINOPHILS % (AUTO) 2.5 %; HGB - HEMOGLOBIN 18.7 g/dL (14.0-18.0); LYMPHOCYTES # (AUTO) 2.8 10^3/uL (1.5-3.5); LYMPHOCYTES % (AUTO) 21.8 %; MEAN CORPUSCULAR HEMOGLOBIN 30.6 pg (27.0-31.0); MEAN CORPUSCULAR HGB CONC 32.9 g/dL (32.0-36.0); MEAN CORPUSCULAR VOLUME 92.8 fL (80.0-94.0); MEAN PLATELET VOLUME 9.9 fL (7.4-11.4); MONOCYTES # (AUTO) 1.1 10^3/uL (0.0-1.0); MONOCYTES % (AUTO) 8.8 %; NEUTROPHILS # (AUTO) 8.3 10^3/uL (1.5-6.6); NEUTROPHILS % (AUTO) 64.7 %; PLT - PLATELET COUNT 206 10^3/uL (130-450); RED BLOOD COUNT 6.12 10^6/uL (4.70-6.10); RED CELL DISTRIBUTION WIDTH 15.6 % (12.0-15.0); WHITE BLOOD COUNT 12.9 x10^3/uL (4.8-10.8)
[2019-01-07 17:31] LABS: ALBUMIN 4.6 g/dL (3.2-5.5); ALBUMIN/GLOBULIN RATIO 1.3 (1.0-2.2); BILIRUBIN,TOTAL 1.9 mg/dL (0.2-1.0); CALCIUM 9.3 mg/dL (8.5-10.3); TOTAL PROTEIN 8.2 g/dL (6.7-8.2)
== END 2019-01-07 13:54 | disposition home or self-care (01) ==
LOC: LAB.S 13:53
PROVIDERS: ATTEND Physician Assistant Medical
DX: N18.9 Chronic kidney disease, unspecified (principal); K70.31 Alcoholic cirrhosis of liver with ascites
CPT/HCPCS: 36415; 80053; 85025

== ENCOUNTER 2019-04-07 11:16 | Outpatient (CLI) | payer MEDICAID ==
--- NOTE | 2019-04-07 13:04 | Ultrasound Report ---
Reason: ALCOHOLIC CIRRHOSIS OF LIVER Procedure Date: 04/07/2019 Accession Number: [id number] / [id number] Procedure: US - Abdomen Limited CPT Code: Final Report FULL RESULT: EXAM: ABDOMEN ULTRASOUND LIMITED, RUQ EXAM DATE: 04/07/2019 12:00 PM. CLINICAL HISTORY: ALCOHOLIC CIRRHOSIS OF LIVER. COMPARISON: ABDOMEN LIMITED 04/03/2018 4:46 PM ABDOMEN/PELVIS W/ 04/03/2018 4:23 PM. TECHNIQUE: Real-time scanning was performed with static images obtained. FINDINGS: Liver: Coarsened hepatic echotexture. Mildly irregular contour.No focal lesion. Liver measures 16.1 cm craniocaudally. Main portal vein flow: Hepatopetal. Gallbladder: Gallbladder wall thickness is normal.No gallstones.Sonographic Smith sign is absent, per technologist's notes. Biliary System: Common bile duct measures 4 mm. No intrahepatic ductal dilatation. Pancreas: Visualized portion is unremarkable. Right Kidney: 9.5 cm longitudinally. Normal echotexture.No hydronephrosis.No contour-deforming mass.No calculus. Other: IMPRESSION: 1. Coarsened hepatic echotexture with mildly irregular contour, may reflect underlying cirrhosis. No focal liver lesion. 2. Gallbladder is unremarkable. 3. Common bile duct is normal caliber. RADIA
== END 2019-04-07 11:17 | disposition home or self-care (01) ==
LOC: DI 11:16
PROVIDERS: ATTEND Internal Medicine
DX: K70.30 Alcoholic cirrhosis of liver without ascites (principal)
CPT/HCPCS: 76705

== ENCOUNTER 2020-02-11 11:39 | Outpatient (CLI) | payer MEDICAID ==
--- NOTE | 2020-02-11 12:02 | SLEEP CARE CONSULTATION ---
Information from patient questionnaire entered by Linda Rocha. I have reviewed and concur with the information entered by Linda Rocha. This document represents the service I personally performed and the decisions made by me, Efrain Rowe MD, [facility]. History of Present Illness Service Date and Time: 02/11/2020 1120 Reason for Visit: New patient Chief Complaint: reports: Insomnia, Unrefreshed sleep, Snoring, Excessive daytime sleepiness, Observed pauses in breathing, Fatigue, Frequent awakenings at night Date of Onset: years, most of my life Usual bedtime: dont have one Time it takes to fall asleep: dont know, long time Snores at night: Yes (sometimes) Observed to quit breathing while asleep: Yes Sleeps alone due to snoring: No Number of times waking at night: hourly to bernadette other hour Reasons for waking at night: reports: Snoring, Gasping for air, Pain, Bathroom Toss, Turn, or Twitch while sleeping: Yes Recalls having dreams: Yes Usually gets out of bed at: depends on when i went to sleep Feels refreshed in the morning: No Morning headache: Yes Sleepy or fatigued during the day: Yes Ever fallen asleep while driving: No Takes day naps: Yes Dreams during day naps: No Prior sleep studies: No Additional HPI information: I had the pleasure of seeing Mr. Castañeda today regarding the possibility of him having a sleep disorder. As you know, he is a 35 year old gentleman who complains of insomnia that involves both sleep onset and sleep maintenance. The patient tells me that he normally goes to bed around midnight to 2 am, and it takes him approximately 30 minutes to fall asleep due to anxiety. He has been told that he snores loudly and irregularly at night. He has been also observed to stop breathing in his sleep. His can still sleep in the same bed. He can recall waking up on the average of every hour during the night. He reports him waking up gasping for air. There is a lot of tossing and turning in his sleep. In the morning he usually gets up out of the bed around 6 - 9 a.m. not feeling refreshed nor rested. He usually does have a morning headache. During the day he complains of feeling sleepy and fatigued. His score on Fisher Sleepiness Scale is 12 out of 24. He has never fallen asleep while driving nor has had any accident due to sleepiness. He usually takes naps during the day. He reports having impaired concentration during the day. 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 Patient is and lives in [place]. Have you smoked in the past 12 months: Yes Cigarettes per day (20/pack): 20 Years of smokin Quit date: within the last month, on and off before then Smoking Pack Years: 20.0 Alcohol use: No Caffeine use: Yes Caffeine amount and frequency: 1 cup per day Family History Family history of sleep disordered breathing: Yes (brother) Allergies and Home Medications Drug allergies reviewed: Yes (NSAIDs) Home medication list reviewed: Yes Review of Systems Weight gain over past 5 years: 170 Weight loss over past 5 years: 100 Cardiovascular: reports: palpitations, chest pain, irregular heart rate or pulse, leg or foot swelling Respiratory: reports: shortness of breath, wheeze, sputum production Gastrointestinal: reports: heartburn. denies: difficulty swallowing, nausea, vomitting, diarrhea, abdominal pain, other Urinary: denies: incontinence, frequency, urgency, impotence, other Neurological: reports: head trauma, gait or balance problems Psychiatric: reports: Attention Deficit Hyperactivity, anxiety Ear/Nose/Throat: reports: nasal congestion Endocrine: reports: sluggishness, too hot or cold Musculoskeletal: reports: joint pain, neck pain, back pain, joint swelling, muscle pain or cramping, mobility problems Immunologic: denies: sneezing, rash, itching, allergies to food or environment, other Physical Exam Height: 5 ft 8 in Weight: 200 lb Body Mass Index: 30.4 BMI Classification: Obese Impression and Plan IMPRESSION: 1. Obstructive Sleep Apnea-Hypopnea Syndrome, as suggested by history of loud and irregular snoring, observed cessation of breath while asleep, frequent awakenings during the night, nocturnal choking, unrefreshed sleep, cognitive impairment, and daytime hypersomnolence. Narrow oropharynx and obesity are common predisposing factors for obstructive sleep apnea-hypopnea syndrome. Pathophysiology of sleep-disordered breathing was discussed. I recommend proceeding to polysomnography to confirm the diagnosis and to assess severity. I informed the patient of what the sleep studies involve and after some discussion, he would like to start with a home sleep apnea test (HSAT) because he has agoraphobia. 2. 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 Because the patient stays home most of the time, he ends up napping frequently. He states that he will try to nap if he does not sleep enough at night. This obviously will make insomnia persist. He also has underlying psychiatric disorders that can contribute to the insomnia. The first corrective step is to avoid daytime nap altogether. Plan: 1. Schedule a home sleep apnea test (HSAT). 2. Avoid long distance driving or when feeling sleepy. 3. Avoid alcohol, sedative and muscle relaxant around bedtime. 4. Attempt to lose more weight. 5. Return in 1 to 2 weeks after the test to discuss results and initiate therapy. Visit Type: Telehealth Video Video Type: Studio SBV Patient Location: Home Location of Provider: Home Patient agrees and consents to this telehealth visit type: Yes Patient agrees to have their insurance billed: Yes Time Spent with Patient (minutes): 15 Provider Statement: I spent 100% of the Telehealth Video Call with the patient with greater than 50% spent counseling the patient and coordination of care.
== END 2020-02-11 11:40 | disposition home or self-care (01) ==
LOC: SC 11:39
PROVIDERS: ATTEND Internal Medicine Pulmonary Disease
DX: G47.10 Hypersomnia, unspecified (principal); R06.81 Apnea, not elsewhere classified; G47.8 Other sleep disorders; R41.89 Other symptoms and signs involving cognitive functions and awareness; R06.83 Snoring; G47.20 Circadian rhythm sleep disorder, unspecified type; G47.00 Insomnia, unspecified; E66.9 Obesity, unspecified; Z68.30 Body mass index [BMI] 30.0-30.9, adult

== ENCOUNTER 2020-02-27 09:08 | Outpatient (CLI) | payer MEDICAID ==
[2020-02-27 15:19] LABS: BASOPHILS # (AUTO) 0.1 10^3/uL (0.0-0.1); EOSINOPHILS # (AUTO) 0.3 10^3/uL (0.0-0.7); EOSINOPHILS % (AUTO) 2.8 %; HGB - HEMOGLOBIN 15.8 g/dL (14.0-18.0); LYMPHOCYTES # (AUTO) 2.7 10^3/uL (1.5-3.5); LYMPHOCYTES % (AUTO) 30.4 %; MEAN CORPUSCULAR HEMOGLOBIN 30.4 pg (27.0-31.0); MEAN CORPUSCULAR HGB CONC 33.3 g/dL (32.0-36.0); MEAN CORPUSCULAR VOLUME 91.2 fL (80.0-94.0); MEAN PLATELET VOLUME 10.9 fL (7.4-11.4); MONOCYTES # (AUTO) 0.8 10^3/uL (0.0-1.0); MONOCYTES % (AUTO) 9.1 %; NEUTROPHILS % (AUTO) 56.2 %; PLT - PLATELET COUNT 264 10^3/uL (130-450); RED CELL DISTRIBUTION WIDTH 12.3 % (12.0-15.0); WHITE BLOOD COUNT 8.8 x10^3/uL (4.8-10.8)
[2020-02-27 15:31] LABS: ALBUMIN 4.6 g/dL (3.2-5.5); ALBUMIN/GLOBULIN RATIO 1.5 (1.0-2.2); BILIRUBIN,TOTAL 0.9 mg/dL (0.2-1.0); CALCIUM 9.9 mg/dL (8.5-10.3); CREATININE 1.2 mg/dL (0.6-1.2); TOTAL PROTEIN 7.7 g/dL (6.7-8.2)
[2020-02-27 15:37] LABS: CHOL/HDL RATIO 7.4 (<5.0); CHOLESTEROL 266 mg/dL; HDL CHOLESTEROL 36 mg/dL; LDL CHOLESTEROL,CALCULATED 208 mg/dL; LDL/HDL RATIO 5.8 (<3.6); VLDL CHOLESTEROL 22 mg/dL
[2020-02-27 20:24] LABS: HEMOGLOBIN A1c% 5.2 % (4.27-6.07)
== END 2020-02-27 09:09 | disposition home or self-care (01) ==
LOC: LAB.S 09:08
PROVIDERS: ATTEND Internal Medicine
DX: Z00.00 Encounter for general adult medical examination without abnormal findings (principal); I12.9 Hypertensive chronic kidney disease with stage 1 through stage 4 chronic kidney disease, or unspecified chronic kidney disease; N18.9 Chronic kidney disease, unspecified; K70.31 Alcoholic cirrhosis of liver with ascites; Z79.899 Other long term (current) drug therapy
CPT/HCPCS: 36415; 80053; 80061; 83036; 83721; 84443; 85025

== ENCOUNTER 2020-06-26 16:53 | Outpatient (CLI) | payer MEDICAID | END 2020-06-26 16:54 | disposition home or self-care (01) | LOC: COV 16:53 | DX: Z01.812 Encounter for preprocedural laboratory examination (principal); Z20.822 Contact with and (suspected) exposure to COVID-19 ==

== ENCOUNTER 2021-08-15 22:55 | Outpatient (CLI) | payer MEDICAID | END 2021-08-15 22:56 | disposition EMS.NT | LOC: EMS 22:55 | DX: S61.411A Laceration without foreign body of right hand, initial encounter (principal); V48.5XXA Car driver injured in noncollision transport accident in traffic accident, initial encounter; Y92.410 Unspecified street and highway as the place of occurrence of the external cause ==

== ENCOUNTER 2022-11-24 14:36 | Outpatient (CLI) | payer MEDICAID ==
[2022-11-24 20:02] LABS: ALBUMIN 4.4 g/dL (3.2-5.5); ALBUMIN/GLOBULIN RATIO 1.4 (1.0-2.2); BILIRUBIN,TOTAL 0.3 mg/dL (0.2-1.0); CALCIUM 9.4 mg/dL (8.5-10.3); POTASSIUM 3.8 mmol/L (3.5-4.5); TOTAL PROTEIN 7.5 g/dL (6.4-8.9)
== END 2022-11-24 14:37 | disposition home or self-care (01) ==
LOC: LAB.S 14:36
PROVIDERS: ATTEND Nurse Practitioner
DX: R10.9 Unspecified abdominal pain (principal)
CPT/HCPCS: 36415; 80053